=== PATIENT | female | born 1955 | race Caucasian/White ===

== ENCOUNTER 2019-06-05 09:15 | Day surgery (SDC) | payer OTHER ==
[~2019-06-05] VITALS: Ht 162.6 cm; Wt 64.9 kg
--- NOTE | ~2019-06-05 | OR ---
[facility] [address], [place] [address] Draft DATE OF OPERATION: 06/05/2019 SURGEON: Daron Hinojosa MD PREOPERATIVE DIAGNOSES: 1. Right upper quadrant abdominal pain radiating through to her back. 2. Early satiety and bloating. 3. Constipation and diarrhea. POSTOPERATIVE DIAGNOSES: 1. 4 mm polyps at 70 cm, 55 cm, 40 cm, and 18 cm. 2. Moderate sigmoid diverticulosis. 3. Iswscsw-hi-kkszftim internal and external hemorrhoids. PROCEDURE PERFORMED: Colonoscopy with hot biopsy. ESTIMATED BLOOD LOSS: None. INDICATIONS: Tammi is a 63-year-old female, asked to see me for colonoscopy. She presents with the above symptoms. She had a brain aneurysm clipped while living in [place]. Consequently, her memory is not the best. Due to her symptoms, we did send her off for an ultrasound of the right upper quadrant on 05/23/2019. That is reviewed today and found to be unremarkable, specifically with respect to the liver, gallbladder, and the extrahepatic bile ducts. In addition, she had laboratory work performed and her renal function is fine. Her liver function is fine. Her albumin is good at 4.1 and her hemoglobin was good at 14.3. She also underwent an EKG of her heart and she is in normal sinus rhythm, but there is question whether or not she may have had a septal infarct with associated ST abnormalities as well. That something I would leave to her and her primary care provider as an outpatient. In the meantime, we did review our colonoscopy handout in detail. She is not sure she has ever had a colonoscopy. She is pretty certain she had an upper endoscopy while living in [place]. She told me to her knowledge she has no family history of colon cancer or polyps. In the office then we had reviewed the nature of the test along with its risks including, but not limited to gas, bloating, crampy abdominal pain, bleeding, perforation, requiring surgery, and missed diagnosis. We also reviewed the written instructions for the bowel prep. She also understands the need for IV conscious sedation. She had a tracheostomy previously, but seems to have no airway issues. Consequently, we did schedule her with Versed and PATIENT NAME: TAMMI MATIAS OPERATIVE REPORT DATE OF : 59 REPORT #: [id number] PHYSICIAN: DARON HINOJOSA MD PCP: PAUL BRYAN REPORT IS CONFIDENTIAL AND NOT TO BE RELEASED WITHOUT AUTHORIZATION [facility] [address], [place] [address] Draft fentanyl. She had expressed understanding and wished to proceed. DESCRIPTION OF PROCEDURE: Tammi was taken into our endoscopy suite and placed in the left lateral decubitus position. She was given a total of 7 mg of Versed and 150 mcg of fentanyl. A digital rectal exam was performed. She had some wgvraxh-gv-ejksxxuq circumferential external hemorrhoids. After this, the adult colonoscope was introduced and advanced under direct visualization into the cecum itself. She took some additional sedation as the scope was advanced. Her prep was good. The scope was slowly withdrawn. We could easily see the appendiceal orifice and the ileocecal valve. We took pictures throughout for photodocumentation. The above-mentioned polyps were easily removed with the help of hot biopsy forceps. In the sigmoid colon, she had moderate sigmoid diverticulosis. They were moderate in size, few to moderate in number, and scattered about. Once in the rectum, the scope was then retroflexed and she did have icplnbs-ze-svlvnuqv internal hemorrhoid columns as well. After this, the gas was suctioned out and the colonoscope removed. Overall, Tammi tolerated the procedure quite well. RECOMMENDATIONS: I will see Tammi back in my office in 7 to 14 days to review her results. She will avoid aspirin and NSAIDs for one week. I will review her ultrasound, laboratory work, and EKG with her in the office. Again, I will leave the EKG findings up to her primary care provider. MD FELIX Carter/DANIELLAL /[id number] cc: BHARATH Martel MD Bruce Anguiano Copies: PAUL BRYAN PATIENT NAME: TAMMI MATIAS OPERATIVE REPORT DATE OF : 59 REPORT #: [id number] PHYSICIAN: DARON HINOJOSA MD PCP: PAUL BRYAN REPORT IS CONFIDENTIAL AND NOT TO BE RELEASED WITHOUT AUTHORIZATION [facility] [address] [place], [place] [address] Draft DARON HINOJOSA MD, BRUCE ~ PATIENT NAME: TAMMI MATIAS OPERATIVE REPORT DATE OF : 59 REPORT #: [id number] PHYSICIAN: DARON HINOJOSA MD PCP: PAUL BRYAN REPORT IS CONFIDENTIAL AND NOT TO BE RELEASED WITHOUT AUTHORIZATION
[~2019-06-05 09:15] MED LIST: CYMBALTA20 MG PO; LIPITOR20 MG PO; LISINOPRIL-HCT1 EACH PO; METOPROLOL SUCC50 MG PO; NORVASC5 MG PO; OMEPRAZOLE20 MG PO; ROBAXIN-750750 MG PO
--- NOTE | 2019-06-05 11:31 | NUR ---
06/05/19 1131 Sheets,Sylvia 1126 PT ARRIVED TO PACU ON 3L VIA NC, PT REACTIVE TO TACTILE STIMULI. PT DENIES NAUSEA AND PAIN. PT REORIENTED TO PACU. PT BACK TO SLEEP AND RESP EVEN AND UNLABORED.
== END 2019-06-05 12:14 | disposition home or self-care (01) ==
LOC: OPS 09:15 → DS 09:15 → OPS 10:30 → DS 10:30 → OPS 12:14
PROVIDERS: Colon & Rectal Surgery
PROC: 0DBE8ZZ Excision of Large Intestine, Via Natural or Artificial Opening Endoscopic (ICD-10-PCS; principal; 2019-06-05 10:30)
DX: D12.6 Benign neoplasm of colon, unspecified (principal); K63.5 Polyp of colon; K57.30 Diverticulosis of large intestine without perforation or abscess without bleeding; K64.8 Other hemorrhoids; K64.4 Residual hemorrhoidal skin tags; I10 Essential (primary) hypertension; K21.9 Gastro-esophageal reflux disease without esophagitis; M06.9 Rheumatoid arthritis, unspecified; F17.210 Nicotine dependence, cigarettes, uncomplicated; Z79.899 Other long term (current) drug therapy
CPT/HCPCS: 99153; 99406; G0500; J2250; J3010; J7120

== ENCOUNTER 2020-03-27 07:36 | Inpatient (IN) | payer OTHER ==
[~2020-03-27] VITALS: Ht 162.6 cm; Wt 58.7 kg
--- OUTSIDE RECORDS SUMMARY | ~2020-03-27 | XMS | Encounter Summary ---
Demographics + + + | Address | [address] | | | [place] [address] | + + + | Home Phone | | + + + | Preferred Language | Unknown | + + + | Marital Status | Single | + + + | Restorationism Affiliation | Unknown | + + + | Race | Unknown | + + + | Ethnic Group | Unknown | + + + Author + + + | Author | [facility] | | | and [place] | + + + | Organization | [facility] | | | and [place] | + + + | Address | Unknown | + + + | Phone | Unavailable | + + + Support + + +---------+ + | Name | Relationship | Address | Phone | + + +---------+ + | Johnathan Patel | ECON | Unknown | | + + +---------+ + Care Team Providers + +------+ + | Care Rrt Name | Role | Phone | + +------+ + | Johnny Anguiano MD | PCP | | + +------+ + Encounter Details +--------+ + + + + | Date | Type | Department | Care Team | Description | +--------+ + + + + | 11/24/ | Telephone | [facility] | Roxanna Collado RN | | | 2019 | | [facility] [address] | | | | | | [address] | | | | | | [place] | | | | | | [address] | | | | | | [phone] | | | +--------+ + + + + Social History + +-------+ +--------+------+ | Tobacco Use | Types | Packs/Day | Years | Date | | | | | Used | | + +-------+ +--------+------+ | Current Every Day | | 0.5 | | | | Smoker | | | | | + +-------+ +--------+------+ + +---+---+---+ | Smokeless Tobacco: | | | | | Never Used | | | | + +---+---+---+ + + +---------+ + | Alcohol Use | Drinks/Week | oz/Week | Comments | + + +---------+ + | Never | | | | + + +---------+ + + + + + | Alcohol Habits | Answer | Date Recorded | + + + + | How often do you have a drink containing | Never | 11/12/2019 | | alcohol? | | | + + + + | How many drinks containing alcohol do you | Not asked | | | have on a typical day when you are | | | | drinking? | | | + + + + | How often do you have six or more drinks on | Not asked | | | one occasion? | | | + + + + + + + | Sex Assigned at | Date Recorded | | | | + + + | Not on file | | + + + documented as of this encounter Plan of Treatment +--------+---------+ + + + | Date | Type | Specialty | Care Team | Description | +--------+---------+ + + + | 06/10/ | Office | Pulmonology | [place], | | | 2019 | Visit | | Kayy Boyd, | | | | | | MD [address] | | | | | | [place], | | | | | | [place] [address] | | | | | | [phone] | | | | | | | | +--------+---------+ + + + documented as of this encounter Visit Diagnoses Not on filedocumented in this encounter"
--- OUTSIDE RECORDS SUMMARY | ~2020-03-27 | XMS | Encounter Summary ---
Demographics + + + | Address | [address] | | | [place] [address] | + + + | Home Phone | | + + + | Preferred Language | Unknown | + + + | Marital Status | Single | + + + | Orthodoxy Affiliation | Unknown | + + + | Race | Unknown | + + + | Ethnic Group | Unknown | + + + Author + + + | Author | [facility] | | | and [place] | + + + | Organization | [facility] | | | and [place] | [...] Team Providers + +------+ + | Care Fish And Wildlife Warden Name | Role | Phone | + +------+ + | Ruben An | PCP | | + +------+ + Encounter Details +--------+ + + + + | Date | Type | Department | Care Team | Description | +--------+ + + + + | 11/12/ | Documentati | [facility] | Brigitte Márquez RN | | | 2020 | on | PULMONOLOGY [address] | | | | | | [address] | | | | | | [place] | | | | | | [address] | | | | | | [phone] | | | +--------+ + + + [...] + + documented as of this encounter Progress Notes Brigitte Márquez RN - 11/12/2019 11:46 AM PSTCompleted teaching regarding Spiriva hand inhaler. Tammi stated understanding of all education. Tammi completed accurate return demonstratio n using Spiriva hand inhaler. Tammi had no further questions or concerns. Electronically si gned by Brigitte Márquez RN at 11/12/2019 11:48 AM PSTdocumented in this encounter Plan of Treatment +--------+---------+ + + + | Date | Type | Specialty | Care Team | Description | +--------+---------+ + + + | 06/10/ | Office | Pulmonology | [place], | | 2019 | Visit | | Kayy Boyd, | | | | | | MD [address] | | | | | | [place], | | | | | | [place] [address] | | | | | | [phone] | | | | | | | | +--------+---------+ + + + documented as of this encounter Visit Diagnoses Not on filedocumented in this encounter"
--- OUTSIDE RECORDS SUMMARY | ~2020-03-27 | XMS | Encounter Summary ---
Demographics + + + | Address | [address] | | | [place] [address] | + + + | Home Phone | | + + + | Preferred Language | Unknown | + + + | Marital Status | Single | + + + | Mormonism Affiliation | Unknown | + + + | Race | Unknown | + + + | Ethnic Group | Unknown | + + + Author + + + | Author | [facility] | | | and [place] | + + + | Organization | [facility] | | | and [place] | [...] Team Providers + +------+ + | Care Workers Compensation Analyst Name | Role | Phone | + +------+ + | Johnny Anguiano MD | PCP | | + +------+ + Reason for Referral Diagnostic/Screening (Routine) + +--------+ + + + + | Status | Reason | Specialty | Diagnoses / | Referred By | Referred To | | | | | Procedures | Contact | Contact | + +--------+ + + + + | Authorizatio | | | Diagnoses | [place], | [facility] | | n not | | | Chronic | [place] | [facility] | | Required | | | obstructive | MD Deb | [address] | | | | | pulmonary | [address] | | | | | disease, | [address] | [place], [place] | | | | | unspecified | [place] | [address] | | | | | COPD type | [place] | Phone: | | | | | ([facility]) | [address] | [phone] | | | | | Procedures | Phone: | Fax: | | | | | Pulmonary | [phone] | [phone] | | | | | function | Fax: | | | | | | test | [phone] | | + +--------+ + + + + Reason for Visit Evaluate & Treat (Routine) +--------+--------+ + + + + | Status | Reason | Specialty | Diagnoses / | Referred By | Referred To | | | | | Procedures | Contact | Contact | +--------+--------+ + + + + | Closed | | Pulmonology | Diagnoses | Matilde, | Bassam, | | | | | SOB | Clayton Hartman | Kayy | | | | | (shortness | [address] | Deb[address] | | | | | of breath) | Gaye Rodas | [address] | | | | | RIGGS (dyspnea | [place] | [place] | | | | | on | [place] | [place] | | | | | exertion) | [address] | [address] Phone: | | | | | | Phone: | [phone] | | | | | | [phone] | Fax: | | | | | | Fax: | [phone] | | | | | | [phone] | | +--------+--------+ + + + + Encounter Details +--------+ + + + + | Date | Type | Department | Care Team | Description | +--------+ + + + + | 02/11/ | Virtual | [facility] | Bassam, | Chronic obstructive | | 2019 | Office | PULMONOLOGY [address] | Kayy Boyd, | pulmonary disease, | | | Visit | [address] [address] | MD [address] | unspecified COPD | | | | [place] | [address], | type (HCC) (Primary | | | | [address] | [place] [address] | Dx); Adenocarcinoma, | | | | [phone] | [phone] | lung, right (HCC); | | | | | | Chronic respiratory | | | | | | failure with hypoxia | | | | | | ([facility]); Personal | | | | | | history of tobacco | | | | | | use, presenting | | | | | | hazards to health | +--------+ + + + + Social [...] | | | + +---+---+---+ + + | Tobacco Cessation: Ready to Quit: Yes; Counseling Given: Yes | + + + + +---------+ + | Alcohol Use | Drinks/Week | oz/Week | Comments | + + +---------+ + | Not Currently | | | occasionally maybe | + + +---------+ + + + [...] + documented as of this encounter Progress Kayy Robertson MD - 02/12/2020 10:30 AM PDTFormatting of this note might be d ifferent from the original. This exam was initially conducted via a secure 256-bit AES encrypted bidirectional video se [employer]. Service was provided tvvl-av-huah with the patient via interactive videoconferencing Video start time 1035 Video end time 1050 Total time (in minutes) including non ycne-ig-xuez time (reviewing records, documentation, etc..) 30 You have chosen to receive care through the use of telemedicine. Telemedicine enables [facility] care providers at different locations to provide safe, effective and convenient care throu gh the use of technology. As with any health care service, there are risks associated with t he use of telemedicine, including equipment failure, poor image resolution and information s ecurity issues. Do you understand the risks and benefits of telemedicine as I have explained them to you? " Yes" Have your questions regarding telemedicine been answered? "Yes" Participant is currently at home Do you consent to the use of telemedicine in your medical care today? Yes. Last question, I need to confirm where are you physically located right now? Answer: Patient confirms they are located in a state where Kayy Mitchell M D am licensed. Subjective Patient ID: Tammi Laura is a 64 y.o. female with CAD post PCI, HPL, history of trac heostomy due to a severe tooth infection, history of RA (untreated currently but used to be on Orencia), active smoker, suspected COPD here to establish care. HPI Ms Laura is a 64 yr old woman who has a history of CAD post PCI, history of tracheostomy for an infected tooth about 30 years ago, active smoker, referred to us for dyspnea on exert ion. She says that she has been short of breath for many years, but this seems to have been worsened by an acute URI about 2-3 months ago. She has an albuterol inhaler to use as needed which she thinks has not really helped as much. Clinically, she is short of breath with moderate exertion -when climbing an incline, walkin g for a prolonged period of time, carrying a heavy load and walking, and going grocery shopp ing. She does minor chores at home, and is able to cook for her family. She seems to do well with ADLs and is able to shower and get dressed without difficulty. She has a daily cough w ith clear phlegm, and also complains of significant post nasal drainage. She says that this is worse during the morning, and so is her shortness of breath. She denies chest pains, but does get chest tightness. She has untreated RA and does have arthralgias of her hands. She d enies nausea or vomiting, but does have persistent and uncontrolled reflux s/s, and RUQ pain . She is getting evaluated for cholecystectomy and possibly a hiatal hernia repair. Interval History Ms Laura comes in for telemedicine follow up. She was diagnosed with adenocarcinoma of th e RUL -nodule found on a CXR and then a CT scan. She has completed radiation txt, and will n eed get repeat CT of the chest soon. She gets care from [facility] through Dr Huber and Dr Bernal. Of note, she developed a PTX post biopsy of a nodule we noted on routine imaging. She was s ent home with oxygen after this. She has not used this often. She complains that she has bee n feeling fatigued. Her dyspnea remains the same. She has stayed at home and ascribed to soc ial distancing. She denies having any cough. She has used Spiriva daily, and not needed albuterol HFA. She has not used oxygen at home a t all, and has not monitored her saturations. SOCIAL HISTORY She is an active smoker, 1/2 to 1 pack a day for 40 years. 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 She used to live in [place]. She has dogs at home. She denies owning birds. Family history significant for COPD and CAD. The following elements of the patient's history were reviewed and updated as appropriate. T hey are available elsewhere in the patient record. allergies, current medications, past fam birgit history, past medical history, past social history, past surgical history and problem li st Review of Systems Constitutional: Negative for fatigue, fever and unexpected weight change. HENT: Positive for congestion and postnasal drip. Negative for sore throat, trouble swallow ing and voice change. Respiratory: Positive for cough, shortness of breath and wheezing. Negative for apnea, chok ing and stridor. Cardiovascular: Negative for chest pain, palpitations and leg swelling. Gastrointestinal: Positive for abdominal pain. Negative for constipation, diarrhea, nausea and vomiting. Genitourinary: Negative for difficulty urinating. Musculoskeletal: Positive for arthralgias. Negative for back pain, gait problem, joint swel ling, myalgias and neck pain. Skin: Negative for rash. Neurological: Negative for dizziness. Psychiatric/Behavioral: Negative for sleep disturbance. All other systems reviewed and are negative. Past Medical History: Diagnosis Date Arthritis COPD (chronic obstructive pulmonary disease) (HCC) Coronary artery disease Fibromyalgia Hypertension Past Surgical History: Procedure Laterality Date BRAIN ANEURYSM SURGERY CARDIAC CATHERIZATION CERVICAL SPINE SURGERY CORONARY ANGIOPLASTY CORONARY ANGIOPLASTY WITH STENT PLACEMENT CRANIECTOMY HYSTERECTOMY LUNG BIOPSY 11/26/2019 Procedure: CT GUIDED BIOPSY LUNG OR MEDIASTINUM - Location: [facility] CT TRACHEOSTOMY CLOSURE VAGINA SURGERY Objective There were no vitals taken for this visit. Physical Exam GENERAL: pleasant, cooperative, oriented, not in distress NEURO: awake and oriented, no focal neurologic deficits LABORATORY AND IMAGING Pulmonary Function Test: None done FEV1 FVC FEV1/FVC TLC RV/TLC DLCO No imaging to review. PET CT done on 11/18/19 IMPRESSION: Summary of Target Lesions: 1. Lobulated spiculated mass in the posterolateral right lower lobe /80 measuring 2.3 x 1.9 cm, SUV 11.5. 2. Posterior right upper lobe nodule /52 measuring 4 mm, SUV 1.0. 3. Anterior right upper lobe nodule 4/62 measuring 5 mm, SUV 1.4. Other PET/CT Findings: 1. A few presumed blebs in the bilateral upper lobes. See above. 2. Hysterectomy. Comments: 1. Right lower lobe pulmonary mass with uptake, probably due to primary lung malignancy, with multiple small bilateral pulmonary nodules with faint uptake. I cannot exclude metastatic disease. 2. Mild uptake in both hilar regions, probably physiologic. Histopathology 11/26/19 FINAL PATHOLOGIC DIAGNOSIS: Lung, right lower lobe, biopsy: - Well to moderately differentiated adenocarcinoma Assessment /Plan 1. Chronic obstructive pulmonary disease, unspecified COPD type (HCC) Ms Laura has COPD. She has remained compliant with Spiriva 18 mcg daily and prn albuterol . We still do not have baseline PFT due to urgent diagnosis of cancer. We will postpone this until the pandemic is done. Continue with efforts at staying active at home. 2. Adenocarcinoma, lung, right (HCC) She was found to have a RUL nodule that was found to be adenocarcinoma. She has undergone r adiation txt and will soon have a repeat CT chest to determine its progress/resolution. 3. Chronic respiratory failure with hypoxia (HCC) I have instructed her to obtain an oximeter and to monitor her saturations during the day, especially when walking. She should go back to using her oxygen if she finds that sats drop to 88%. I will send overnight oximetry to determine if she will need oxygen supplementation at night. 4. Personal history of tobacco use, presenting hazards to health Continue with efforts at smoking cessation. Thank you for allowing us to participate in this patient's care. A return visit has been re quested/scheduled in 4 months for close clinical follow up. The patient was instructed to ca ll our clinic for any questions, and for any concerns regarding worsening dyspnea, cough or change in sputum production. We will see the patient sooner than the recommended follow up d ate, if with any worsening of symptoms. Kayy Banegas MD Pulmonary and Critical Care Medicine [facility] [address] [facility] [place] [address] documente d in this encounter Miscellaneous Notes Addendum Note - Kayy Banegas MD - 02/12/2020 10:30 AM PDT Addended by: KAYY BURNS on: 02/18/2020 04:12 PM Modules accepted: Orders documen felicia in this encounter Plan of Treatment +--------+---------+ + + + | Date | Type | Specialty | Care Team | Description | +--------+---------+ + + + | 06/10/ | Office | Pulmonology | Bassam, | | | 2019 | Visit | | Kayy Boyd, | | | | | | [address] | | | | | | [place], | | | | | | [place] [address] | | | | | | [phone] | | | | | | | | +--------+---------+ + + + + +------+--------+ + + | Name | Type | Priori | Associated Diagnoses | Order Schedule | | | | ty | | | + +------+--------+ + + | Pulmonary function | PFT | Routin | Chronic | Expected: | | test | | e | obstructive | 02/19/2020, Expires: | | | | | pulmonary disease, | 02/17/2021 | | | | | unspecified COPD | | | | | | type (HCC) | | + +------+--------+ + + documented as of this encounter Visit Diagnoses + + | Diagnosis | + + | Chronic obstructive pulmonary disease, unspecified COPD type (HCC) - Primary | + + | Adenocarcinoma, lung, right (HCC) | + + | Chronic respiratory failure with hypoxia (HCC) Chronic respiratory failure | + + | Personal history of tobacco use, presenting hazards to health | + + documented in this encounter
--- OUTSIDE RECORDS SUMMARY | ~2020-03-27 | XMS | Clinical Summary ---
Demographics + + + | Address | [address] | | | [place] [address] | + + + | Home Phone | | + + + | Preferred Language | Unknown | + + + | Marital Status | Single | + + + | Congregational Affiliation | Unknown | + + + | Race | Unknown | + + + | Ethnic Group | Unknown | + + + Author + + + | Author | [facility] | | | and [place] | + + + | Organization | [facility] | | | and [place] [...] Team Providers + +------+ + | Care Etiquette Teacher Name | Role | Phone | + +------+ + | Johnny Anguiano MD | PCP | | + +------+ + Allergies No Known Allergies Medications + + + +---------+------+------+-------+ | Medication | Sig | Dispensed | Refills | Star | End | Statu | | | | | | t | Date | s | | | | | | Date | | | + + + +---------+------+------+-------+ | ACETAMINOPHEN | | | 0 | 11/0 | | Activ | | EXTRA STRENGTH 500 | | | | 6/20 | | e | | MG tablet | | | | 19 | | | + + + +---------+------+------+-------+ | amLODIPine | Take 5 mg by mouth | | 0 | 01/2 | | Activ | | (NORVASC) 5 mg | Daily. | | | 06/06 | | e | | tablet | | | | 20 | | | + + + +---------+------+------+-------+ | | Daily. | | 0 | 01/2 | | Activ | | lisinopril-hydrochlo | | | | 0/20 | | e | | rothiazide | | | | 20 | | | | (PRINZIDE,ZESTORETIC | | | | | | | | ) 20-12.5 MG per | | | | | | | | tablet | | | | | | | + + + +---------+------+------+-------+ | metoprolol | Daily. | | 0 | 02/1 | | Activ | | succinate | | | | 8/20 | | e | | (TOPROL-XL) 50 mg 24 | | | | 20 | | | | hr tablet | | | | | | | + + + +---------+------+------+-------+ | atorvaSTATin | Take 20 mg by mouth | | 0 | 02/0 | | Activ | | (LIPITOR) 20 mg | nightly. | | | 8/20 | | e | | tablet | | | | 20 | | | + + + +---------+------+------+-------+ | DULoxetine | Daily. | | 0 | 02/1 | | Activ | | (IRENKA) [address] | | | | 8/20 | | e | | capsule | | | | 20 | | | + + + +---------+------+------+-------+ | methocarbamol | every 8 hours as | | 0 | 01/0 | | Activ | | (ROBAXIN) 750 mg | needed. | | | 6/20 | | e | | tablet | | | | 20 | | | + + + +---------+------+------+-------+ | omeprazole | Take 20 mg by mouth | | 0 | 02/1 | | Activ | | (PRILOSEC) 20 mg | 2 times daily. | | | 8/20 | | e | | capsule | | | | 20 | | | + + + +---------+------+------+-------+ | albuterol 90 | Inhale 2 puffs into | | 0 | 01/0 | | Activ | | mcg/puff inhaler | the lungs every 4 | | | 4/20 | | e | | | hours as needed. | | | 20 | | | + + + +---------+------+------+-------+ | tiotropium | inhale contents of 1 | 30 | 3 | 04/0 | | Activ | | (SPIRIVA HANDIHALER) | capsule by mouth | capsule | | 8/20 | | e | | 18 mcg inhalation | once daily (DO NOT | | | 20 | | | | capsuleIndications: | SWALLOW) | | | | | | | Chronic obstructive | | | | | | | | pulmonary disease, | | | | | | | | unspecified COPD | | | | | | | | type ([facility]) | | | | | | | + + + +---------+------+------+-------+ | aspirin 81 mg | Chew and swallow 1 | | 0 | | | Activ | | chewable tablet | tablet Daily. | | | | | e | + + + +---------+------+------+-------+ Active Problems + + + | Problem | Noted Date | + + + | Coronary artery disease involving [place] coronary artery of | 02/16/2020 | | [place] heart without angina pectoris | | + + + | HTN (hypertension) | 02/16/2020 | + + + | Tobacco abuse | 02/16/2020 | + + + | Frontal skull lesion | 01/05/2020 | + + + | Incidental pulmonary nodule, greater than or equal to 8mm | 11/27/2019 | + + + Encounters +--------+ + + + + | Date | Type | Specialty | Care Team | Description | +--------+ + + + + | 02/15/ | Virtual | Cardiology | Supriya Becerra DO | Coronary artery | | 2019 | Office | | | disease involving | | | Visit | | | [place] coronary | | | | | | artery of [place] | | | | | | heart without angina | | | | | | pectoris; | | | | | | Hypertension, | | | | | | unspecified type; | | | | | | Tobacco abuse | +--------+ + + + + | 02/11/ | Virtual | Pulmonology | Bassam, | Chronic obstructive | | 2019 | Office | | Kayy Boyd, | pulmonary disease, | | | Visit | | MD | unspecified COPD | | | | | | type (HCC) (Primary | | | | | | Dx); Adenocarcinoma, | | | | | | lung, right (HCC); | | | | | | Chronic respiratory | | | | | | failure with hypoxia | | | | | | (HCC); Personal | | | | | | history of tobacco | | | | | | use, presenting | | | | | | hazards to health | +--------+ + + + + | 02/11/ | Documentati | Pulmonology | Evert Devries, | Other (Faxed rx for | | 2019 | on | | Setup Technician | overnight oximetry | | | | | | to In Home ) | +--------+ + + + + | 02/09/ | Telephone | Neurosurgery | Clayton Howard DO | Imaging | | 2019 | | | | | +--------+ + + + + | 01/21/ | Office | Cardiology | Supriya Becerra DO | Atherosclerosis of | | 2019 | Visit | | | coronary artery, | | | | | | angina presence | | | | | | unspecified, | | | | | | unspecified vessel | | | | | | or lesion type, | | | | | | unspecified whether | | | | | | [place] or | | | | | | transplanted heart | | | | | | (Primary Dx) | +--------+ + + + + | 01/04/ | Virtual | Neurosurgery | Clayton Howard DO | Frontal skull lesion | | 2019 | Office | | | (Primary Dx) | | | Visit | | | | +--------+ + + + + from Last 3 Months Family History + + +------+ + | Medical History | Relation | Name | Comments | + + +------+ + | COPD | Father | | | + + +------+ + | Heart attack | Father | | | + + +------+ + | High cholesterol | Father | | | + + +------+ + | Hypertension | Father | | | + + +------+ + + +------+ + + | Relation | Name | Status | Comments | + +------+ + + | Father | | | | + +------+ + + | Mother | | | | + +------+ + + Social History + +-------+ +--------+------+ [...] on file | | + + + Last Filed Vital Signs + + + + + | Vital Sign | Reading | Time Taken | Comments | + + + + + | Blood Pressure | 100/70 | 01/22/2020 9:18 AM | | | | | PDT | | + + + + + | Pulse | 74 | 01/22/2020 9:18 AM | | | | | PDT | | + + + + + | Temperature | 36.9 C (98.4 F) | 11/27/2019 3:45 PM | | | | | PDT | | + + + + + | Respiratory Rate | 16 | 11/27/2019 3:45 PM | | | | | PDT | | + + + + + | Oxygen Saturation | 96% | 01/22/2020 9:18 AM | | | | | PDT | | + + + + + | Inhaled Oxygen | - | - | | | Concentration | | | | + + + + + | Weight | 58.5 kg (129 lb) | 02/16/2020 12:45 PM | | | | | PDT | | + + + + + | Height | 162.6 cm (5' 4") | 02/16/2020 12:45 PM | | | | | PDT | | + + + + + | Body Mass Index | 22.14 | 02/16/2020 12:45 PM | | | | | PDT | | + + + + + Plan of Treatment +--------+---------+ + + + [...] | | | | | | [place] [id number] | | | | | | [phone] | | | | | | | | +--------+---------+ + + + + + +-------+ + | Health Maintenance | Due Date | Last | Comments | | | | Done | | + + +-------+ + | Hepatitis C | | | | | Screening | 7 | | | + + +-------+ + | Vaccine: | | | | | Pneumococcal 19-64 | 3 | | | | (1 of 1 - PPSV23) | | | | + + +-------+ + | Vaccine: | | | | | Dtap/Tdap/Td (1 - | 6 | | | | Tdap) | | | | + + +-------+ + | Cervical Cancer | | | | | Screening (Pap) | 7 | | | + + +-------+ + | Colorectal Cancer | | | | | Screening | 7 | | | | (Colonoscopy) | | | | + + +-------+ + | Vaccine: Zoster (1 | | | | | of 2) | 7 | | | + + +-------+ + | Breast Cancer | | | | | Screening | 2 | | | + + +-------+ + | Statin Therapy | | | | | (optimal intensity) | 9 | | | + + +-------+ + | Vaccine: Influenza | | | | | (#1) | 0 | | | + + +-------+ + Procedures + +--------+ + + + | Procedure Name | Priori | Date/Time | Associated Diagnosis | Comments | | | ty | | | | + +--------+ + + + | ECG - EXTERNAL SCAN | | 02/04/2020 | | Results for this | | | | 12:00 AM | | procedure are in the | | | | PDT | | results section. | + +--------+ + + + | IMAGING REPORT - | | 02/04/2020 | | Results for this | | EXTERNAL SCAN | | 12:00 AM | | procedure are in the | | | | PDT | | results section. | + +--------+ + + + | ECHO-EXTERNAL SCAN | | 01/30/2020 | | Results for this | | | | 12:00 AM | | procedure are in the | | | | PDT | | results section. | + +--------+ + + + | ECG 12 LEAD | Routin | 01/22/2020 | Atherosclerosis of | Results for this | | | e | 9:23 AM | coronary artery, | procedure are in the | | | | PDT | angina presence | results section. | | | | | unspecified, | | | | | | unspecified vessel | | | | | | or lesion type, | | | | | | unspecified whether | | | | | | [place] or | | | | | | transplanted heart | | + +--------+ + + + from Last 3 Months Results IMAGING REPORT - EXTERNAL SCAN (02/04/2020 12:00 AM PDT) + + + | Narrative | Performed At | + + + | Ordered by an | | | unspecified provider. | | + + + ECG - EXTERNAL SCAN (02/04/2020 12:00 AM PDT) + + + | Narrative | Performed At | + + + | Ordered by an | | | unspecified provider. | | + + + ECHO-EXTERNAL SCAN (01/30/2020 12:00 AM PDT) + + + | Narrative | Performed At | + + + | Ordered by an | | | unspecified provider. | | + + + ECG 12 lead (01/22/2020 9:23 AM PDT) + + + + + + | Component | Value | Ref Range | Performed | Pathologist | | | | | At | Signature | + + + + + + | VENTRICULAR | 73 | BPM | [facility] | | | RATE EKG | | | | | + + + + + + | ATRIAL RATE | 73 | BPM | [facility] | | + + + + + + | P-R | 142 | ms | [facility] | | | INTERVAL | | | | | + + + + + + | QRS | 92 | ms | [facility] | | | DURATION | | | | | + + + + + + | Q-T | 412 | ms | [facility] | | | INTERVAL | | | | | + + + + + + | Q-T | 453 | ms | [facility] | | | INTERVAL | | | | | | (CORRECTED) | | | | | + + + + + + | P WAVE AXIS | 7 | degrees | [facility] | | + + + + + + | QRS AXIS | 52 | degrees | [facility] | | + + + + + + | T AXIS | -165 | degrees | [facility] | | + + + + + + | INTERPRETAT | Normal sinus | | [facility] | | | ION TEXT | rhythmSeptal infarct | | | | | | (cited on or before | | | | | | 22-JAN-2020)Marked ST | | | | | | abnormality, possible | | | | | | inferior subendocardial | | | | | | injuryAbnormal ECGNo | | | | | | prior ECG for | | | | | | comparisonConfirmed by | | | | | | SUPRIYA BECERRA MD ([id number]) | | | | | | on 01/23/2020 11:02:29 AM | | | | + + + + + + + + | Specimen | + + | | + + + + + | Narrative | Performed At | + + + | | | + + + + +---------+ + + | Performing | Address | City/State/Zipcode | Phone Number | | Organization | | | | + +---------+ + + | [facility] | | | | + +---------+ + + from Last 3 Months Insurance + +--------+ +--------+ +---------+--------+ | Payer | Benefi | Subscriber | Effect | Phone | Address | Type | | | t Plan | ID | zora | | | | | | / | | Dates | | | | | | Group | | | | | | + +--------+ +--------+ +---------+--------+ | [employer] | [employer] | [id number] | 08/05/ | [phone] | | Medica | | MEDICAID HMO | HEALTH | | 2019-P | 1 | | id | | | MDCD | | resent | | | | | | [place]MO [place] | | | | | | + +--------+ +--------+ +---------+--------+ | [employer] | [employer] | [id number] | | [phone] | | Medica | | MEDICAID HMO | HEALTH | | 020-Pr | 1 | | id | | | MDCD | | esent | | | | | | [place]MO [place] | | | | | | + +--------+ +--------+ +---------+--------+ + +--------+ +--------+ + + | Guarantor Name | Accoun | Relation to | Date | Phone | Billing Address | | | t Type | Patient | of | | | | | | | | | | + +--------+ +--------+ + + | Tammi Laura | Person | Self [birth year] | [address] | | | al/Fam | | 1955 | [phone] | [place] [address] | | | birgit | | | 0 (Home) | | + +--------+ +--------+ + + | Tammi Laura | Person | Self | [birth year] | [address] | | | al/Fam | | 1955 | [phone] | [place] [address] | | | birgit | | | 0 (Home) | | + +--------+ +--------+ + + Advance Directives + + + + + | Type | Date Recorded | Patient | Explanation | | | | It Security Specialist | | + + + + + | Power of | | | | | It Security Specialist | | | | + + + + + | Advance | 11/26/2019 1:20 | | | | Directive | PM | | | + + + + + + + + + + | Code Status | Date | Date | Comments | | | Activated | Inactivated | | + + + + + | Full Code | 11/26/2019 | 11/28/2019 | | | | 2:21 PM | 4:05 AM | | + + + + +
--- OUTSIDE RECORDS SUMMARY | ~2020-03-27 | XMS | Encounter Summary ---
Demographics + + + | Address | [address] | | | [place] [address] | + + + | Home Phone | | + + + | Preferred Language | Unknown | + + + | Marital Status | Single | + + + | Scientology Affiliation | Unknown | + + + | Race | Unknown | + + + | Ethnic Group | Unknown | + + + Author + + + | Author | [facility] | | | and [place] | + + + | Organization | [facility] [...] Team Providers + +------+ + | Care Parachute Accessories Attacher Name | Role | Phone | + +------+ + | Johnny Anguiano MD | PCP | | + +------+ + Reason for Visit + + + | Reason | Comments | + + + | Follow-up | telephone - 3 wk / stress test / echo | + + + Encounter Details +--------+ + + + + | Date | Type | Department | Care Team | Description | +--------+ + + + + | 02/15/ | Virtual | [facility] | Ana Becerra DO | Coronary artery | | 2019 | Office | [place] [place] | [address] | disease involving | | | Visit | [address] | [place] | [place] coronary | | | | [place], [place] | [address] | artery of [place] | | | | [address] | | heart without angina | | | | [phone] | | pectoris; | | | | | | Hypertension, | | | | | | unspecified type; | | | | | | Tobacco abuse | +--------+ + + + + Social [...] + + documented as of this encounter Last Filed Vital Signs + + + + + | Vital Sign | Reading | Time Taken | Comments | + + + + + | Blood Pressure | - | - | | + + + + + | Pulse | - | - | | + + + + + | Temperature | - | - | | + + + + + | Respiratory Rate | - | - | | + + + + + | Oxygen Saturation | - | - | | + + + + + [...] | | + + + + + documented in this encounter Progress Notes Ana Becerra DO - 02/16/2020 1:00 PM PDT Clinical discussion length: 11-20 min ([id number]) Patient has not been seen in office within the past 7 days, and outcome of this call is not to recommend soonest available office visit. Participants: Patient Participant verbally confirmed the choice to initiate care by, and consents to receive care by Telephone. Participant is currently at home [facility] Cardiology Cardiology Follow Note Reason for Consultation: CAD History Obtained From: patient HISTORY OF PRESENT ILLNESS: Cardiac Problem List CAD history of stent in 2007 [place] History of brain aneurysm s/p craniotomy in 2000 HTN Non Cardiac Problem List Fibromyalgia RA COPD Lung cancer History of tracheostomy due to severe tooth infection The patient is a 64-year-old female, who presents to the Cardiology office for initial cons ultation regarding history of atherosclerotic heart disease. She reports that in 2007, she was going for a yearly checkup and was noted to have an abnormal EKG. She did not have any symptoms at that time. She had a stress test, which led to a coronary angiogram. She recei amrit 2 stents at that time. She has not have her stent cards. She denies any issues with c hest pain since 2007. She has not had any repeat angiograms. She was recently being worked up for cholecystitis and hiatal hernia and was planning on undergoing surgery for these pro cedures. She was referred to Pulmonary and Cardiology for preoperative clearance. During h er pulmonary evaluation, she was diagnosed with lung cancer. There are new plans for surgic al resection of the lung cancer, but she is undergoing treatments with radiation. She foll ows with Dr. Banegas. She reports that recently she has not been very active at all lately , especially with the COVID-19 lock down. The most activity that she does are her ADLs. I do not believe that she does up to 4 METs of activity. She denies any chest pains or shortn ess of breath recently. She does have shortness of breath previously, but this has been imp roved after initiation of Spiriva. She denies any lower extremity swelling, orthopnea, PND . She gets occasional palpitations, which she reports are chronic, but denies any episodes of syncope or presyncope. She is a current smoker and is working on quitting. She does hav e nicotine patches at home, but has not committed to quitting yet. Interim history I last saw the patient on 01/22/2020. At that time, I ordered a complete echocardiogram an d a nuclear stress test. Her echocardiogram demonstrated normal left ventricular function. She did have moderate concentric left ventricular hypertrophy and she had grade 1 diastolic dysfunction. Her stress test was negative for evidence of infarct or ischemia. Ejection f raction was 57 percent. We reviewed the results of these tests today. Since we last saw lissa mayen, she denies any new cardiac symptoms. No chest pains. She continues treatment fo r her adenocarcinoma of the lung and is followed by Dr. Banegas. Review of Systems Constitutional: Negative for fatigue. HENT: Negative for nosebleeds. Eyes: Negative for visual disturbance. Respiratory: Negative for cough and positive for shortness of breath. Cardiovascular: see HPI Gastrointestinal: Negative for nausea, vomiting, abdominal pain and blood in stool. Genitourinary: Negative for hematuria or dysuria. Musculoskeletal: Negative for myalgias, back pain and arthralgias. Skin: Negative for color change. Neurological: Negative for dizziness, syncope and numbness. Hematological: Does not bruise/bleed easily. Psychiatric/Behavioral: The patient is not nervous/anxious. PAST MEDICAL & SURGICAL HISTORY Past Medical History: Diagnosis Date Arthritis COPD (chronic obstructive pulmonary disease) (HCC) Coronary artery disease Fibromyalgia Hypertension Past Surgical History: Procedure Laterality Date BRAIN ANEURYSM SURGERY CARDIAC CATHERIZATION CERVICAL SPINE SURGERY CORONARY ANGIOPLASTY CORONARY ANGIOPLASTY WITH STENT PLACEMENT CRANIECTOMY HYSTERECTOMY LUNG BIOPSY 11/26/2019 Procedure: CT GUIDED BIOPSY LUNG OR MEDIASTINUM [place] [facility] [place]HE[place] CLOS[place] VAGINA SURGERY MEDICATIONS Home Medications Outpatient Encounter Medications as of 02/16/2020 Medication Sig Dispense Refill ACETAMINOPHEN EXTRA STRENGTH 500 MG tablet albuterol 90 mcg/puff inhaler Inhale 2 puffs into the lungs every 4 hours as needed. amLODIPine (NORVASC) 5 mg tablet Take 5 mg by mouth Daily. aspirin 81 mg chewable tablet Chew and swallow 1 tablet Daily. atorvaSTATin (LIPITOR) 20 mg tablet Take 20 mg by mouth nightly. DULoxetine (IRENKA) [address] capsule Daily. lisinopril-hydrochlorothiazide (PRINZIDE,ZESTORETIC) 20-12.5 MG per tablet Daily. methocarbamol (ROBAXIN) 750 mg tablet every 8 hours as needed. metoprolol succinate (TOPROL-XL) 50 mg 24 hr tablet Daily. omeprazole (PRILOSEC) 20 mg capsule Take 20 mg by mouth 2 times daily. tiotropium (SPIRIVA HANDIHALER) 18 mcg inhalation capsule inhale contents of 1 capsule by mouth once daily (DO NOT SWALLOW) 30 capsule 3 No facility-administered encounter medications on file as of 02/16/2020. Allergies No Known Allergies FAMILY HISTORY Family History Problem Relation Age of Onset Heart attack Father High cholesterol Father Hypertension Father COPD Father - Father had several IN/valve replacement- CAD started in his 50s SOCIAL HISTORY Social History Socioeconomic History Marital status: Single Spouse name: Not on file Number of children: Not on file Years of education: Not on file Highest education level: Not on file Occupational History Not on file Social Needs Financial resource strain: Not on file Food insecurity: Worry: Not on file Inability: Not on file Transportation needs: Medical: Not on file Non-medical: Not on file Tobacco Use Smoking status: Current Every Day Smoker Packs/day: 0.50 Smokeless tobacco: Never Used Substance and Sexual Activity Alcohol use: Not Currently Frequency: Never Comment: occasionally maybe Drug use: Yes Types: Marijuana Comment: gummies for sleep Sexual activity: Not on file Lifestyle Physical activity: Days per week: Not on file Minutes per session: Not on file Stress: Not on file Relationships Social connections: Talks on phone: Not on file Gets together: Not on file Attends pentecostal service: Not on file Active member of club or organization: Not on file Attends meetings of clubs or organizations: Not on file Relationship status: Not on file Intimate partner violence: Fear of current or ex partner: Not on file Emotionally abused: Not on file Physically abused: Not on file Forced sexual activity: Not on file Other Topics Concern Not on file Social History Narrative Not on file PHYSICAL EXAM Vital Signs: There were no vitals taken for this visit. Physical Exam GENERAL: Well developed, well nourished, in no distress. Appears approximately stated age . HEENT: Normocephalic, atraumatic. EYES: PERRL, sclerae anicteric, no xanthelsasmas NECK: No JVD, lymphadenopathy, thyromegaly, bruits. Carotid pulses are 2+ bilaterally LUNGS: Clear bilaterally, with no rales, rhonchi or wheezing noted, respirations unlabored HEART: Nondisplaced PMI, regular rate and rhythm, S1, S2 normal. No murmurs, rubs or gall ops noted. ABDOMEN: Soft, nontender, no organomegaly, masses or bruits. Bowel sounds are normal in a ll 4 quadrants. EXTREMITIES: No edema. Radial pulses 2+ bilaterally. DP and PT pulses are 2+ bilaterally. SKIN: Warm and dry, capillary refill is normal, no lesions. NEUROLOGIC: Awake, alert and oriented x 3. No focal motor deficits. PSYCHIATRIC: Appropriate, affect appears normal DATA Lab Results Component Value Date WBC 9.27 11/27/2019 HGB 13.2 11/27/2019 HCT 39.4 11/27/2019 PLT 230 11/27/2019 Lab Results Component Value Date INR 1.0 11/26/2019 Lab Results Component Value Date NA 138 11/27/2019 K 3.5 11/27/2019 CL 102 11/27/2019 CO2 30 11/27/2019 BUN 10 11/27/2019 CREA 0.63 11/27/2019 No results found for: CHOL, TRIG, HDL, LDL, TSH EKG: Last Echo: 03/01/2020 Normal left ventricular cavity size, moderate concentric left ventricular hypertrophy, ejec tion fraction is 60 to 65%, no regional wall motion abnormality, grade 1 diastolic dysfuncti on. Last stress test: 02/04/2020 No evidence of infarct or ischemia, ejection fraction is 57%. Last cath: Carotid US: AAA screening: Lower extremity US: OTHERS: ASSESSMENT & PLAN 1. CAD history of stent in 2007 [facility] 2. History of brain aneurysm s/p craniotomy in 2000 3. HTN 4. Fibromyalgia 5. RA 6. COPD 7. Lung cancer 8. History of tracheostomy due to severe tooth infection 9. Tobacco habituation -The patient is a 64-year-old female who presents to the cardiology office for follow up. She reports that she had stents placed in [facility] in 2007. She had a recent echocar diogram which demonstrated normal left ventricular function, she had moderate concentric LVH with grade 1 diastolic dysfunction. She also underwent a nuclear stress test which was neg ative for infarct or ischemia.9 At this time, no further cardiac work-up is indicated prior to elective gallbladder surgery. -Continue aspirin 81 mg by mouth daily Continue amlodipine 5 mg by mouth daily Continue atorvastatin 20 mg by mouth daily Continue metoprolol succinate 50 mg by mouth daily Continue lisinopril/hydrochlorothiazide 20/12.5 mg by mouth daily Follow up in 12 months Thank you for allowing me to participate in the care of this patient. Primary Care Physician: MD Ana Snow, DO 02/16/2020 documented in this enco unter Plan of Treatment +--------+---------+ + + + | Date | Type | Specialty | Care Team | Description | +--------+---------+ + + + | 06/10/ | Office | Pulmonology | [facility], | | | 2019 | Visit | | Kayy Boyd, | | | | | | MD [address] | | | | | | [place], | | | | | | [place] [address] | | | | | | [phone] | | | | | | | | +--------+---------+ + + + documented as of this encounter Visit Diagnoses + + | Diagnosis | + + | Coronary artery disease involving [place] coronary artery of [place] heart without | | angina pectoris | + + | Hypertension, unspecified type | + + | Tobacco abuse Tobacco use disorder | + + documented in this encounter
--- OUTSIDE RECORDS SUMMARY | ~2020-03-27 | XMS | Encounter Summary ---
Demographics + + + | Address | [address] | | | [place] [address] | + + + | Home Phone | | + + + | Preferred Language | Unknown | + + + | Marital Status | Single | + + + | Zoroastrianism Affiliation | Unknown | + + + | Race | Unknown | + + + | Ethnic Group | Unknown | + + + Author + + + | Author | [facility] | | | and [place] | + + + | Organization | [facility] | | | and [place] | [...] Team Providers + +------+ + | Care Home Designer Name | Role | Phone | + +------+ + | Ruben An | PCP | | + +------+ + Encounter Details +--------+ + + + + | Date | Type | Department | Care Team | Description | +--------+ + + + + | 11/25/ | Hospital | [facility] | Georgiana Rivera, | | | 2019 | Encounter | [facility] [place] | [address] | | | | | [address] | [place], | | | | | [facility] | [place] [address] | | | | | [address] | [phone] | | | | | [phone] | | | +--------+ + + + + Social History + +-------+ +--------+------+ | Tobacco Use | Types | Packs/Day | Years | Date | | | | | Used | | + +-------+ +--------+------+ | Current Every Day | | 1 | | | | Smoker | | [...] + + documented as of this encounter Medications at Time of Discharge + + + +---------+ + + | Medication | Sig | Dispensed | Refills | Start | End Date | | | | | | Date | | + + + +---------+ + + | ACETAMINOPHEN | | | 0 | 07/23/20 | | | EXTRA STRENGTH 500 | | | | 19 | | | MG tablet | | | | | | + + + +---------+ + + | albuterol 90 | Inhale 2 puffs into | | 0 | 09/20/19 | | | mcg/puff inhaler | the lungs every 4 | | | 20 | | | | hours as needed. | | | | | + + + +---------+ + + | amLODIPine | Take 5 mg by mouth | | 0 | 10/15/19 | | | (NORVASC) 5 mg | Daily. | | | 20 | | | tablet | | | | | | + + + +---------+ + + | atorvaSTATin | Take 20 mg by mouth | | 0 | 10/25/19 | | | (LIPITOR) 20 mg | nightly. | | | 20 | | | tablet | | | | | | + + + +---------+ + + | DULoxetine | Daily. | | 0 | 11/04/19 | | | (IRENKA) [address] | | | | 20 | | | capsule | | | | | | + + + +---------+ + + | | Daily. | | 0 | 10/06/19 | | | lisinopril-hydrochlo | | | | 20 | | | rothiazide | | | | | | | (PRINZIDE,ZESTORETIC | | | | | | | ) 20-12.5 MG per | | | | | | | tablet | | | | | | + + + +---------+ + + | methocarbamol | every 8 hours as | | 0 | 09/22/19 | | | (ROBAXIN) 750 mg | needed. | | | 20 | | | tablet | | | | | | + + + +---------+ + + | metoprolol | Daily. | | 0 | 11/04/19 | | | succinate | | | | 20 | | | (TOPROL-XL) 50 mg 24 | | | | | | | hr tablet | | | | | | + + + +---------+ + + | omeprazole | Take 20 mg by mouth | | 0 | 11/04/19 | | | (PRILOSEC) 20 mg | 2 times daily. | | | 20 | | | capsule | | | | | | + + + +---------+ + + | docusate sodium | Take 1-2 capsules by | 60 | 0 | 11/27/19 | | | (COLACE) 100 mg | mouth Twice daily | capsule | | 20 | 0 | | capsule | as needed for | | | | | | | Constipation. | | | | | + + + +---------+ + + | oxyCODONE | Take 1 tablet by | 40 | 0 | 11/27/19 | | | (ROXICODONE) 5 mg | mouth every 4 hours | tablet | | 20 | 0 | | tablet | as needed for Pain. | | | | | + + + +---------+ + + | senna (SENOKOT) | Take 2 tablets by | 14 | 0 | 11/27/19 | | | 8.6 mg tablet | mouth nightly as | tablet | | 20 | 0 | | | needed for | | | | | | | Constipation. | | | | | + + + +---------+ + + | tiotropium | Inhale contents of | 30 | 0 | 11/12/19 | | | (SPIRIVA HANDIHALER) | one capsule once | capsule | | 20 | 0 | | 18 mcg inhalation | daily (do not | | | | | | capsuleIndications: | swallow capsules) | | | | | | Chronic obstructive | | | | | | | pulmonary disease, | | | | | | | unspecified COPD | | | | | | | type (HCC) | | | | | | + + + +---------+ + + documented as of this encounter [...] [place], | | | | | | [place] [address] | | | | | | [phone] | | | | | | | | +--------+---------+ + + + documented as of this encounter Procedures + +--------+ + + + | Procedure Name | Priori | Date/Time | Associated Diagnosis | Comments | | | ty | | | | + +--------+ + + + | XR CHEST EXPIRATION | Routin | 11/26/2019 | | Results for this | | ONLY | e | 9:17 AM | | procedure are in the | | | | PDT | | results section. | + +--------+ + + + documented in this encounter Results XR Chest Expiration Only (11/26/2019 9:17 AM PDT) + + | Specimen | + + | | + + + + + | Impressions | Performed At | + + + | Stable right apical pneumothorax. Signed by: Phan | [facility] | | Dax Link Sign Date/Time: 11/26/2019 9:21 AM | | + + + + + + | Narrative | Performed At | + + + | CHEST INSPIRATION OR EXPIRATION ONLY CLINICAL INFORMATION: | [facility] | | Post right sided lung biopsy. COMPARISON: PET CT SKULL BASE TO | | | MID THIGH (11/18/2019); XR CHEST PA AND LATERAL (11/12/2019); | | | FINDINGS: There is a small apical pneumothorax status post lung | | | biopsy appears grossly similar to the pneumothorax seen immediately | | | following biopsy. | | + + + + + | Procedure Note | + + | Antoine, Rad Results In - 11/26/2019 9:25 AM PDT | | CHEST INSPIRATION OR EXPIRATION ONLY | | | | CLINICAL INFORMATION: | | Post right sided lung biopsy. | | | | COMPARISON: | | PET CT SKULL BASE TO MID THIGH (11/18/2019); XR CHEST PA AND LATERAL | | (11/12/2019); | | | | FINDINGS: | | There is a small apical pneumothorax status post lung biopsy appears | | grossly similar to the pneumothorax seen immediately following biopsy. | | | | IMPRESSION: | | Stable right apical pneumothorax. | | | | | | | | Signed by: Fariba Chisholm Richard | | Sign Date/Time: 11/26/2019 9:21 AM | + + + +---------+ + + | Performing | Address | City/State/Zipcode | Phone Number | | Organization | | | | + +---------+ + + | [facility] | | | | + +---------+ + + documented in this encounter Visit Diagnoses Not on filedocumented in this encounter"
--- OUTSIDE RECORDS SUMMARY | ~2020-03-27 | XMS | Encounter Summary ---
Demographics + + + | Address | [address] | | | [place] [address] | + + + | Home Phone | | + + + | Preferred Language | Unknown | + + + | Marital Status | Single | + + + | Judaism Affiliation | Unknown | + + + | Race | Unknown | + + + | Ethnic Group | Unknown | + + + Author + + + | Author | [facility] | | | and [place] | + + + | Organization | [facility] | | | and [place] [...] Team Providers + +------+ + | Care Nail Maker Name | Role | Phone | + [...] n not | | | Chronic | [place] | [facility] | | Required | | | obstructive | MD Deb | [address] | | | | | pulmonary | [address] | | | | | disease, | [address] | [place], [place] | | | | | unspecified | [place] | [address] | | | | | COPD type | [place] | Phone: | | | | | ([facility]) | [phone] | [phone] | | | | | Procedures | Phone: | Fax: | | | | | Pulmonary | [phone] | [phone] | | | | | function | Fax: | | | | | | test | [phone] | | + +--------+ + + + [...] | | | | | (shortness | [address] | [address] | | | | | of breath) | Gaye Rodas | [address] | | | | | RIGGS (dyspnea | [place] | [place] | | | | | on | [place] | [place] | | | | | exertion) | [address] | [address] Phone: | | | | | | Phone: | [phone] | | | | | | [phone] | Fax: | | | | | | Fax: | [phone] | | | | | | [phone] | | +--------+--------+ + + + + Encounter Details +--------+ + + + + | Date | Type | Department | Care Team | Description | +--------+ + + + + | 02/11/ | Virtual | [facility] | Bassam, | Chronic obstructive | | 2019 | Office | PULMONOLOGY [address] | Kayy Boyd, | pulmonary disease, | | | Visit | [place]ON [place]ALLARD[place] | MD [address] | unspecified COPD | | | | [place] | [place], | type (HCC) (Primary | | | | [address] | [place] [address] | Dx); Adenocarcinoma, | | | | [phone] | [phone] | lung, right (HCC); | | | | | | Chronic respiratory | | | | | | failure with hypoxia | | | | | | ([facility]); Personal | | | | | | [...] secure 256-bit AES encrypted bidirectional video se [employer]. Service was provided [id number] with the patient via interactive videoconferencing Video start time 1035 Video end time 1050 Total time (in minutes) including non [id number]-to-zxrm time (reviewing records, documentation, etc..) 30 You have chosen to receive care through the use of telemedicine. Telemedicine enables [facility] providers at different locations to provide [...] the chest soon. She gets care from [facility] through Dr Huber and Dr Bernal. 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 She used to live in [place]. She [...] GUIDED BIOPSY LUNG OR MEDIASTINUM - Location: [facility] CT TRACHEOSTOMY CLOSURE VAGINA SURGERY Objective There [...] Banegas MD Pulmonary and Critical Care Medicine [facility] [address] [facility] [place] [address] documente d in this encounter Miscellaneous Notes [...] | | | | | | [place] [address] | | | | | | [phone] | | | | | | | [...]
--- OUTSIDE RECORDS SUMMARY | ~2020-03-27 | XMS | Encounter Summary ---
Demographics + + + | Address | [address] | | | [place] [address] | + + + | Home Phone | | + + + | Preferred Language | Unknown | + + + | Marital Status | Single | + + + | Sikhism Affiliation | Unknown | + + + | Race | Unknown | + + + | Ethnic Group | Unknown | + + + Author + + + | Author | [facility] | | | and [place] | + + + | Organization | [facility] | | | and [place] [...] Team Providers + +------+ + | Care Basin Finish Operator Tig Welder Name | Role | Phone | + +------+ + | Johnny Anguiano MD | PCP | | + +------+ + Reason for Visit + +--------+ + | Reason | Onset | Comments | | | Date | | + +--------+ + | Referral | 12/22/ | | | | 2020 | | + +--------+ + Encounter Details +--------+ + + + + | Date | Type | Department | Care Team | Description | +--------+ + + + + | 12/22/ | Telephone | [facility] | Clayton Howard DO | Referral | | 2020 | | NEUROSURGERY [address] | [address] | | | | | [address] | [address] | | | | | [place], [place] | [place] [address] | | | | | [address] | [phone] | | | | | [phone] | | | +--------+ + + + [...] + + documented as of this encounter Miscellaneous Notes Telephone Encounter - Mystery Mir Caceres - 12/23/2019 11:22 AM PDTDelma Tammi back to get her scheduled elephone Encounter - Myron Jeff - 12/23/2019 9:46 AM Niclole, is calling regarding Referr al and would like a call back. Additional Call Details: Calling to schedule from Referral. Can be reached at Home Number listed in Chart. If this is a symptom based call, was patient offered triage? Not Applicable If this is a symptom based call and you were unable to immediately transfer the call to a tameka tang senior solutions consultant was caller made aware that if at any time she feels it is an emergency they sh ould call 911 or go to the nearest emergency room? not applicable documented in this encounter Plan of Treatment +--------+---------+ + + + | Date | Type | Specialty | Care Team | Description | +--------+---------+ + + + | 06/10/ | Office | Pulmonology | [facility], | | | 2019 | Visit | | Kayy Boyd, | | | | | | MD [address] | | | | | | [place], | | | | | | [place] [address] | | | | | | [phone] | | | | | | | | +--------+---------+ + + + documented as of this encounter Visit Diagnoses Not on filedocumented in this encounter"
--- OUTSIDE RECORDS SUMMARY | ~2020-03-27 | XMS | Encounter Summary ---
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 Name | Role | Phone | + [...] + +--------+ + + + + | Pending | | | Diagnoses | Anita | [facility] | | Review | | | Frontal | DO Clayton | [facility] | | | | | skull lesion | [address] | | | | | Procedures | [facility] | [address] | | | | | CT Head w | [address]IVE [address] | [place], [place] | | | | | wo Contrast | B | [address] | | | | | | [place], | Phone: | | | | | | [place] [address] | [phone] | | | | | | Phone: | Fax: | | | | | | [phone] | [phone] | | | | | | Fax: | | | | | | | [phone] | | + +--------+ + + + + Reason for Visit Evaluate & Treat (Routine) + +--------+ + + + + | Status | Reason | Specialty | Diagnoses / | Referred By | Referred To | | | | | Procedures | Contact | Contact | + +--------+ + + + + | Authorized | | Neurosurgery | Diagnoses | | [facility] | | | | | Malignant | [facility], | Neurosurgery | | | | | neoplasm of | Titi Adam, | [address] | | | | | unspecified | MD [address] | [address] | | | | | part of | [place], | [address] | | | | | right | [address] | [place] | | | | | bronchus or | [place], | [address] | | | | | lung (HCC) | [place] [address] | Phone: | | | | | | | [phone] | | | | | | | Fax: | | | | | | | [phone] | + +--------+ + + + + Encounter Details +--------+ + + + + | Date | Type | Department | Care Team | Description | +--------+ + + + + | 01/04/ | Virtual | [facility] | Clayton Howard DO | Frontal skull lesion | | 2020 | Office | NEUROSURGERY [address] | (Primary Dx) | | | Visit | [address] | [address] | | | | | [place] | [facility] [address] | | | | | [address] | [phone] | | | | | | | | +--------+ + [...] documented as of this encounter Progress Notes Clayton Howard, - 01/05/2020 3:00 PM PDT Neurosurgery Clinic Note [facility] Provider: Clayton Howard DO Date : 01/05/2020 3:21 PM Referring Provider: Titi Vegas, * You have chosen to receive care through the use of telemedicine. Telemedicine enables [facility] care providers at different locations to provide safe, effective and convenient care throu gh the use of technology. As with any health care service, there are risks associated with t he use of telemedicine, including equipment failure, poor image resolution and information s ecurity issues. Patient was asked Do you understand the risks and benefits of telemedicine as I have explained them to you? "Yes" Have your questions regarding telemedicine been answered? "Yes" Patient is currently at home Do you consent to the use of telemedicine in your medical care today? Yes. Last question, I need to confirm where are you physically located right now? Answer: Patient confirms they are located in a state where [place]ayton DO am license d. This exam was initially conducted via a secure 256-bit AES encrypted bidirectional video se ssion. Patient ID 01/05/2020: Tammi Laura is a 64 y.o. female [facility] of newly diagnosed [facility] cancer with metastatic work-up including a CT of the h ead showed an incidental finding of right frontal sinus lesion with erosion of the inner tab le of the without cortical effacement patient with history of right A-comm aneurysm clipping long in the past was told that she is unable to receive MRIs. Patient status post oncologi c therapy with Dr. Vegas and radiation therapy with Dr. Huber Review of Systems: Pertinent items are noted in HPI and if available I personally reviewed independently patient self documented review of systems provided with patient questionnaire filled out in clinic and to be added to patient chart, patient asked if any other symptoms. All other systems are reviewed and are negative Past Medical History: Diagnosis Date Arthritis COPD (chronic obstructive pulmonary disease) (HCC) Coronary artery disease Fibromyalgia Hypertension No Known Allergies Past Surgical History: Procedure Laterality Date BRAIN ANEURYSM SURGERY CERVICAL SPINE SURGERY CORONARY ANGIOPLASTY WITH STENT PLACEMENT CRANIECTOMY HYSTERECTOMY LUNG BIOPSY 11/26/2019 Procedure: CT GUIDED BIOPSY LUNG OR MEDIASTINUM - Location: [facility] CT TRACHEOSTOMY CLOSURE VAGINA SURGERY No family history on file. Vitals 11/27/2019 11/27/2019 SYSTOLIC 144 125 DIASTOLIC 84 73 Pulse 63 65 Temp 98.5 98.4 Resp 20 16 Weight - - Height - - SPO2 95 88 BMI - - Social History Socioeconomic History Marital status: Single [...] Smoking status: Current Every Day Smoker Packs/day: 1.00 Smokeless tobacco: Never Used Substance and Sexual Activity Alcohol use: Never Frequency: Never Drug use: Never Sexual activity: Not on file Lifestyle Physical activity: Days per week: Not on file Minutes per session: Not on file Stress: Not on file Relationships Social connections: Talks on phone: Not on file Gets together: Not on file Attends jew service: Not on file Active member of [...] file Social History Narrative Not on file Objective PHYSICAL EXAM General: appears well on video chat Skin:Skin color, texture, turgor normal. No rashes or lesions see on exposed skin. HEENT: Normocephalic atraumatic Chest:Normal symmetric respiratory effort Muscle Strength: Right Left Upper Extremity: Observed patient able to lift arm against gravity Observed patient able to lift arm against gravity Muscle tone: normal Neuro: Eyes: No gross abnormalities, PERRLA, EOMI, sclera normal Lab Results Component Value Date/Time WBC 9.27 11/27/2019 05:38 AM RBC 4.05 11/27/2019 05:38 AM HGB 13.2 11/27/2019 05:38 AM HCT 39.4 11/27/2019 05:38 AM PLT 230 11/27/2019 05:38 AM Lab Results Component Value Date/Time NA 138 11/27/2019 05:38 AM K 3.5 11/27/2019 05:38 AM CL 102 11/27/2019 05:38 AM CO2 30 11/27/2019 05:38 AM BUN 10 11/27/2019 05:38 AM Medications: Current Outpatient Medications: ACETAMINOPHEN EXTRA STRENGTH 500 MG tablet, , Disp: , Rfl: albuterol 90 mcg/puff inhaler, Inhale 2 puffs into the lungs every 4 hours as needed., Disp: , Rfl: amLODIPine (NORVASC) 5 mg tablet, Take 5 mg by mouth Daily., Disp: , Rfl: atorvaSTATin (LIPITOR) 20 mg tablet, Take 20 mg by mouth nightly., Disp: , Rfl: docusate sodium (COLACE) 100 mg capsule, Take 1-2 capsules by mouth Twice daily as ne eded for Constipation., Disp: 60 capsule, Rfl: 0 DULoxetine (IRENKA) [address] capsule, Daily., Disp: , Rfl: lisinopril-hydrochlorothiazide (PRINZIDE,ZESTORETIC) 20-12.5 MG per tablet, Daily., Di sp: , Rfl: methocarbamol (ROBAXIN) 750 mg tablet, every 8 hours as needed., Disp: , Rfl: metoprolol succinate (TOPROL-XL) 50 mg 24 hr tablet, Daily., Disp: , Rfl: omeprazole (PRILOSEC) 20 mg capsule, Daily., Disp: , Rfl: oxyCODONE (ROXICODONE) 5 mg tablet, Take 1 tablet by mouth every 4 hours as needed for Pain., Disp: 40 tablet, Rfl: 0 senna (SENOKOT) 8.6 mg tablet, Take 2 tablets by mouth nightly as needed for Constipat ion., Disp: 14 tablet, Rfl: tiotropium (SPIRIVA HANDIHALER) 18 mcg inhalation capsule, inhale contents of 1 capsul e by mouth once daily (DO NOT SWALLOW), Disp: 30 capsule, Rfl: 3 Imaging: Internal Imaging Recent XRay Results: Xr Chest Inspiration And Expiration Result Date: 11/27/2019 Status post removal of right-sided pigtail catheter with small right apical pneumothorax, s lightly increased in volume since the catheter was removed. Signed by: Fariba Du Joel Sig n Date/Time: 11/27/2019 6:17 PM Xr Chest Inspiration And Expiration Result Date: 11/27/2019 Stable tiny apical pneumothorax status post clamping trial. Signed by: Fariba Chisholm, [address] rd Sign Date/Time: 11/27/2019 1:54 PM Xr Chest Inspiration And Expiration Result Date: 11/27/2019 Small right apical pneumothorax, slightly increased in size since the previous examination. Signed by: Fariba Leonardo, Josh Sign Date/Time: 11/27/2019 11:36 AM Xr Chest Inspiration And Expiration Result Date: 11/27/2019 1. There is a right-sided pigtail chest tube which terminates over the medial lower hemitho rax. 2. There is mild medial bibasilar atelectasis, unchanged. 3. Cardiomediastinal contours are stable. 4. Small right apical pneumothorax. This measures 8 mm from the apical chest w all. This previously measured 3.7 cm from the apical chest wall. Signed by: Fariba Salazar Paula Sign Date/Time: 11/27/2019 7:20 AM Xr Chest Inspiration And Expiration Result Date: 11/26/2019 Slight increased size of the right pneumothorax status post lung biopsy. Signed by: Fariba Chisholm Richard Sign Date/Time: 11/26/2019 10:48 AM Xr Chest Pa And Lateral Result Date: 11/12/2019 Rounded masslike density in the right perihilar region further evaluation with CT scan clive mmended Signed by: Fariba Reece Dwane Sign Date/Time: 11/12/2019 1:29 PM Xr Chest Expiration Only Result Date: 11/26/2019 Increasing right pneumothorax status post lung biopsy. Signed by: Fariba Chisholm Richard Si gn Date/Time: 11/26/2019 12:41 PM Xr Chest Expiration Only Result Date: 11/26/2019 Stable right apical pneumothorax. Signed by: Fariba Chisholm Richard Sign Date/Time: 020 9:[address] Guided Biopsy Lung Or Mediastinum Result Date: 11/26/2019 Successful right lung nodule biopsy. Signed by: Fariba Chisholm Richard Sign Date/Time: 11/15 4:[address] Guided Chest Tube Placement Result Date: 11/26/[address]-guided 10 Armenian right chest tube placement. Signed by: Fariba Chisholm Ric hard Sign Date/Time: 11/26/2019 4:[address] Skull Base To Mid Thigh Result Date: 11/18/2019 Summary of Target Lesions: 1. Lobulated spiculated mass in the posterolateral right lower l obe 80 measuring 2.3 x 1.9 cm, SUV 11.5. 2. Posterior right upper lobe nodule 4/52 measuri ng 4 mm, SUV 1.0. 3. Anterior right upper lobe nodule 4/62 measuring 5 mm, SUV 1.4. Other PE T/CT Findings: 1. A few presumed blebs in the bilateral upper lobes. See above. 2. Hysterec severino. Comments: 1. Right lower lobe pulmonary mass with uptake, probably due to primary lung malignancy, with multiple small bilateral pulmonary nodules with faint uptake. I cannot ex clude metastatic disease. 2. Mild uptake in both hilar regions, probably physiologic. Signed by: Fariba Taylor Shawn Sign Date/Time: 11/18/2019 3:55 PM Assessment Orders placed this Encounter: No orders of the defined types were placed in this encounter. Patient's Medications New Prescriptions No medications on file Modified Medications No medications on file Discontinued Medications No medications on file Assessment and Plan: Tammi Laura is a 64 y.o. 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 Patient has a history of surgical intervention on this region with a common aneurysm clipping with appr oach from the right side The encounter diagnosis was Frontal skull lesion. Plan : 1. Paradoxical skull lesion does not fully appear likely metastatic disease may be more con sistent with postoperative scar changes loculated frontal sinus inclusion, meningioma, or le ss likely metastatic disease 2. At this time will defer to Dr. Huber currently whether this patient should be radiated bu t it may be reasonable to follow with repeat CT imaging in approximately 3 months with and w ithout contrast at [facility] to see if this lesion is enlarged at all as this may repr esent a benign process 3. Appreciate being involved in this patient's care at this time do not feel that surgical intervention is fully necessary. Should this mass enlarge in any way it may consider radiati on therapy prior to surgical resection although if some cortical effacement orrapid change d espite radiation may consider eyebrow approach for craniotomy and removal of mass 4. All questions answered for the patient Return in about 3 months (around 04/05/2020) for For CT review and potential phone discussi on. It is a pleasure being involved in this patients care should any questions or concerns emily lissa feel free to contact me at any time. Service was provided [id number] with the patient via interactive videoconferencing Total time (in minutes) 20 Clayton Howard D.O Board Certified Neurosurgeon / Chief of Neurosurgery [facility] Parts of this document have been created with voice recognition software. Although I have p roofread the note, embossing press operator errors may still exist. documented in this enc ounter Plan of Treatment +--------+---------+ + + + [...] [place], | | | | | | [place] [address] | | | | | | [phone] | | | | | | | | +--------+---------+ + + + + +---------+--------+ + + | Name | Type | Priori | Associated Diagnoses | Order Schedule | | | | ty | | | + +---------+--------+ + + | CT Head w wo | Imaging | Routin | Frontal skull | Expected: | | Contrast | | e | lesion | 04/05/2020, Expires: | | | | | | 04/05/2021 | + +---------+--------+ + + documented as of this encounter Visit Diagnoses + + | Diagnosis | + + | Frontal skull lesion - Primary Disorder of bone and cartilage, unspecified | + + documented in this encounter
--- OUTSIDE RECORDS SUMMARY | ~2020-03-27 | XMS | Encounter Summary ---
Demographics + + + | Address | [address] | | | [place] [address] | + + + | Home Phone | | + + + | Preferred Language | Unknown | + + + | Marital Status | Single | + + + | Tenriism Affiliation | Unknown | + + + | Race | Unknown | + + + | Ethnic Group | Unknown | + + + Author + + + | Author | [facility] | | | and [place] | + + + | Organization | [facility] | | | and [place] | [...] Team Providers + +------+ + | Care Trials Manager Name | Role | Phone | + +------+ + | Ruben An | PCP | | + +------+ + Reason for Referral Diagnostic/Screening (Emergency) +--------+--------+ + + + + | Status | Reason | Specialty | Diagnoses / | Referred By | Referred To | | | | | Procedures | Contact | Contact | +--------+--------+ + + + + | Closed | | Radiology | Diagnoses | Bassam, | [facility] | | | | | Incidental | Kayy | Nuclear | | | | | pulmonary | MD Deb | Medicine 945 | | | | | nodule, | 1100 | [address] | | | | | greater than | [address] | [address] | | | | | or equal to | [address] | [place] | | | | | 8mm | [place] | [address] | | | | | Procedures | [address] | Phone: | | | | | PET CT Skull | Phone: | [phone] | | | | | Base To Mid | [phone] | Fax: | | | | | Thigh | Fax: | [phone] | | | | | | [phone] | | +--------+--------+ + + + + Diagnostic/Screening (Emergency) +--------+--------+ + + + + | Status | Reason | Specialty | Diagnoses / | Referred By | Referred To | | | | | Procedures | Contact | Contact | +--------+--------+ + + + + | Closed | | Radiology | Diagnoses | Bassam, | [facility] [address] | | | | | Incidental | Kayy | [address] | | | | | pulmonary | MD Deb | [place] | | | | | nodule, | 1100 | [address] | | | | | greater than | [address] [place] | Phone: | | | | | or equal to | [address] | [phone] | | | | | 8mm | [place] | Fax: | | | | | Procedures | [address] | [phone] | | | | | CT Guided | Phone: | | | | | | Biopsy Lung | [phone] | | | | | | Or | Fax: | | | | | | Mediastinum | [phone] | | +--------+--------+ + + + + Reason for Visit +---------+--------+ + | Reason | Onset | Comments | | | Date | | +---------+--------+ + | Results | 11/14/ | | | | 2020 | | +---------+--------+ + Encounter Details +--------+ + + + + | Date | Type | Department | Care Team | Description | +--------+ + + + + | 11/14/ | Telephone | [facility] | Bassam, | Results | | 2019 | | PULMONOLOGY [address] | Kayy Boyd, | | | | | [address] | [address] | | | | | [place] | [address] [place], | | | | | [address] | [place] [address] | | | | | [phone] | [phone] | | | | | | | [...] this encounter Miscellaneous Notes Telephone Encounter - Kayy Banegas MD - 11/14/2019 2:[address] of the chest of Ms Yougn. This shows a large RLL nodule, suspicious for malignancy. I have spoken to her about necessity of getting a CT guided biopsy and PET CT done. She und erstands, and I will order this today. She will be out of town for a few days next week, but will certainly be available to get these procedures done after that. Kayy Banegas MD Pulmonary and Critical Care Medicine [facility] [address] [facility] , [place] [address] documente d in this encounter Plan of Treatment +--------+---------+ + + + | Date | Type | Specialty | Care Team | Description | +--------+---------+ + + + | 06/10/ | Office | Pulmonology | [facility], | | | 2019 | Visit | | Kayy Boyd, | | | | | | [address] | | | | | | [address], | | | | | | [place] [address] | | | | | | [phone] | | | | | | | | +--------+---------+ + + + documented as of this encounter Results CT Guided Biopsy Lung Or Mediastinum (11/26/2019 9:11 AM PDT) + + | Specimen | + + | | + + + + + | Impressions | Performed At | + + + | Successful right lung nodule biopsy. Signed by: Phan | [facility] | | Dax Link Date/Time: 11/26/2019 4:56 PM | | + + + + + + | Narrative | Performed At | + + + | CT GUIDED RIGHT LUNG MASS BIOPSY CLINICAL INFORMATION: Large | [facility] | | 2 cm x 2 cm Right lower lung nodule, suspicious for lung cancer in | | | this patient who is an active smoker COMPARISON: PET CT SKULL | | | BASE TO MID THIGH (11/18/2019); XR CHEST PA AND LATERAL (11/12/2019); CT | | | GUIDED CHEST TUBE PLACEMENT (11/26/2019); PROCEDURE: The risks, | | | benefits and alternatives were discussed with the patient; consent | | | was obtained and placed in the patient's chart. The risks included | | | but were not limited to bleeding, infection, non-diagnostic sample | | | and pneumothorax. The patient was placed in the CT scanner and | | | imaging was obtained through the chest. A reproducible target was | | | demonstrated. The skin overlying the lung mass was localized and | | | marked. The skin was sterilely prepped and draped in the usual | | | fashion. Local lidocaine was administered in the skin and underlying | | | tissues, and a tiny dermatotomy was made. Under CT guidance, a 20 | | | gauge coaxial needle system was used to obtain 5 core biopsies of the | | | target lesion. Samples were placed in formalin and sent to pathology | | | for evaluation. The patient tolerated the procedure well without | | | complication. Conscious sedation was administered. The nurse | | | administered 2 mg Versed and 100 mcg fentanyl during the examination | | | and monitored blood pressure, heart rate, and pulse oximeter. | | | Physician intraservice time of 30 minutes. At least one of the | | | following CT dose optimization techniques were used: Automated | | | exposure control; Adjustment of mA and/or kV according to patient | | | size; Use of iterative reconstruction technique. FINDINGS: | | | Spiculated peripheral mass in the right lower lobe. Images taken | | | during biopsy showed a needle position at the edge of the mass. Post | | | biopsy images show a small pneumothorax on and expected parenchymal | | | hemorrhage. | | + + + + + | Procedure Note | + + | Antoine, Rad Results In - 11/26/2019 4:59 PM PDT | | CT GUIDED RIGHT LUNG MASS BIOPSY | | | | CLINICAL INFORMATION: | | Large 2 cm x 2 cm Right lower lung nodule, suspicious for lung cancer | | in this patient who is an active smoker | | | | COMPARISON: | | PET CT SKULL BASE TO MID THIGH (11/18/2019); XR CHEST PA AND LATERAL | | (11/12/2019); CT GUIDED CHEST TUBE PLACEMENT (11/26/2019); | | | | PROCEDURE: | | The risks, benefits and alternatives were discussed with the patient; | | consent was obtained and placed in the patient's chart. The risks | | included but were not limited to bleeding, infection, non-diagnostic | | sample and pneumothorax. | | | | The patient was placed in the CT scanner and imaging was obtained | | through the chest. A reproducible target was demonstrated. The skin | | overlying the lung mass was localized and marked. The skin was | | sterilely prepped and draped in the usual fashion. Local lidocaine was | | administered in the skin and underlying tissues, and a tiny dermatotomy | | was made. Under CT guidance, a 20 gauge coaxial needle system was used | | to obtain 5 core biopsies of the target lesion. Samples were placed in | | formalin and sent to pathology for evaluation. The patient tolerated | | the procedure well without complication. | | | | Conscious sedation was administered. The nurse administered 2 mg | | Versed and 100 mcg fentanyl during the examination and monitored blood | | pressure, heart rate, and pulse oximeter. Physician intraservice time | | of 30 minutes. | | | | At least one of the following CT dose optimization techniques were | | used: Automated exposure control; Adjustment of mA and/or kV according | | to patient size; Use of iterative reconstruction technique. | | | | FINDINGS: | | Spiculated peripheral mass in the right lower lobe. Images taken | | during biopsy showed a needle position at the edge of the mass. Post | | biopsy images show a small pneumothorax on and expected parenchymal | | hemorrhage. | | | | IMPRESSION: | | Successful right lung nodule biopsy. | | | | | | | | Signed by: Fariba Chisholm Richard | | Sign Date/Time: 11/26/2019 4:56 PM | + + + +---------+ + + | Performing | Address | City/State/Zipcode | Phone Number | | Organization | | | | + +---------+ + + | [facility] | | | | + +---------+ + + PET CT Skull Base To Mid Thigh (11/18/2019 3:16 PM PST) + + | Specimen | + + | | + + + + + | Impressions | Performed At | + + + | Summary of Target Lesions: 1. Lobulated spiculated mass in the | [facility] | | posterolateral right lower lobe 4/80 measuring 2.3 x 1.9 cm, SUV | | | 11.5. 2. Posterior right upper lobe nodule 4/52 measuring 4 mm, SUV | | | 1.0. 3. Anterior right upper lobe nodule 4/62 measuring 5 mm, SUV | | | 1.4. Other PET/CT Findings: 1. A few presumed blebs in the | | | bilateral upper lobes. See above. 2. Hysterectomy. Comments: | | | 1. Right lower lobe pulmonary mass with uptake, probably due to | | | primary lung malignancy, with multiple small bilateral pulmonary | | | nodules with faint uptake. I cannot exclude metastatic disease. 2. | | | Mild uptake in both hilar regions, probably physiologic. | | | Signed by: Fariba Taylor, Mason Sign Date/Time: 11/18/2019 3:55 PM | | | | | + + + + + + | Narrative | Performed At | + + + | EXAM DESCRIPTION PET/CT REGISTRY SKULL TO MID THIGH CLINICAL | [facility] | | INFORMATION: Right lower lung nodule suspicious for malignancy, note | | | evidence of metastatic disease. Initial PET Scan | | | COMPARISON: XR CHEST PA AND LATERAL (11/12/2019); PROCEDURE: The | | | patient was evaluated with a dedicated PET/CT scanner. Upon arrival, | | | the patient's fasting fingerstick blood glucose level was 86 mg/dL. | | | 13.9 mCi of 18-FDG was injected IV at 1331 hours, and 62 minutes | | | post-injection CT attenuation-correction images and then subsequent | | | PET images (attenuation-corrected and emission-only images) were | | | obtained from base of skull to thigh. PET, noncontrast-attenuation | | | CT, and fused PET/CT images were then reformatted and reviewed in the | | | axial, sagittal, coronal and 3-D maximum intensity projection planes. | | | FINDINGS: HEAD: Brain: The distribution of FDG activity in the | | | visualized brain is physiologic. Paranasal Sinuses: No significant | | | abnormalities to the extent seen. NECK: Neck: The distribution of | | | FDG activity in the neck is physiologic. Thyroid: Physiologic | | | distribution of FDG activity in the thyroid gland. No abnormal focal | | | or diffuse increased activity. CHEST: Lungs, Pleura and Airways: | | | Lobulated spiculated mass in the posterolateral right lower lobe 80 | | | measuring 2.3 x 1.9 cm, SUV 11.5. Smaller pulmonary nodules as | | | follows: 1. Posterior right upper lobe /52 measuring 4 mm, SUV 1.0. | | | 2. Posterior left upper lobe near the major fissure 57 measuring 3 | | | mm, no uptake. 3. Anterior right upper lobe /62 measuring 5 mm, SUV | | | 1.4. 4. Posterolateral right upper lobe 68 measuring 4 mm, no | | | uptake. 5. Posterolateral right upper lobe 8 x 6 mm cavitary lucency | | | with a slightly irregular wall 66, probably due to bleb, no uptake. | | | 6. Multiloculated bleb posterior left upper lobe 62 measuring 11 x | | | 8 mm, no uptake. Mediastinum: No significant pericardial, great | | | vessel, or esophageal abnormality. No mediastinal mass. Lymph | | | Nodes: Right precarinal lymph node 4/63 measuring 12 x 6 mm, SUV 3.2. | | | Two areas of uptake in the upper posterior and central right hilum | | | without CT findings, SUV up to 3.7, compared with SUV up to 3.7 | | | throughout the left hilum. ABDOMEN: Liver and Biliary: No biliary | | | abnormality. No abnormal metabolic activity in the liver. Pancreas, | | | Spleen and Adrenals: No abnormal metabolic activity in the pancreas, | | | spleen,or adrenal glands. Kidneys: No hydronephrosis or calculus. | | | ABDOMEN AND PELVIS: Bowel: No small bowel or colonic dilatation. | | | Physiologic metabolic activity present in bowel loops. Vessels: No | | | aneurysm. Lymph Nodes: No pathologically enlarged or FDG-avid lymph | | | nodes. Peritoneum and Retroperitoneum: No intraperitoneal free air, | | | ascites or peritoneal mass. No significant retroperitoneal | | | abnormality. PELVIS: Genitourinary: No hydroureter. No ureteral | | | or bladder calculus. Hysterectomy. Body Wall: No masses, hernias, or | | | hemorrhage. Bones: No acute fracture or vertebral end plate | | | destruction. No lytic or blastic lesion. | | + + + + + | Procedure Note | + + | Antoine, Rad Results In - 11/18/2019 3:58 PM PST EXAM DESCRIPTION | | PET/CT REGISTRY SKULL TO MID THIGH | | | | CLINICAL INFORMATION: | | Right lower lung nodule suspicious for malignancy, note evidence of | | metastatic disease. Initial PET Scan | | | | | | | | | | COMPARISON: | | XR CHEST PA AND LATERAL (11/12/2019); | | | | PROCEDURE: | | The patient was evaluated with a dedicated PET/CT scanner. Upon | | arrival, the patient's fasting fingerstick blood glucose level was 86 | | mg/dL. 13.9 mCi of 18-FDG was injected IV at 1331 hours, and 62 | | minutes post-injection CT attenuation-correction images and then | | subsequent PET images (attenuation-corrected and emission-only images) | | were obtained from base of skull to thigh. PET, noncontrast-attenuation | | CT, and fused PET/CT images were then reformatted and reviewed in the | | axial, sagittal, coronal and 3-D maximum intensity projection planes. | | | | FINDINGS: | | HEAD: | | Brain: The distribution of FDG activity in the visualized brain is | | physiologic. | | Paranasal Sinuses: No significant abnormalities to the extent seen. | | | | NECK: | | Neck: The distribution of FDG activity in the neck is physiologic. | | Thyroid: Physiologic distribution of FDG activity in the thyroid gland. | | No abnormal focal or diffuse increased activity. | | | | CHEST: | | Lungs, Pleura and Airways: | | Lobulated spiculated mass in the posterolateral right lower lobe 4/80 | | measuring 2.3 x 1.9 cm, SUV 11.5. | | Smaller pulmonary nodules as follows: | | 1. Posterior right upper lobe 4/52 measuring 4 mm, SUV 1.0. | | 2. Posterior left upper lobe near the major fissure 4/57 measuring 3 | | mm, no uptake. | | 3. Anterior right upper lobe 4/62 measuring 5 mm, SUV 1.4. | | 4. Posterolateral right upper lobe 4/68 measuring 4 mm, no uptake. | | 5. Posterolateral right upper lobe 8 x 6 mm cavitary lucency with a | | slightly irregular wall 4/66, probably due to bleb, no uptake. | | 6. Multiloculated bleb posterior left upper lobe 4/62 measuring 11 x 8 | | mm, no uptake. | | | | Mediastinum: No significant pericardial, great vessel, or esophageal | | abnormality. No mediastinal mass. | | Lymph Nodes: Right precarinal lymph node 4/63 measuring 12 x 6 mm, SUV | | 3.2. | | Two areas of uptake in the upper posterior and central right hilum | | without CT findings, SUV up to 3.7, compared with SUV up to 3.7 | | throughout the left hilum. | | | | ABDOMEN: | | Liver and Biliary: No biliary abnormality. No abnormal metabolic | | activity in the liver. | | Pancreas, Spleen and Adrenals: No abnormal metabolic activity in the | | pancreas, spleen,or adrenal glands. | | Kidneys: No hydronephrosis or calculus. | | | | ABDOMEN AND PELVIS: | | Bowel: No small bowel or colonic dilatation. Physiologic metabolic | | activity present in bowel loops. | | Vessels: No aneurysm. | | Lymph Nodes: No pathologically enlarged or FDG-avid lymph nodes. | | Peritoneum and Retroperitoneum: No intraperitoneal free air, ascites or | | peritoneal mass. No significant retroperitoneal abnormality. | | | | PELVIS: | | Genitourinary: No hydroureter. No ureteral or bladder calculus. | | Hysterectomy. | | Body Wall: No masses, hernias, or hemorrhage. | | Bones: No acute fracture or vertebral end plate destruction. No lytic | | or blastic lesion. | | | | IMPRESSION: | | Summary of Target Lesions: | | 1. Lobulated spiculated mass in the posterolateral right lower lobe | | 80 measuring 2.3 x 1.9 cm, SUV 11.5. | | 2. Posterior right upper lobe nodule 4/52 measuring 4 mm, SUV 1.0. | | 3. Anterior right upper lobe nodule 4/62 measuring 5 mm, SUV 1.4. | | | | | | Other PET/CT Findings: | | 1. A few presumed blebs in the bilateral upper lobes. See above. | | 2. Hysterectomy. | | | | | | Comments: | | 1. Right lower lobe pulmonary mass with uptake, probably due to primary | | lung malignancy, with multiple small bilateral pulmonary nodules with | | faint uptake. I cannot exclude metastatic disease. | | 2. Mild uptake in both hilar regions, probably physiologic. | | | | | | | | | | | | Signed by: Fariba Taylor Shawn | | Sign Date/Time: 11/18/2019 3:55 PM | + + + +---------+ + + | Performing | Address | City/State/Zipcode | Phone Number | | Organization | | | | + +---------+ + + | [facility] | | | | + +---------+ + + documented in this encounter Visit Diagnoses + + | Diagnosis | + + | Incidental pulmonary nodule, greater than or equal to 8mm - Primary Solitary | | pulmonary nodule | + + documented in this encounter"
--- OUTSIDE RECORDS SUMMARY | ~2020-03-27 | XMS | Encounter Summary ---
Demographics + + + | Address | [address] | | | [place] [address] | + + + | Home Phone | | + + + | Preferred Language | Unknown | + + + | Marital Status | Single | + + + | Episcopalian Affiliation | Unknown | + + + | Race | Unknown | + + + | Ethnic Group | Unknown | + + + Author + + + | Author | [facility] | | | and [place] | + + + | Organization | [facility] | | | and [place] [...] Team Providers + +------+ + | Care Property Insurance Claims Examiner Name | Role | Phone | + [...] | | 8mm | [place] | [address] | | | | | Procedures | [id number] | Phone: | | | | | PET CT Skull | Phone: | [phone] | | | | | Base To Mid | [phone] | Fax: | | | | | Thigh | Fax: | [phone] | | | | | | [phone] | | +--------+--------+ + + + + [...] | | | nodule, | 1100 | [address] | | | | | greater than | [address] | Phone: | | | | | or equal to | [address] | [phone] | | | | | 8mm | [place] | Fax: | | | | | Procedures | [address] | [phone] | | | | | CT Guided | Phone: | | | | | | Biopsy Lung | [phone] | | | | | | Or | Fax: | | | | | | Mediastinum | [phone] | | +--------+--------+ + + + + [...] + + | 11/14/ | Telephone | [facility] | Bassam, | Results | | 2019 | | PULMONOLOGY [address] | Kayy Boyd, | | | | | [address] | [address] | | | | | [place] | [place], | | | | | [address] | [place] [address] | | | | | [phone] | [phone] | | | | | | | [...] PSTReviewed CT of the chest of Ms Young. This shows a large RLL nodule, suspicious [...] Banegas MD Pulmonary and Critical Care Medicine [facility] [address] [facility] , [place] [address] documente d in this encounter Plan of Treatment +--------+---------+ + + + | Date | Type | Specialty | Care Team | Description | +--------+---------+ + + + | 06/10/ | Office | Pulmonology | [facility], | | | 2019 | Visit | | Kayy Boyd, | | | | | | [address] | | | | | | [place], | | | | | | [place] [address] | | | | | | [phone] | | | | | | | [...]
--- OUTSIDE RECORDS SUMMARY | ~2020-03-27 | XMS | Encounter Summary ---
Demographics + + + | Address | [address] | | | [place] [address] | + + + | Home Phone | | + + + | Preferred Language | Unknown | + + + | Marital Status | Single | + + + | Yarsani Affiliation | Unknown | + + + | Race | Unknown | + + + | Ethnic Group | Unknown | + + + Author + + + | Author | [facility] | | | and [place] | + + + | Organization | [facility] | | | and [place] [...] Team Providers + +------+ + | Care Japanese Professor Name | Role | Phone | + +------+ + | Ruben An | PCP | | + +------+ + Reason for Visit +--------+--------+ + | Reason | Onset | Comments | | | Date | | +--------+--------+ + | DME | 12/03/ | [facility] oxygen | | | 2020 | | +--------+--------+ + Encounter Details +--------+ + + + + | Date | Type | Department | Care Team | Description | +--------+ + + + + | 12/03/ | Telephone | [facility] | Linda Wray | DME (N oxygen ) | | 2020 | | [address] | T, RN | | | | | [place], [place] | | | | | | [address] | | | | | | [phone] | | | +--------+ + + + [...] this encounter Miscellaneous Notes Telephone Encounter - Linda Wray RN - 12/04/2019 9:02 AM PDTFaxed completed [facility] f or oxygen DOS 11/27/19, faxed back to [facility] for processing. documented in this encounter Plan of Treatment [...] | | | | | | [place] [id number] | | | | | | [phone] | | | | | | | | +--------+---------+ + + + documented as of this encounter Visit Diagnoses Not on filedocumented in this encounter"
--- OUTSIDE RECORDS SUMMARY | ~2020-03-27 | XMS | Encounter Summary ---
Demographics + + + | Address | [address] | | | [place] [address] | + + + | Home Phone | | + + + | Preferred Language | Unknown | + + + | Marital Status | Single | + + + | Hoahaoism Affiliation | Unknown | + + + | Race | Unknown | + + + | Ethnic Group | Unknown | + + + Author + + + | Author | [facility] | | | and [place] | + + + | Organization | [facility] | | | and [place] | [...] Team Providers + +------+ + | Care Kitchen Utility Associate Name | Role | Phone | + +------+ + | Ruben An | PCP | | + +------+ + Encounter Details +--------+ + + + + | Date | Type | Department | Care Team | Description | +--------+ + + + + | 11/12/ | Documentati | [facility] | Brigitte Márquez RN | | | 2020 | on | PULMONOLOGY [address] | | | | | | [address] | | | | | | [place] | | | | | | [address] | | | | | | [phone] | | | +--------+ + + + [...] | | | | | | [place] [address] | | | | | | [phone] | | | | | | | | +--------+---------+ + + + documented as of this encounter Visit Diagnoses Not on filedocumented in this encounter"
--- OUTSIDE RECORDS SUMMARY | ~2020-03-27 | XMS | Encounter Summary ---
Demographics + + + | Address | [address] | | | [place] [address] | + + + | Home Phone | | + + + | Preferred Language | Unknown | + + + | Marital Status | Single | + + + | Quaker Affiliation | Unknown | + + + | Race | Unknown | + + + | Ethnic Group | Unknown | + + + Author + + + | Author | [facility] | | | and [place] | + + + | Organization | [facility] | | | and [place] | [...] Team Providers + +------+ + | Care Medical Office Technologist Name | Role | Phone | + +------+ + | Ruben An | PCP | | + +------+ + Reason for Referral Evaluate & Treat (Urgent) +--------+ + + + + + | Status | Reason | Specialty | Diagnoses / | Referred By | Referred To | | | | | Procedures | Contact | Contact | +--------+ + + + + + | Closed | Specialty | Medical | Diagnoses | [facility], | | | | Services | Oncology | | Kayy | [facility], | | | Required | | Adenocarcino | MD Deb | Titi Adam MD | | | | | ma, lung, | [address] | | | | | right ([facility]) | [address] | [address] [place], | | | | | | [address] | [address] | | | | | | [place] | [place] | | | | | | [address] | [address] | | | | | | Phone: | | | | | | | [phone] | | | | | | | Fax: | | | | | | | [phone] | | +--------+ + + + + + Reason for Visit + +--------+ + | Reason | Onset | Comments | | | Date | | + +--------+ + | Results, Pathology | 11/26/ | | | | 2019 | | + +--------+ + Encounter Details +--------+ + + + + | Date | Type | Department | Care Team | Description | +--------+ + + + + | 11/26/ | Telephone | [facility] | Bassam, | Results, Pathology | | 2020 | | PULMONOLOGY [address] | Kayy Boyd, | | | | | [address] | MD [address] | | | | | [facility] [place] | [address] [place], | | | | | [address] | [place] [address] | | | | | [phone] | | | | | | | [...] Telephone Encounter - Kayy Banegas MD - 11/27/2019 4:21 PM Char del angel informed me that pathology of lung biopsy is consistent with Adenocarcinoma. Will await of ficial path to get into [facility], but I will refer her to Oncology urgently. She prefers to stay in [place], and so I will refer to Dr Vegas. Kayy Banegas MD Pulmonary and Critical Care Medicine [facility] [address], [place] [address] documente d in this encounter Plan of Treatment +--------+---------+ + + + | Date | Type | Specialty | Care Team | Description | +--------+---------+ + + + | 06/10/ | Office | Pulmonology | [facility], | | | 2020 | Visit | | Kayy Boyd, | | | | | | MD [address] | | | | | | [place], | | | | | | [place] [address] | | | | | | [phone] | | | | | | | | +--------+---------+ + + + + + +--------+ + + | Name | Type | Priori | Associated Diagnoses | Order Schedule | | | | ty | | | + + +--------+ + + | Ambulatory referral | Outpatient | Routin | Adenocarcinoma, | Ordered: 11/27/2019 | | to Hematology / | Referral | e | lung, right (HCC) | | | Oncology | | | | | + + +--------+ + + documented as of this encounter Visit Diagnoses + + | Diagnosis | + + | Adenocarcinoma, lung, right (HCC) - Primary | + + documented in this encounter"
--- OUTSIDE RECORDS SUMMARY | ~2020-03-27 | XMS | Encounter Summary ---
Demographics + + + | Address | [address] | | | [place] [address] | + + + | Home Phone | | + + + | Preferred Language | Unknown | + + + | Marital Status | Single | + + + | Orthodox Affiliation | Unknown | + + + | Race | Unknown | + + + | Ethnic Group | Unknown | + + + Author + + + | Author | [facility] | | | and [place] | + + + | Organization | [facility] | | | and [place] [...] Team Providers + +------+ + | Care Sales Special Agent Name | Role | Phone | + +------+ + | Ruben An | PCP | | + +------+ + Reason for Visit +--------+--------+ + | Reason | Onset | Comments | | | Date | | +--------+--------+ + | DME | 12/02/ | CM[facility] oxygen | | | 2020 | | +--------+--------+ + Encounter Details +--------+ + + + + | Date | Type | Department | Care Team | Description | +--------+ + + + + | 12/02/ | Telephone | [facility] | Linda Wray | DME ([facility] oxygen) | | 2019 | | [address] | T, RN | | | | | [place], [place] | | | | | | [address] | | | | | | [phone] | | | +--------+ + + + [...] Telephone Encounter - Linda Wray RN - 12/03/2019 3:46 PM PDTReceived a CMN from [facility] for [facility] 11/27/19. Sent to the provider to review and sign. documented in this encounter Plan of Treatment [...] | | | | | | [place] [address] | | | | | | [phone] | | | | | | | | +--------+---------+ + + + documented as of this encounter Visit Diagnoses Not on filedocumented in this encounter"
--- OUTSIDE RECORDS SUMMARY | ~2020-03-27 | XMS | Encounter Summary ---
Demographics + + + | Address | [address] | | | [place] [address] | + + + | Home Phone | | + + + | Preferred Language | Unknown | + + + | Marital Status | Single | + + + | Temple Affiliation | Unknown | + + + | Race | Unknown | + + + | Ethnic Group | Unknown | + + + Author + + + | Author | [facility] | | | and [place] | + + + | Organization | [facility] | | | and [place] [...] Team Providers + +------+ + | Care Lock Plater Name | Role | Phone | + +------+ + | Ruben An | PCP | | + +------+ + Encounter Details +--------+ + + + + | Date | Type | Department | Care Team | Description | +--------+ + + + + | 11/12/ | Hospital | [facility] | Bassam, | Chronic obstructive | | 2020 | Encounter | [facility] | Kayy Boyd, | pulmonary disease, | | | | [address] | [address] | unspecified COPD | | | | [address] | [address] [place], | type (HCC) | | | | [address] | [place] [address] | | | | | [phone] | | | | | | | [...] | | | | | | type ([facility]) | | | | | | + [...] | | | | | | [place] [address] | | | | | | [phone] | | | | | | | | +--------+---------+ + + + documented as of this encounter Procedures + +--------+ + + + | Procedure Name | Priori | Date/Time | Associated Diagnosis | Comments | | | ty | | | | + +--------+ + + + | XR CHEST PA AND | Routin | 11/12/2019 | Chronic | Results for this | | LATERAL | e | 12:17 PM | obstructive | procedure are in the | | | | PST | pulmonary disease, | results section. | | | | | unspecified COPD | | | | | | type (HCC) | | + +--------+ + + + documented in this encounter Results XR Chest PA and Lateral (11/12/2019 12:17 PM PST) + + | Specimen | + + | | + + + + + | Impressions | Performed At | + + + | Rounded masslike density in the right perihilar region further | [facility] | | evaluation with CT scan recommended Signed by: Chevy, | | | Roe Link Sign Date/Time: 11/12/2019 1:29 PM | | + + + + + + | Narrative | Performed At | + + + | CHEST PA AND LATERAL CLINICAL INFORMATION: COPD | [facility] | | COMPARISON: None FINDINGS: Cardiac size and contour is normal. | | | Lungs are expanded no pneumothorax or significant effusion. | | | Rounded masslike density in the right perihilar region further | | | evaluation with CT scan is recommended. Osseous structures are | | | grossly normal. | | + + + + + | Procedure Note | + + | Jake Schultz Results In 11/12/2019 1:32 PM PST | | CHEST PA AND LATERAL | | | | CLINICAL INFORMATION: | | COPD | | | | COMPARISON: | | None | | | | FINDINGS: | | Cardiac size and contour is normal. Lungs are expanded no pneumothorax | | or significant effusion. | | Rounded masslike density in the right perihilar region further | | evaluation with CT scan is recommended. | | Osseous structures are grossly normal. | | | | IMPRESSION: | | Rounded masslike density in the right perihilar region further | | evaluation with CT scan recommended | | | | | | | | Signed by: Fariba Reece, Roe | | Sign Date/Time: 11/12/2019 1:29 PM | + + + +---------+ + + | Performing | Address | City/State/Zipcode | Phone Number | | Organization | | | | + +---------+ + + | [facility] | | | | + +---------+ + + documented in this encounter Visit Diagnoses + + | Diagnosis | + + | Chronic obstructive pulmonary disease, unspecified COPD type (HCC) | + + documented in this encounter"
--- OUTSIDE RECORDS SUMMARY | ~2020-03-27 | XMS | Encounter Summary ---
Demographics + + + | Address | [address] | | | [place] [address] | + + + | Home Phone | | + + + | Preferred Language | Unknown | + + + | Marital Status | Single | + + + | Episcopalian Affiliation | Unknown | + + + | Race | Unknown | + + + | Ethnic Group | Unknown | + + + Author + + + | Author | [facility] | | | and [place] | + + + | Organization | [facility] | | | and [...] Team Providers + +------+ + | Care Costume Seamstress Name | Role | Phone | + [...] ST | | | | | right ([facility]) | [address] | [place] [place], | | | | | | [address] | [address] | | | | | | [place] | [place] | | | | | | [address] | [address] | | | | | | Phone: | | | | | | | [phone] | | | | | | | Fax: | | | | | | | [phone] | | +--------+ + + + + [...] + + | 11/26/ | Telephone | [facility] | [facility], | Results, Pathology | | 2020 | | PULMONOLOGY [address] | Kayy Boyd, | | | | | [address] | MD [address] | | | | | [facility] [place] | [address], | | | | | [address] | [place] [address] | | | | | [phone] | | | | | | | [...] this encounter Miscellaneous Notes Telephone Encounter - aKyy Banegas MD - 11/27/2019 4:21 PM Char del angel informed me that pathology of lung biopsy is consistent with Adenocarcinoma. Will await of ficial path to get into [facility], but I will refer her to Oncology urgently. She prefers to stay in [place], and so I will refer to Dr Vegas. Kayy Banegas MD Pulmonary and Critical Care Medicine [facility] [address], [place] [address] documente d in this encounter Plan of [...] [place], | | | | | | [place] [address] | | | | | | [phone] | | | | | | | [...]
--- OUTSIDE RECORDS SUMMARY | ~2020-03-27 | XMS | Encounter Summary ---
Demographics + + + | Address | [address] | | | [place] [address] | + + + | Home Phone | | + + + | Preferred Language | Unknown | + + + | Marital Status | Single | + + + | Holiness Affiliation | Unknown | + + + | Race | Unknown | + + + | Ethnic Group | Unknown | + + + Author + + + | Author | [facility] | | | and [place] | + + + | Organization | [facility] | | | and [...] Team Providers + +------+ + | Care Geological Technical Officer Name | Role | Phone | + +------+ + | Ruben An | PCP | | + +------+ + Encounter Details +--------+ + + + + | Date | Type | Department | Care Team | Description | +--------+ + + + + | 11/14/ | Documentati | [facility] | Brigitte Márquez RN | | | 2020 | on | PULMONOLOGY [address] | | | | | | [address] | | | | | | [place] | | | | | | [address] | | | | | | [phone] | | | +--------+ + + + [...] encounter Progress Notes Brigitte Márquez RN - 11/14/2019 11:47 AM [facility]. Received report for this scan. documented in this encounter Plan of Treatment +--------+---------+ + + + | Date | Type | Specialty | Care Team | Description | +--------+---------+ + + + | 06/10/ | Office | Pulmonology | [facility], | | 2019 | Visit | | Kayy Boyd, | | | | | | MD [address] | | | | | | [place], | | | | | | [place] [address] | | | | | | [phone] | | | | | | | | +--------+---------+ + + + documented as of this encounter Visit Diagnoses Not on filedocumented in this encounter"
--- OUTSIDE RECORDS SUMMARY | ~2020-03-27 | XMS | Encounter Summary ---
Demographics + + + | Address | [address] | | | [place] [address] | + + + | Home Phone | | + + + | Preferred Language | Unknown | + + + | Marital Status | Single | + + + | Jew Affiliation | Unknown | + + + | Race | Unknown | + + + | Ethnic Group | Unknown | + + + Author + + + | Author | [facility] | | | and [place] | + + + | Organization | [facility] | | | and [place] [...] Team Providers + +------+ + | Care Ribbon Lap Machine Tender Name | Role | Phone | + [...] | Radiology | Diagnoses | Bassam, | [facility] [address] | | | | | Incidental | Kayy | [address] | | | | | pulmonary | MD Deb | YANI COSTELLO | | | | | nodule, | 1100 | [address] | | | | | greater than | JASON ARROYO | Phone: | | | | | or equal to | ДМИТРИЙ E | [phone] | | | | | 8mm | [place], [place] | Fax: | | | | | Procedures | [address] | [phone] | | | | | CT Guided | Phone: | | | | | | Biopsy Lung | [phone] | | | | | | Or | Fax: | | | | | | Mediastinum | [phone] | | +--------+--------+ + + + + Reason for Visit Auth/Cert +--------+--------+ + + + + | Status | Reason | Specialty | Diagnoses / | Referred By | Referred To | | | | | Procedures | Contact | Contact | +--------+--------+ + + + + | | | | Diagnoses | | | | | | | Incidental | | | | | | | pulmonary | | | | | | | nodule, | | | | | | | greater than | | | | | | | or equal to | | | | | | | 8mm | | | | | | | Procedures | | | | | | | CT GUIDED | | | | | | | BIOPSY LUNG | | | | | | | OR | | | | | | | MEDIASTINUM | | | +--------+--------+ + + + + Encounter Details +--------+ + + + + | Date | Type | Department | Care Team | Description | +--------+ + + + + | 11/25/ | Hospital | [facility] | Bassam, | Incidental pulmonary | | 2020 - | Encounter | [facility] | Kayy Deb, | nodule, greater | | | | CARE FLOOR [address] | MD [address] | than or equal to | | 11/26/ | | [address] | ДМИТРИЙ COSTELLO, | 8mm; Postprocedural | | 2019 | | [place], [place] | [place] [address] | pneumothorax; | | | | [address] | [phone] | Essential | | | | [phone] | | hypertension; | | | | | Dax Chisholm | Chronic obstructive | | | | | MD Sonali [address] | pulmonary disease, | | | | | JSAON GALLARDO | unspecified COPD | | | | | [place] [address] | type (HCC) | | | | | [phone] | | | | | | | | | | | | Severo Erickson, | | | | | | [address] [facility] | | | | | | [place] [address] | | | | | | [phone] | | | | | | | | | | | | Dax Smith MD | | | | | | [address] | | | | | | [place] [address] | | | | | | [phone] | | | | | | | | | | | | 2, [facility] | | | | | | Radiologist, [facility] [address] | | +--------+ + + + + [...] + + + | Blood Pressure | 125/73 | 11/27/2019 3:45 PM | | | | | PDT | | + + + + + | Pulse | 65 | 11/27/2019 3:45 PM | | | [...] + + + | Oxygen Saturation | 88% | 11/27/2019 3:45 PM | | | | | PDT | | + + + + + | Inhaled Oxygen | - | - | | | Concentration | | | | + + + + + | Weight | 59 kg (130 lb) | 11/26/2019 7:28 AM | | | | | PDT | | + + + + + | Height | 162.6 cm (5' 4") | 11/26/2019 7:28 AM | | | | | PDT | | + + + + + | Body Mass Index | 22.31 | 11/26/2019 7:28 AM | | | | | PDT | | + + + + + documented in this encounter Discharge Summaries Dax Smith MD - 11/27/2019 2:20 PM PDT Patient: Tammi Laura : 1955 Date of Admission: 11/26/2019 Date of Discharge: 11/27/2019 Treatment Team: Dax Chisholm MD; BHARATH Abdalla Discharging Provider: Dax Pearl Ma, MD Discharge Diagnoses: Active Problems: Incidental pulmonary nodule, greater than or equal to 8mm Resolved Problems: * No resolved hospital problems. * The patient is a 64 y.o. female with significant past medical history of CAD post PCI, hist ory of tracheostomy due to a severe tooth infection, history of RA, COPD who was seen by Dr. Banegas in Pulmonary Clinic about 3 weeks ago for exertional dyspnea and CT scan was p erformed given the patient's ongoing smoking. CT showed lung nodule and Dr. Covington perform ed CT-guided biopsy today. Post-procedure, the patient complained of right-sided chest pain radiating to the neck, was found to have a small pneumothorax. The patient was admitted fo r observation. Procedures Performed: . Chief Complaint: No chief complaint on file. Hospital Course: Pneumothorax: Pt with hx of COPD and tracheostomy follow by Dr. Banegas from pulmonary. Pt found on scr eening CT to have incidental pulmonary nodule - pneumothorax due to CT guided maira biopsy on admission -Chest tube placed, IR service on 11/25 --> removed on 11/26 and repeat CXR showed improved v kanchan small pneumothorax - prn oxycodone and IV dilaudid for pain during hospitalization, upon discharge pt given sc ript for prn oxycodone, pt advised to take bowel meds to prevent constipation -results of path showed Well to moderately differentiated adenocarcinoma of lung CAD: - s/p PCI in 2007 at hospital in [facility], 2 stents placed - home meds continued - metoprolol, statin, ASA COPD: - home inhalers continued - prn nebs -prior to discharge pt needed O2 and had a sat of 84% ambulating on RA and this went up to 90% on 3L -pt sent home with Home O2 HTN: - home meds - amlodipine, lisinopril Continued all home meds upon discharge GI Pending elective lap donte and hernia repair as outpatient Pt currently asymptomatic Med surg bundle DVT prophylaxis: lovenox Code status: Full Med rec:done with pt on 11/27/19 Family Contact:Chente Mann [phone], updated on 11/27/19 Something about patient:pt lives with son, pt from , she has 3 kids, she i s retired, 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 If there are any questions regarding this patients care please feel free to call me on my cell at , [facility] medicine Discharge Exam and Data: Vital Signs: BP 125/73 | Pulse 65 | Temp 36.9 C (98.4 F) (Oral) | Resp 16 | Ht 1.626 m (5' 4") | Wt 59 kg (130 lb) | SpO2 (!) 88% | BMI 22.31 kg/m Physical Exam Vitals signs reviewed. Constitutional: Appearance: Normal appearance. HENT: Head: Normocephalic and atraumatic. Nose: Nose normal. Mouth/Throat: Mouth: Mucous membranes are moist. Eyes: Pupils: Pupils are equal, round, and reactive to light. Neck: Musculoskeletal: Normal range of motion and neck supple. Cardiovascular: Rate and Rhythm: Normal rate and regular rhythm. Pulses: Normal pulses. Heart sounds: Normal heart sounds. Pulmonary: Effort: Pulmonary effort is normal. Breath sounds: Normal breath sounds. Abdominal: General: Abdomen is flat. Palpations: Abdomen is soft. Musculoskeletal: Normal range of motion. Skin: General: Skin is warm and dry. Neurological: General: No focal deficit present. Mental Status: She is alert and oriented to person, place, and time. Psychiatric: Mood and Affect: Mood normal. Behavior: Behavior normal. Recent Labs BMP 138 102 10 177* 3.5 30 0.63 CaMgPhos 8.7 LFT CBC 9.27 13.2 230 39.4 Coag 1.0 Last labs from current encounter as of 11/27/19-17:20 Recent Radiology Results Results Reviewed. Outstanding Issues: Unresulted Labs and Imaging (From admission, onward) Ordered XR Chest Inspiration and Expiration 1 TIME IMAGING Status: In process 11/27/19 1521 Surgical Pathology Exam ONE TIME Status: Collected (11/26/19 1316) 11/26/19 1024 None Discharge Information: Follow up: No follow-up provider specified. Current active diet order is: Diet Diet consistent carb; Effective Now Discharge Medications New Medications Details docusate sodium 100 mg capsule Take 1-2 capsules by mouth Twice daily as needed for Constipation. aka: COLACE oxyCODONE 5 mg tablet Take 1 tablet by mouth every 4 hours as needed for Pain. aka: ROXICODONE senna 8.6 mg tablet Take 2 tablets by mouth nightly as needed for Constipation. aka: SENOKOT Unchanged Medications Details ACETAMINOPHEN EXTRA STRENGTH 500 mg tablet Generic drug: acetaminophen albuterol 90 mcg/puff inhaler Inhale 2 puffs into the lungs every 4 hours as needed. amLODIPine 5 mg tablet Take 5 mg by mouth Daily. aka: NORVASC atorvaSTATin 20 mg tablet Take 20 mg by mouth nightly. aka: LIPITOR DULoxetine [address] capsule Daily. aka: IRENKA lisinopril-hydrochlorothiazide 20-12.5 MG per tablet Daily. aka: PRINZIDE,ZESTORETIC methocarbamol 750 mg tablet every 8 hours as needed. aka: ROBAXIN metoprolol succinate 50 mg 24 hr tablet Daily. aka: TOPROL-XL omeprazole 20 mg capsule Daily. aka: priLOSEC tiotropium 18 mcg inhalation capsule Inhale contents of one capsule once daily (do not swallow capsules) aka: SPIRIVA HANDIHALER . Disposition: home Condition: Good Code Status: Full Code Discharge took 33 minutes, to include final examination, discussion of admission, and prepa ration of prescriptions, instructions for on-going care, follow-up and documentation of disc harge summary. Dax Pearl Ma, MD 5:20 PM 11/27/2019 documented in this enco unter Discharge Instructions Instructions Lita Rodgers RN - 11/27/2019 Chest Tubes Your lungs are each surrounded by two layers of membrane (pleura). The space between the la yers is called the pleural space. Normally the pleural space has a tiny amount of fluid in i t. But extra fluid, blood, pus, or air in the pleural space makes it hard for the lung to ex pand and makes breathing difficult. A chest tube is a soft, flexible tube put into the pleur al space that surrounds the lung. The tube does not go into the lung itself.The tube drain s blood, air, or extra fluid. The tube is inserted through a small cut (incision) in the ski n. Reasons for a chest tube You may need a chest tube: After chest surgery or injury to the chest To treat a lung infection or abscess To remove extra fluid from around the lung from other causes. This might be from cancer or congestive heart failure. To treat collapsed lung To treat bleeding into the chest (hemothorax) Risks and possible complications of chest tubes A chest tube can have some risks. But the benefits of having the tube usually outweigh the risks. Risks of a chest tube include: Air leak Infection Bleeding Reaction to anesthesia used during placement Lung damage Caution! Do not pull on the tube or tip over the drainage container. This can cause serious breathin g problems. If you pull on the tube or tip over the container, tell a nurse right away. You may be asked to exhale fully or take deep breaths while the tubing is checked. Removing the chest tube When the air, blood, pus, or extra fluid is gone from the pleural space, your healthcare pr ovider will removethe tube. This may be done in your hospital bed. You may get more pain m edicine before the tube is removed. As the tube is removed, you may be asked to inhale or ex dimas deeply and then hold your breath. After the tube is removed, the healthcare provider ma y close the incisionwith sutures. Or the incision may be left to close by itself. The prov ider will put abandageover the incision. You may have an X-ray after the tube is removed . This is to make sure your lung is still inflated. Follow-up care After the tube is removed: Follow up with the doctor within 48 hours. You may have another X-ray. This is to check for fluid or air in your lung. The incision will be checked to make sure it is healing. The bandage may be replaced with a smaller adhesive bandage. You may change the adhesive bandage as often as needed. Care for the insertion site(s) as directed. Keep the bandage in place for 48 hours. Keep it dry. Until a scab has formed on the incision site, you may shower but not take a bath. When a scab has formed you no longer need an adhesive bandage. After the incision has healed you m ay have a small scar. When to call the doctor While the tube is in place and after it has been removed, call the doctor (or alert your nu rse) right away if you have any of the following: [id number] (38F)or higher, or as directed by your healthcare provider Trouble breathing Sharp chest pain that may spread to your shoulder or back Bluish color of the skin Weakness, dizziness, or fainting A feeling of anxiety or restlessness Fast pulse Date Last Reviewed: 06/17/201619997892-3529 [employer]. [address] [place] [address], [place] [address]. All righ ts reserved. This information is not intended as a substitute for professional medical care. Always follow your healthcare professional's instructions. Discharge Instructions Needle Biopsy:Lung You had a procedure called a needle biopsy of one of your lungs. In this procedure, a hollo w needle is used to take one or more samples of your lung tissue. The tissue is then examine d under a microscope. There are several different types of needle biopsies. Two types are: Fine needle aspiration. A small amount of tissue is withdrawn (aspirated) using a very f ine needle. Core biopsy. A larger tissue sample is removed for examination. A biopsy needle is inserted through your skin into your chest and lung. This is called a tr ansthoracic approach, which means across or through the chest (thorax). Scans are done at th e same time so that your provider can find the area where he or she would like to sample tis darryl. Needle biopsies do not require cuts or incisions into the body like open biopsies. Your healthcare provider will use the results of your biopsy to help diagnose your conditio n. Home care The site of the biopsy may feel numb for a while if you received numbing medicine. You might have a little soreness following the needle biopsy. Follow your healthcare provider's instructions about removing bandages and showering or bathing. You may be sleepy after the biopsy if you received medicine to help you relax (sedation) . You should not drive until the next day or as instructed by your healthcare provider. You should not do heavy lifting, a lot of stair climbing, or take part in sports the day of your biopsy. You can get back to your regular activities as instructed by your healthcar e provider. Follow-up care Follow up with your healthcare provider, or as advised. Be sure you make an appointment wit h your healthcare provider to discuss the biopsy results. When to seek medical advice Call your healthcare provider right away if any of these occur: Infection. You might have redness, pain, swelling, or drainage at the site of your biops ies. Bleeding. You might also have bleeding at the site of your biopsies. Coughing up blood. This may only be a small amount. Collapsed lung (pneumothorax). This means that air from your lungs leaks out into the sp aces between your lungs and chest wall. It can lead to trouble breathing and a collapsed annmarie g. Watch for trouble breathing, a fast pulse, sharp pains in your chest or shoulder, and lucila meet skin Date Last Reviewed: 10/18/201619990587-4861 [employer]. [address] [place] [address], [place] [address]. All righ ts reserved. This information is not intended as a substitute for professional medical care. Always follow your healthcare professional's instructions. documented in this encounter Medications at Time of Discharge [...] documented as of this encounter Progress Notes Sumeet Barrientos RRT - 11/27/2019 4:38 PM PDTFormatting of this note might be different fr om the original. 11/27/19 1625 Oxygen Therapy Home O2 eval performed? yes Resting on RA (%) 89 Exercising on RA (%) 84 Exercising on O2 (%)(add L/Min in comment) 90 (3 Liters Oxygen) Home Oxygen Interventions ~ Home Oxygen Discharge Study ~ Performed 3 Liters Oxygen needed while ambulating. Electronically signed by Sumeet Barrientos RRT at 0 11/27/2019 4:39 PM Yaima Franklin RN - 11/26/2019 3:[address] Had a [address] guided chest tube that was done by Dr. Chisholm, CT shows right lung reexpanded. Pt. Had moderate sedatio n, given total of 2 mg Versed and 100 mcg Fentanyl ivp. Sat's 82-90%, simple mask but after the chest tube was placed, sat's increased to 90% on 6 litters simple face mask. Pt. Was tra nsfer to room 4464, report given to Mis RAJAN, chest tube connected to suction, dressing dry and intact. oozer, To ryan Hester RN - 11/26/2019 9:31 AM PDTPt. Had a guided CT right lung biopsy that was done by Dr Delphine Chisholm. Pt. Did develop small pneumothorax, chest xray was done prior to pt. Going to [place] [id number]. Pt. C/o of severe right chest pain that radiated into her neck. Pt. Had moderate sed ation, given total of 150 mcg fentanyl and 1 mg versed ivp. Second chest xray has been order ed to be done at 1015. Report at bedside. Electronically signed by Yaima Armstrong RN at 07/2020 9:36 AM PDTdocumented in this encounter H&P Notes Dax Chisholm MD - 11/26/2019 2:45 PM PDTFormatting of this note might be di fferent from the original. The current H&P was reviewed. The patient was reexamined. The patient has PTX after biopsy. Recent Results (from the past 24 hour(s)) Protime INR Result Value Ref Range INR 1.0 CBC no Differential Result Value Ref Range WBC 8.16 3.80 - 11.00 K/uL RBC 4.29 3.70 - 5.10 M/uL Hemoglobin 14.1 11.3 - 15.5 g/dL Hematocrit 41.9 34.0 - 46.0 % MCV 97.7 80.0 - 100.0 fl MCH 32.9 27.0 - 34.0 pg MCHC 33.7 32.0 - 35.5 g/dL RDW-SD 51.8 37 - 53 fl Platelet Count 243 150 - 400 K/uL MPV 9.8 fl Lab Results Component Value Date INR 1.0 11/26/2019 Lab Results Component Value Date PLT 243 11/26/2019 Vitals: 11/26/19 1433 BP: 123/79 Pulse: 64 Resp: 17 Temp: Plan for Sedation: IV Conscious Sedation with Fentanyl and Versed. Moderate Sedation Presedation Assessment completed. The patient was reassessed immediately prior to sedation with no significant clinical ybarra es in the exam, including heart and lungs, since the completion of H&P ASA Classification: ASA 2 - Patient with mild systemic disease with no functional limitati ons Mallampati Classification: Mallampati Class 2 (upper half of tonsil fossa) Consent: Risks, alternatives, and benefits of the procedure were discussed with the patient. Questio ns were answered. Signed and verbal consent were given as witnessed by staff. Assessment and Plan: PTX s/p biopsy. Plan for chest tube. Sarai woodward MD - 11/26/2019 2:15 PM PDTFormatting of this note might be different from the [facility]: Hospitalist Admission History & Physical Date of Admission: 11/26/2019 Requesting Physician: Dr Adria CLARK Reason for Admission: pneumothorax History Obtained From: patient CHIEF COMPLAINT: pneumothorax HISTORY OF PRESENT ILLNESS The patient is a 64 y.o. female with significant past medical history of CAD post PCI, hist ory of tracheostomy due to a severe tooth infection, history of RA, COPD who was seen by Dr. Banegas in Pulmonary Clinic about 3 weeks ago for exertional dyspnea and CT scan was perfo rmed given the patient's ongoing smoking. CT showed lung nodule and Dr. Covington performed C T-guided biopsy today. Post-procedure, the patient complained of right-sided chest pain rad iating to the neck, was found to have a small pneumothorax. The patient was admitted for ob servation. REVIEW OF SYSTEMS Review of Systems Comprehensive 12 system review is negative except as in HPI Past Medical History: Diagnosis Date Arthritis COPD (chronic obstructive pulmonary disease) (HCC) Coronary artery disease Fibromyalgia Hypertension Past Surgical History: Procedure Laterality Date BRAIN ANEURYSM SURGERY CERVICAL SPINE SURGERY CORONARY ANGIOPLASTY WITH STENT PLACEMENT CRANIECTOMY HYSTERECTOMY TRACHEOSTOMY CLOSURE VAGINA SURGERY No Known Allergies Medications Prior to Admission Medication Sig Dispense Refill ACETAMINOPHEN EXTRA STRENGTH 500 MG tablet albuterol 90 mcg/puff inhaler amLODIPine (NORVASC) 5 mg tablet Daily. atorvaSTATin (LIPITOR) 20 mg tablet Daily. DULoxetine (IRENKA) [address] capsule Daily. lisinopril-hydrochlorothiazide (PRINZIDE,ZESTORETIC) 20-12.5 MG per tablet Daily. methocarbamol (ROBAXIN) 750 mg tablet every 8 hours as needed. metoprolol succinate (TOPROL-XL) 50 mg 24 hr tablet Daily. omeprazole (PRILOSEC) 20 mg capsule Daily. tiotropium (SPIRIVA HANDIHALER) 18 mcg inhalation capsule Inhale contents of one capsul e once daily (do not swallow capsules) 30 capsule 0 No family history on file. Social History Socioeconomic History Marital status: Single [...] file Gets together: Not on file Attends adventism service: Not on file Active member of [...] file Social History Narrative Not on file Home meds reviewed - as follows: Prior to Admission medications Medication Sig Start Date End Date Taking? Authorizing Provider ACETAMINOPHEN EXTRA STRENGTH 500 MG tablet 07/23/19 Yes Historical Provider, albuterol 90 mcg/puff inhaler 09/20/19 Yes Historical Provider, amLODIPine (NORVASC) 5 mg tablet Daily. 10/15/19 Yes Historical Provider, atorvaSTATin (LIPITOR) 20 mg tablet Daily. 10/25/19 Yes Historical Provider, DULoxetine (IRENKA) [address] capsule Daily. 11/04/19 Yes Historical Provider, lisinopril-hydrochlorothiazide (PRINZIDE,ZESTORETIC) 20-12.5 MG per tablet Daily. 10/06/19 Yes Historical Provider, methocarbamol (ROBAXIN) 750 mg tablet every 8 hours as needed. 09/22/19 Yes Historical Provi joshMD metoprolol succinate (TOPROL-XL) 50 mg 24 hr tablet Daily. 11/04/19 Yes Historical Provider , omeprazole (PRILOSEC) 20 mg capsule Daily. 11/04/19 Yes Historical Provider, tiotropium (SPIRIVA HANDIHALER) 18 mcg inhalation capsule Inhale contents of one capsule on ce daily (do not swallow capsules) 11/12/19 Kayy Banegas MD PHYSICAL EXAM Vital Signs: BP 123/68 | Pulse 66 | Temp 36.5 C (97.7 F) (Oral) | Resp 18 | Ht 1.626 m (5' 4") | Wt 59 kg (130 lb) | SpO2 95% | BMI 22.31 kg/m Physical Exam Constitutional: No distress. HENT: Mouth/Throat: No oropharyngeal exudate. Eyes: Right eye exhibits no discharge. No scleral icterus. Neck: Neck supple. No JVD present. Cardiovascular: Normal rate. Exam reveals no gallop and no friction rub. Pulmonary/Chest: No respiratory distress. She has no wheezes. Abdominal: She exhibits no distension. There is no abdominal tenderness. Musculoskeletal: General: No edema. Neurological: She is alert. No cranial nerve deficit. Skin: No rash noted. She is not diaphoretic. Nursing note and vitals reviewed. DATA CBC: Lab Results Component Value Date WBC 8.16 11/26/2019 RBC 4.29 11/26/2019 HGB 14.1 11/26/2019 HCT 41.9 11/26/2019 MCV 97.7 11/26/2019 MCH 32.9 11/26/2019 MCHC 33.7 11/26/2019 PLT 243 11/26/2019 MPV 9.8 11/26/2019 CMP: No results found for: NA, K, CL, CO2, ANIONGAP, GLUF, BUN, CREATININE, ALB, GLOB, AGR ATIO, BILITOT, AST, ALT, EGFR BMP: No results found for: NA, K, CL, CO2, ANIONGAP, GLUF, BUN, CREATININE, EGFR PT/INR: Lab Results Component Value Date INR 1.0 11/26/2019 ASSESSMENT & PLAN Pneumothorax: - due to CT guided maira biopsy - spoke and discussed with Dr Covington - Chest tube placed, IR service will manage it. - prn oxycodone and IV dilaudid for pain CAD: - s/p PCI - home meds continued - metoprolol, statin, ASA COPD: - home inhalers continued - prn nebs HTN: - home meds - amlodipine, lisinopril - hydralazine prn Disposition: admitted Code Status: Full Code Primary Care Physician: BHARATH Torres MD 11/26/2019 Marzena Marroquin MD - 11/26/2019 7:00 AM PDTFormatting of this note might be different fro m the original. Vascular & Interventional Radiology Note Patient Name: Tammi Laura Date of : 1955 Requesting Provider: He Banegas* Consulting Provider: Dax Chisholm MD Reason for Referral: Biopsy request for RLL Lung nodule History of Present Illness: Tammi Laura is a 64 y.o. female. I was asked to see Tammi for biopsy of RLL Nodule . Review of Systems: ROS All other systems negative. Past Medical History: Past Medical History: Diagnosis Date Arthritis COPD (chronic obstructive pulmonary disease) (HCC) Coronary artery disease Fibromyalgia Hypertension Physical Examination: Vitals: 11/26/19 0728 BP: 129/84 Pulse: 60 Resp: 16 Temp: 36.7 C (98 F) Physical Exam Plan for Sedation: IV Conscious Sedation with Fentanyl and Versed. Moderate Sedation Presedation Assessment completed. The patient was reassessed immediately prior to sedation with no significant clinical ybarra es in the exam, including heart and lungs, since the completion of H&P ASA Classification: 2 Mallampati Classification: 2 Consent: Risks, alternatives, and benefits of the procedure were discussed with the patient. Questio ns were answered. Signed and verbal consent were given as witnessed by staff. Pre-Procedure Diagnosis: RLL Lung Nodule Procedure to be performed: CT guided biopsy of RLL Lung nodule Assessment and Plan: Tammi Laura is a 64 y.o. female with a RLL Nodule seen on imaging. Request placed f or CT guided biopsy, which will be performed today. Dax Chisholm MD Vascular and Interventional Radiology documented in this encounter Miscellaneous Notes Plan of Lita Marley RN - 11/27/2019 6:57 PM PDTPt left via wheelchair to transpo rt home in private vehicle with son. Pt has all belongings, pt had oxycodone delivered to be dside. Pt has portable oxygen delivered to bedside. All questions and concerns addressed. Pr alice Rodgers RN lan of Lexis Shaver RN - 11/27/2019 3:35 PM [id number]: spoke with Lita RAJAN- pt has not had oxygen eval yet. Spoke with Deysi lr RN and gave her information for In Home Medica l in case pt needs oxygen upon discharge- phone number and fax to send oxygen to.Stefa lly signed by Lexis Archuleta RN at 11/27/2019 3:36 PM PDTPlan of Gertrudis Shaver RN - 11/27/2019 8:06 AM PDTCare Management Initial Assessment Readmission Risk: Medium Pt admitted with RLL lung nodule. She lives at home and is independent with her ADLs. She does not use a walker, cane, oxygen, etc. Status Prior to Admission or Illness Arrival From: admitted as an inpatient, home or self-care Lives With: alone Living Arrangements: house Caregiver For: no one Functional Status: independent. Transportation Available: family or friend will provide Care Management Concerns Readmission Within Last 30 Days: no previous admission in last 30 days PCP: BHARATH Torres Contact Information Family Contact Information: Name: Johnathan . [place] Needs Assessment Current Outpt/Agency/Support Groups: none Services Anticipated at Discharge: none Equipment Used at Home: none Initial Plan Anticipated Discharge Disposition: home Electronically signed: Lexis Archuleta RN 11/27/2019 8:06 AM lan of Catrachita Hugo RN - 11/27/2019 12:31 AM PDT Problem: Adult Inpatient Plan of Care Goal: Plan of Care Review Outcome: Ongoing, progressing Problem: Fall Injury Risk Goal: Absence of Fall and Fall-Related Injury Outcome: Ongoing, progressing Problem: Pain Acute Goal: Optimal Pain Control Outcome: Ongoing, progressing Pt is willing and able to verbalize pain score, pt has PRN pain medication available. Pt is in bed, lowest position, bed alarm is set, call light and table are within reach. lan of Talisha Willis RN - 11/26/2019 5:34 PM PDTPt transferred to [facility], report received from Yaima RAJAN . Pt on 3L oxymask. PRNs for pain given. CT had 40ml output. Chart check complete. Talisha Bauman RN lan of Talisha Calvo RN - 11/26/2019 5:22 PM PDT Problem: Respiratory Compromise Goal: Optimal Oxygenation and Ventilation Outcome: Ongoing, progressing Pt receiving supplemental oxygen PRN. Problem: Pain Acute Goal: Optimal Pain Control Outcome: Ongoing, progressing PRN pain meds given, see MAR. Pt resting comfortably with eyes closed.Electronically shelly d by Talisha Bauman RN at 11/26/2019 5:22 PM PDTOp Note - Dax Chisholm MD - 11/26/2019 2:48 PM PDTInterventional Radiology Post Procedure Note Patient Name: Tammi Laura Date of : 1955 Procedure(s): CT guided chest tube Pre OP Diagnosis: ptx Post OP Diagnosis: same Windows Administrator: Dax Chisholm MD MD Anesthesia Type: moderate sedation Findings: chest tube in position Specimens: none EBL: minimal Complications: None A full report will follow in the imaging section. Dax Chisholm MD MD Interventional Radiologist and Vascular Medicine Specialist lan of Danika Hazel RN - 11/26/2019 2:09 PM PDTPatient transferred to CT at this time. lan of Care - Danika Vargas RN - 11/26/2019 1:06 PM PDTPatient in the CDU s/p right lung biopsy. Pt ar rived to the floor with severe right chest pain that radiates to underneath her right breast , shortness of breath and difficulty taking deep breaths. Pt placed on 4 L 02 nasal cannula and is sating between 93-97%. Repeat xray done at 1200 showed an increasing pneumothorax. Dr Chisholm aware. Patient is currently on 3L o2 and staying at 92% nasal cannula. Pt c/o the right sided ches t pain but is calm and resting in the room with her son. p Note - Dax Chisholm MD - 11/26/2019 7:00 AM PDTInterventional Radiology Post Procedure Note Patient Name: Tammi Laura Date of : 1955 Procedure(s): R lugn biopsy Pre OP Diagnosis: R lung nodule Post OP Diagnosis: Same Windows Administrator: Dax Chisholm MD MD Anesthesia Type: Moderate sedation Findings: RLL Lung nosule Specimens: 5 cores EBL: minimal Complications: None A full report will follow in the imaging section. Dax Chisholm MD MD Interventional Radiologist and Vascular Medicine Specialist documented in this encounter Plan of Treatment [...] [place], | | | | | | [place] [address] | | | | | | [phone] | | | | | | | | +--------+---------+ + + + + + +--------+ + + | Name | Type | Priori | Associated Diagnoses | Order Schedule | | | | ty | | | + + +--------+ + + | Surgical Pathology | Pathology | Routin | | One Time for 1 | | Exam | and | e | | Occurrences starting | | | Cytology | | | 11/26/2019 until | | | | | | 11/26/2019 | + + +--------+ + + | DME: Oxygen Therapy | DME | Routin | Postprocedural | DME 1 Time for 1 | | | | e | pneumothorax | Occurrences starting | | | | | Chronic obstructive | 11/27/2019 until | | | | | pulmonary disease, | 11/27/2019 | | | | | unspecified COPD | | | | | | type (HCC) | | + + +--------+ + + documented as of this encounter Procedures + +--------+ + + + | Procedure Name | Priori | Date/Time | Associated Diagnosis | Comments | | | ty | | | | + +--------+ + + + | XR CHEST INSPIRATION | GORDY | 11/27/2019 | | Results for this | | AND EXPIRATION | | 5:11 PM | | procedure are in the | | | | PDT | | results section. | + +--------+ + + + | PERFORM HOME O2 | Routin | 11/27/2019 | | | | EVALUATION | e | 3:39 PM | | | | | | PDT | | | + +--------+ + + + | XR CHEST INSPIRATION | GORDY | 11/27/2019 | | Results for this | | AND EXPIRATION | | 1:47 PM | | procedure are in the | | | | PDT | | results section. | + +--------+ + + + | XR CHEST INSPIRATION | STAT | 11/27/2019 | | Results for this | | AND EXPIRATION | | 11:12 AM | | procedure are in the | | | | PDT | | results section. | + +--------+ + + + | XR CHEST INSPIRATION | Routin | 11/27/2019 | | Results for this | | AND EXPIRATION | e | 7:17 AM | | procedure are in the | | | | PDT | | results section. | + +--------+ + + + | CBC NO DIFFERENTIAL | Routin | 11/27/2019 | | Results for this | | | e | 5:38 AM | | procedure are in the | | | | PDT | | results section. | + +--------+ + + + | BASIC METABOLIC | STAT | 11/27/2019 | | Results for this | | PANEL | | 5:38 AM | | procedure are in the | | | | PDT | | results section. | + +--------+ + + + | CT GUIDED CHEST TUBE | Routin | 11/26/2019 | | Results for this | | PLACEMENT | e | 3:11 PM | | procedure are in the | | | | PDT | | results section. | + +--------+ + + + | BASIC METABOLIC | STAT | 11/26/2019 | | Results for this | | PANEL | | 3:09 PM | | procedure are in the | | | | PDT | | results section. | + +--------+ + + + | XR CHEST EXPIRATION | STAT | 11/26/2019 | | Results for this | | ONLY | | 12:20 PM | | procedure are in the | | | | PDT | | results section. | + +--------+ + + + | XR CHEST INSPIRATION | Routin | 11/26/2019 | | Results for this | | AND EXPIRATION | e | 10:27 AM | | procedure are in the [...] | + +--------+ + + + | CT GUIDED BIOPSY | STAT | 11/26/2019 | Incidental | Results for this | | LUNG OR MEDIASTINUM | | 9:11 AM | pulmonary nodule, | procedure are in the | | | | PDT | greater than or | results section. | | | | | equal to 8mm | | + +--------+ + + + | SURGICAL PATHOLOGY | Routin | 11/26/2019 | Incidental | Results for this | | EXAM | e | 8:30 AM | pulmonary nodule, | procedure are in the | | | | PDT | greater than or | results section. | | | | | equal to 8mm | | + +--------+ + + + | PROTIME INR | STAT | 11/26/2019 | | Results for this | | | | 7:07 AM | | procedure are in the | | | | PDT | | results section. | + +--------+ + + + | CBC NO DIFFERENTIAL | STAT | 11/26/2019 | | Results for this | | | | 7:07 AM | | procedure are in the | | | | PDT | | results section. | + +--------+ + + + documented in this encounter Results XR Chest Inspiration and Expiration (11/27/2019 5:11 PM PDT) + + | Specimen | + + | | + + + + + | Impressions | Performed At | + + + | Status post removal of right-sided pigtail catheter with small right | [facility] | | apical pneumothorax, slightly increased in volume since the catheter | | | was removed. Signed by: Fariba Du Joel Sign Date/Time: | | | 11/27/2019 6:17 PM | | + + + + + + | Narrative | Performed At | + + + | XR CHEST INSPIRATION AND EXPIRATION CLINICAL INFORMATION: | [facility] | | Pneumothorax status post chest tube removal. COMPARISON: XR CHEST | | | INSPIRATION AND EXPIRATION (11/27/2019); XR CHEST INSPIRATION AND | | | EXPIRATION (11/27/2019); FINDINGS: Interval removal of right-sided | | | pigtail catheter. Small right apical pneumothorax with 2.4 cm of | | | pleural separation, increased since the 11/27/2019 study at 13:27. | | | No mediastinal shift. Stable cardiac size Atelectasis in the | | | left lung base. Expiratory imaging performed with right | | | pneumothorax pleural separation measured at 1.8 cm. | | + + + + + | Procedure Note | + + | Antoine, Rad Results In - 11/27/2019 6:21 PM PDT | | XR CHEST INSPIRATION AND EXPIRATION | | | | CLINICAL INFORMATION: | | Pneumothorax status post chest tube removal. | | | | COMPARISON: | | XR CHEST INSPIRATION AND EXPIRATION (11/27/2019); XR CHEST INSPIRATION | | AND EXPIRATION (11/27/2019); | | | | FINDINGS: | | Interval removal of right-sided pigtail catheter. Small right apical | | pneumothorax with 2.4 cm of pleural separation, increased since the | | 11/27/2019 study at 13:27. No mediastinal shift. Stable cardiac size | | | | Atelectasis in the left lung base. | | | | Expiratory imaging performed with right pneumothorax pleural separation | | measured at 1.8 cm. | | | | IMPRESSION: | | Status post removal of right-sided pigtail catheter with small right | | apical pneumothorax, slightly increased in volume since the catheter | | was removed. | | | | | | | | Signed by: Fariba Du Joel | | Sign Date/Time: 11/27/2019 6:17 PM | + + + +---------+ + + | Performing | Address | City/State/Zipcode | Phone Number | | Organization | | | | + +---------+ + + | [facility] | | | | + +---------+ + + XR Chest Inspiration and Expiration (11/27/2019 1:47 PM PDT) + + | Specimen | + + | | + + + + + | Impressions | Performed At | + + + | Stable tiny apical pneumothorax status post clamping trial. | [facility] | | Signed by: Fariba Chisholm, Dax Sign Date/Time: 11/27/2019 1:54 | | | PM | | + + + + + + | Narrative | Performed At | + + + | XR CHEST INSPIRATION AND EXPIRATION CLINICAL INFORMATION: | [facility] | | Right lung pneumothorax. COMPARISON: XR CHEST INSPIRATION AND | | | EXPIRATION (11/27/2019); XR CHEST INSPIRATION AND EXPIRATION | | | (11/27/2019); CT GUIDED CHEST TUBE PLACEMENT (11/26/2019); FINDINGS: | | | Slight apical pneumothorax stable to possibly slightly decreased in | | | size from the prior study. Pigtail chest tube is in stable | | | position. The cardiac silhouette is stable. | | + + + + + | Procedure Note | + + | Antoine, Rad Results In - 11/27/2019 1:58 PM PDT | | XR CHEST INSPIRATION AND EXPIRATION | | | | CLINICAL INFORMATION: | | Right lung pneumothorax. | | | | COMPARISON: | | XR CHEST INSPIRATION AND EXPIRATION (11/27/2019); XR CHEST INSPIRATION | | AND EXPIRATION (11/27/2019); CT GUIDED CHEST TUBE PLACEMENT (11/26/2019); | | | | FINDINGS: | | Slight apical pneumothorax stable to possibly slightly decreased in | | size from the prior study. Pigtail chest tube is in stable position. | | The cardiac silhouette is stable. | | | | IMPRESSION: | | Stable tiny apical pneumothorax status post clamping trial. | | | | | | | | Signed by: Fariba Chisholm Richard | | Sign Date/Time: 11/27/2019 1:54 PM | + + + +---------+ + + | Performing | Address | City/State/Zipcode | Phone Number | | Organization | | | | + +---------+ + + | [facility] | | | | + +---------+ + + XR Chest Inspiration and Expiration (11/27/2019 11:12 AM PDT) + + | Specimen | + + | | + + + + + | Impressions | Performed At | + + + | Small right apical pneumothorax, slightly increased in size since | [facility] | | the previous examination. Signed by: Fariba Leonardo Amit | | | Sign Date/Time: 11/27/2019 11:36 AM | | + + + + + + | Narrative | Performed At | + + + | XR CHEST INSPIRATION AND EXPIRATION CLINICAL INFORMATION: | [facility] | | Right chest tube placed on water seal, pneumothorax. COMPARISON: | | | XR CHEST INSPIRATION AND EXPIRATION (11/27/2019); CT GUIDED CHEST TUBE | | | PLACEMENT (11/26/2019); CT GUIDED BIOPSY LUNG OR MEDIASTINUM | | | (11/26/2019); PET CT SKULL BASE TO MID THIGH (11/18/2019); FINDINGS: | | | Right apical pneumothorax measuring 1.1 cm, previously 0.7 cm. | | | Right-sided chest tube seen, tip projecting in the right mid | | | hemithorax. Small amount of left lung base opacity appears | | | unchanged. Cardiomediastinal silhouette and osseous structures appear | | | unremarkable. Right lung mass again seen | | + + + + + | Procedure Note | + + | Antoine, Rad Results In - 11/27/2019 11:40 AM PDT | | XR CHEST INSPIRATION AND EXPIRATION | | | | CLINICAL INFORMATION: | | Right chest tube placed on water seal, pneumothorax. | | | | COMPARISON: | | XR CHEST INSPIRATION AND EXPIRATION (11/27/2019); CT GUIDED CHEST TUBE | | PLACEMENT (11/26/2019); CT GUIDED BIOPSY LUNG OR MEDIASTINUM | | (11/26/2019); PET CT SKULL BASE TO MID THIGH (11/18/2019); | | | | FINDINGS: | | Right apical pneumothorax measuring 1.1 cm, previously 0.7 cm. | | Right-sided chest tube seen, tip projecting in the right mid | | hemithorax. Small amount of left lung base opacity appears unchanged. | | Cardiomediastinal silhouette and osseous structures appear | | unremarkable. Right lung mass again seen | | | | IMPRESSION: | | Small right apical pneumothorax, slightly increased in size since the | | previous examination. | | | | | | | | Signed by: Fariba Leonardo, Josh | | Sign Date/Time: 11/27/2019 11:36 AM | + + + +---------+ + + | Performing | Address | City/State/Zipcode | Phone Number | | Organization | | | | + +---------+ + + | [facility] | | | | + +---------+ + + XR Chest Inspiration and Expiration (11/27/2019 7:17 AM PDT) + + | Specimen | + + | | + + + + + | Impressions | Performed At | + + + | 1. There is a right-sided pigtail chest tube which terminates over | [facility] | | the medial lower hemithorax. 2. There is mild medial bibasilar | | | atelectasis, unchanged. 3. Cardiomediastinal contours are stable. 4. | | | Small right apical pneumothorax. This measures 8 mm from the apical | | | chest wall. This previously measured 3.7 cm from the apical chest | | | wall. Signed by: Fariba Salazar Paula Sign Date/Time: | | | 11/27/2019 7:20 AM | | + + + + + + | Narrative | Performed At | + + + | XR CHEST INSPIRATION AND EXPIRATION CLINICAL INFORMATION: | [facility] | | Right sided pneumothorax s/p chest tube. COMPARISON: X-ray | | | yesterday. | | + + + + + | Procedure Note | + + | Antoine, Rad Results In - 11/27/2019 7:24 AM PDT | | XR CHEST INSPIRATION AND EXPIRATION | | | | CLINICAL INFORMATION: | | Right sided pneumothorax s/p chest tube. | | | | COMPARISON: | | X-ray yesterday. | | | | IMPRESSION: | | 1. There is a right-sided pigtail chest tube which terminates over the | | medial lower hemithorax. | | 2. There is mild medial bibasilar atelectasis, unchanged. | | 3. Cardiomediastinal contours are stable. | | 4. Small right apical pneumothorax. This measures 8 mm from the apical | | chest wall. This previously measured 3.7 cm from the apical chest wall. | | | | | | | | Signed by: Fariba Salazar Paula | | Sign Date/Time: 11/27/2019 7:20 AM | + + + +---------+ + + | Performing | Address | City/State/Zipcode | Phone Number | | Organization | | | | + +---------+ + + | [facility] | | | | + +---------+ + + Basic Metabolic Panel (11/27/2019 5:38 AM PDT) + + + + + + | Component | Value | Ref Range | Performed | Pathologist | | | | | At | Signature | + + + + + + | Na | 138 | 135 - 145 | [facility] | | | | | mmol/L | LABORATORY | | + + + + + + | K | 3.5 | 3.5 - 4.9 | [facility] | | | | | mmol/L | LABORATORY | | + + + + + + | Cl | 102 | 99 - 109 mmol/L | [facility] | | | | | | LABORATORY | | + + + + + + | CO2 | 30 | 23 - 32 mmol/L | [facility] | | | | | | LABORATORY | | + + + + + + | Anion Gap | 10 | 5 - 20 mmol/L | [facility] | | | | | | LABORATORY | | + + + + + + | Glucose | 177 (H) | 65 - 99 mg/dL | [facility] | | | | | | LABORATORY | | + + + + + + | BUN | 10 | 8 - 25 mg/dL | [facility] | | | | | | LABORATORY | | + + + + + + | Creatinine | 0.63 | 0.50 - 1.00 | [facility] | | | | | mg/dL | LABORATORY | | + + + + + + | BUN/Creatin | 16 | | [facility] | | | ine Ratio | | | LABORATORY | | + + + + + + | Calcium | 8.7 | 8.5 - 10.5 | [facility] | | | | | mg/dL | LABORATORY | | + + + + + + | Estimated | >60Comment: GFR <60: | >60 | [facility] | | | GFR | CHRONIC KIDNEY DISEASE, | mL/min/1.73m2 | LABORATORY | | | | IF FOUND OVER A 3 MONTH | | | | | | PERIOD.GFR <15: KIDNEY | | | | | | FAILURE.FOR | | | | | | AMERICANS, MULTIPLY THE | | | | | | CALCULATED GFR BY | | | | | | 1.210.This eGFR is | | | | | | calculated using the | | | | | | MDRD IDMS traceable | | | | | | equation.Testing | | | | | | performed at [facility];[address] | | | [address] | [address];[place] | | | | | | [address] | | | | + + + + + + + + | Specimen | + + | Blood | + + + + + + + | Performing | Address | City/State/Zipcode | Phone Number | | Organization | | | | + + + + + | [facility] | [address] | [place] [address] | [phone] | + + + + + CBC no Differential (11/27/2019 5:38 AM PDT) + + + + + + | Component | Value | Ref Range | Performed | Pathologist | | | | | At | Signature | + + + + + + | WBC | 9.27 | 3.80 - 11.00 | [facility] | | | | | K/uL | LABORATORY | | + + + + + + | Red Blood | 4.05 | 3.70 - 5.10 | [facility] | | | Cells | | M/uL | LABORATORY | | + + + + + + | Hemoglobin | 13.2 | 11.3 - 15.5 | [facility] | | | | | g/dL | LABORATORY | | + + + + + + | Hematocrit | 39.4 | 34.0 - 46.0 % | [facility] | | | | | | LABORATORY | | + + + + + + | MCV | 97.3 | 80.0 - 100.0 fl | [facility] | | | | | | LABORATORY | | + + + + + + | MCH | 32.6 | 27.0 - 34.0 pg | [facility] | | | | | | LABORATORY | | + + + + + + | MCHC | 33.5 | 32.0 - 35.5 | [facility] | | | | | g/dL | LABORATORY | | + + + + + + | RDW-SD | 50.6 | 37 - 53 fl | [facility] | | | | | | LABORATORY | | + + + + + + | Platelet | 230 | 150 - 400 K/uL | [facility] | | | Count | | | LABORATORY | | + + + + + + | MPV | 10.3Comment: NO NORMAL | fl | [facility] | | | | RANGE ESTABLISHEDTesting | | LABORATORY | | | | performed at [facility], [address] | | | [address] | [address], | | | | | | [place] [address] | | | | + + + + + + + + | Specimen | + + | Blood | + + + + + + + | Performing | Address | City/State/Zipcode | Phone Number | | Organization | | | | + + + + + | [facility] | [address] | [place] [address] | [phone] | + + + + + CT Guided Chest Tube Placement (11/26/2019 3:11 PM PDT) + + | Specimen | + + | | + + + + + | Impressions | Performed At | + + + | Uncomplicated CT-guided 10 German right chest tube placement. | [facility] | | Signed by: Fariba Chisholm, Dax Sign Date/Time: 11/26/2019 4:17 | | | PM | | + + + + + + | Narrative | Performed At | + + + | CT GUIDED DRAINAGE RIGHT CHEST CLINICAL INFORMATION: | [facility] | | Pneumothorax PROCEDURE: Prior to the procedure, risks and | | | benefits were explained to the patient and informed written and | | | verbal consent obtained. Patient was placed on the CT gantry and | | | initial localizing scans were performed. Using lidocaine for local | | | anesthesia and intravenous sedation, the right chest is punctured | | | under CT guidance. An 0.35 guide wire is placed into the collection | | | and the tract dilated. A catheter is then placed over the wire. | | | Patient tolerated the procedure well. No immediate complications. | | | Conscious sedation was administered. The nurse administered 2 mg | | | Versed and 100 mcg of Chelsea during the examination and monitored | | | blood pressure, heart rate, and pulse oximeter. Physician intraservice | | | time of 30 minutes. Estimated Blood Loss: Less than 50 cc's. | | | At least one of the following CT dose optimization techniques were | | | used: Automated exposure control; Adjustment of mA and/or kV according | | | to patient size; Use of iterative reconstruction technique. | | + + + + + | Procedure Note | + + | Antoine, Rad Results In 11/26/2019 4:20 PM PDT | | CT GUIDED DRAINAGE RIGHT CHEST | | | | CLINICAL INFORMATION: | | Pneumothorax | | | | PROCEDURE: | | Prior to the procedure, risks and benefits were explained to the | | patient and informed written and verbal consent obtained. Patient was | | placed on the CT gantry and initial localizing scans were performed. | | Using lidocaine for local anesthesia and intravenous sedation, the | | right chest is punctured under CT guidance. An 0.35 guide wire is | | placed into the collection and the tract dilated. A catheter is then | | placed over the wire. Patient tolerated the procedure well. No | | immediate complications. | | | | Conscious sedation was administered. The nurse administered 2 mg | | Versed and 100 mcg of Chelsea during the examination and monitored | | blood pressure, heart rate, and pulse oximeter. Physician intraservice | | time of 30 minutes. | | | | Estimated Blood Loss: Less than 50 cc's. | | | | At least one of the following CT dose optimization techniques were | | used: Automated exposure control; Adjustment of mA and/or kV according | | to patient size; Use of iterative reconstruction technique. | | | | IMPRESSION: | | Uncomplicated CT-guided 10 German right chest tube placement. | | | | | | | | Signed by: Fariba Chisholm Richard | | Sign Date/Time: 11/26/2019 4:17 PM | + + + +---------+ + + | Performing | Address | City/State/Zipcode | Phone Number | | Organization | | | | + +---------+ + + | [facility] | | | | + +---------+ + + Basic Metabolic Panel (11/26/2019 3:09 PM PDT) + + + + + + | Component | Value | Ref Range | Performed | Pathologist | | | | | At | Signature | + + + + + + | Na | 139 | 135 - 145 | [facility] | | | | | mmol/L | LABORATORY | | + + + + + + | K | 4.1 | 3.5 - 4.9 | [facility] | | | | | mmol/L | LABORATORY | | + + + + + + | Cl | 100 | 99 - 109 mmol/L | [facility] | | | | | | LABORATORY | | + + + + + + | CO2 | 33 (H) | 23 - 32 mmol/L | [facility] | | | | | | LABORATORY | | + + + + + + | Anion Gap | 10 | 5 - 20 mmol/L | [facility] | | | | | | LABORATORY | | + + + + + + | Glucose | 93 | 65 - 99 mg/dL | [facility] | | | | | | LABORATORY | | + + + + + + | BUN | 7 (L) | 8 - 25 mg/dL | [facility] | | | | | | LABORATORY | | + + + + + + | Creatinine | 0.72 | 0.50 - 1.00 | [facility] | | | | | mg/dL | LABORATORY | | + + + + + + | BUN/Creatin | 10 | | [facility] | | | ine Ratio | | | LABORATORY | | + + + + + + | Calcium | 9.1 | 8.5 - 10.5 | [facility] | | | | | mg/dL | LAB[facility]AT[facility] | | + + + + + + | Estimated | >60Comment: GFR <60: | >60 | [facility] | | | GFR | CHRONIC KIDNEY DISEASE, | mL/min/1.73m2 | LABORATORY | | | | IF FOUND OVER A 3 MONTH | | | | | | PERIOD.GFR <15: KIDNEY | | | | | | FAILURE.FOR | | | | | | AMERICANS, MULTIPLY THE | | | | | | CALCULATED GFR BY | | | | | | 1.210.This eGFR is | | | | | | calculated using the | | | | | | MDRD AKMS traceable | | | | | | equation.Testing | | | | | | performed at [facility];[address] | | | [address] | [address];[place], [place] | | | | | | [address] | | | | + + + + + + + + | Specimen | + + | Blood | + + + + + + + | Performing | Address | City/State/Zipcode | Phone Number | | Organization | | | | + + + + + | [facility] | [address] | [place] [address] | [phone] | + + + + + XR Chest Expiration Only (11/26/2019 12:20 PM PDT) + + | Specimen | + + | | + + + + + | Impressions | Performed At | + + + | Increasing right pneumothorax status post lung biopsy. | [facility] | | Signed by: Fariba Chisholm Richard Sign Date/Time: 11/26/2019 12:41 PM | | | | | + + + + + + | Narrative | Performed At | + + + | CHEST INSPIRATION OR EXPIRATION ONLY CLINICAL INFORMATION: | [facility] | | Small pneumothorax COMPARISON: XR CHEST INSPIRATION AND | | | EXPIRATION (11/26/2019); XR CHEST EXPIRATION ONLY (11/26/2019); | | | FINDINGS: The pneumothorax is continuing to increase and is now at | | | least moderate. | | + + + + + | Procedure Note | + + | Antoine, Rad Results In - 11/26/2019 12:45 PM PDT | | CHEST INSPIRATION OR EXPIRATION ONLY | | | | CLINICAL INFORMATION: | | Small pneumothorax | | | | COMPARISON: | | XR CHEST INSPIRATION AND EXPIRATION (11/26/2019); XR CHEST EXPIRATION | | ONLY (11/26/2019); | | | | FINDINGS: | | The pneumothorax is continuing to increase and is now at least moderate. | | | | IMPRESSION: | | Increasing right pneumothorax status post lung biopsy. | | | | | | | | Signed by: Fariba Chisholm Richard | | Sign Date/Time: 11/26/2019 12:41 PM | + + + +---------+ + + | Performing | Address | City/State/Zipcode | Phone Number | | Organization | | | | + +---------+ + + | [facility] | | | | + +---------+ + + XR Chest Inspiration and Expiration (11/26/2019 10:27 AM PDT) + + | Specimen | + + | | + + + + + | Impressions | Performed At | + + + | Slight increased size of the right pneumothorax status post lung | [facility] | | biopsy. Signed by: Fariba Chisholm Richard Sign Date/Time: | | | 11/26/2019 10:48 AM | | + + + + + + | Narrative | Performed At | + + + | XR CHEST INSPIRATION AND EXPIRATION CLINICAL INFORMATION: | [facility] | | Lung biopsy. COMPARISON: XR CHEST EXPIRATION ONLY (11/26/2019); | | | PET CT SKULL BASE TO MID THIGH (11/18/2019); FINDINGS: The right | | | pneumothorax is slightly increased from the prior study. Other | | | findings are stable. | | + + + + + | Procedure Note | + + | Jake Schultz Results In - 11/26/2019 10:51 AM PDT | | XR CHEST INSPIRATION AND EXPIRATION | | | | CLINICAL INFORMATION: | | Lung biopsy. | | | | COMPARISON: | | XR CHEST EXPIRATION ONLY (11/26/2019); PET CT SKULL BASE TO MID THIGH | | (11/18/2019); | | | | FINDINGS: | | The right pneumothorax is slightly increased from the prior study. | | Other findings are stable. | | | | IMPRESSION: | | Slight increased size of the right pneumothorax status post lung biopsy. | | | | | | | | Signed by: Fariba Chisholm, Dax | | Sign Date/Time: 11/26/2019 10:48 AM | + + + +---------+ + + | Performing | Address | City/State/Zipcode | Phone Number | | Organization | | | | + +---------+ + + | [facility] | | | | + +---------+ + + XR Chest Expiration Only (11/26/2019 9:17 AM PDT) + + | Specimen | + + | | + + + + + | Impressions | Performed At | + + + | Stable right apical pneumothorax. Signed by: Phan, | [facility] | | Dax Link Date/Time: 11/26/2019 9:21 AM | | + [...] | | | | Signed by: Fariba Chisholm, Dax | | Sign Date/Time: 11/26/2019 9:21 AM | + + + +---------+ + + | Performing | Address | City/State/Zipcode | Phone Number | | Organization | | | | + +---------+ + + | [facility] | | | | + +---------+ + + CT Guided Biopsy Lung Or Mediastinum (11/26/2019 [...] | | | + +---------+ + + Surgical Pathology Exam (11/26/2019 8:30 AM PDT) + + | Specimen | + + | Tissue - Entire | | right lower lobe of | | lung (body | | structure) | + + + + + | Narrative | Performed At | + + + | THIS IS | [facility] | | AN ADDENDUM REPORT SPECIMEN(S): A RIGHT LOWER LOBE LUNG BIOPSY | [facility] | | SPECIMEN SOURCE:A. RIGHT LOWER LOBE LUNG BIOPSY CLINICAL HISTORY:R91.1 | | | (incidental pulmonary nodule, greater than or equal to 8 mm). FINAL | | | PATHOLOGIC DIAGNOSIS:Lung, right lower lobe, biopsy: - Well to | | | moderately differentiated adenocarcinoma COMMENT:Ancillary studies | | | are pending. These results were conveyed to Dr. Banegas. As part of | | | the Surgeon/President Program, this case was reviewed by another | | | member of [facility]. (AMB) MICROSCOPIC EXAMINATION:Histologic | | | sections of all submitted blocks are examined by light microscopy. | | | These findings, together with the gross examination, support the | | | pathologic diagnosis. GROSS DESCRIPTION:The specimen, labeled | | | "Tammi Laura," and designated on the requisition "lung | | | biopsy," is received fresh for intraprocedural consult and consists of | | | six core fragment(s) of pink-white] tissuemeasuring up to 1.3 cm. | | | Intraprocedural touch preps were performed by Dr. Mejia to assess | | | specimen adequacy. The results were communicated to the radiologist as | | | follows:Core #1: Additional material requestedCore #2: Additional | | | material requestedCore #3: Appears adequate The cores are inked blue | | | and submitted in cassettes (A1-A2).FB (under the direct supervision of | | | a pathologist) The Gross Description was prepared using a voice | | | recognition system. The report was reviewed for accuracy; however, | | | sound-alike word errors, addition and/or deletions may occur. If | | | there is anyquestion about this report, please contact Client | | | Services. PERFORMING LABORATORY:The professional interpretation was | | | performed by [facility], [address] | | [place], [place] (Lead Architect: Diego Mejia M.D.; | | | CLIA#: [id number]).The technical component was performed by [facility] | | | [facility], [address] [place] [id number] (Lead Architect: | | | Gayatri Hatch MD; CLIA# [id number]). REASON FOR ADDENDUM:To add results | | | of additional testing. ADDENDUM PATHOLOGIC DIAGNOSIS:PD-L1 expression | | | by IHC:- Tumor proportion score: 90%.- Interpretation of PD-L1 | | | expression level: High expression (greater than or equal to 50%).- | | | Intensity: Moderate. ADDENDUM COMMENT:PD-L1 protein expression by | | | immunohistochemistry is performed on block A2 at the request of | | | Roberto. MZ:caw Immunohistochemistry (IHC) studies for PD-L1 using the | | | concentrated Dako 22C3 clone on the VENTANA BenchMark Ultra platform | | | with OptiView detection was performed at [facility], [facility] | | | [place], [place]. The Dako 22C3 pharmDx clone is not | | | FDA approved for use on the VENTANA platform; however, comparison | | | studies show nearly 100% concordance of results for the testperformed | | | using the concentrated Dako 22C3 clone on the VENTANA BenchMark Ultra | | | platform compared to the FDA approved Dako 22C3 pharmDx protocol on | | | the Dako Autostainer Link48 (ASL48) platform*. Thetest using the | | | concentrated Dako 22C3 clone was developed and its performance | | | characteristics determined by [facility], but this does not | | | represent FDA-approved application of this assay. [facility] | | | is certified under the Clinical Laboratory Improvement Amendment of | | | 1988 (CLIA) as qualified to perform high complexity clinical | | | laboratory testing. This test is used for clinicalpurposes. It | | | should not be regarded as investigational or for research. * Use of | | | the 22C3 anti | | | | | | PD-L1 antibody to determine PD-L1 expression in multiple automated | | | immunohistochemistry platformsInez Huff, Gustabo S, Georgina | | | C, Sidney L, Leslie J, et al. (2017). Use of the 22C3 anti | | | | | | PD-L1 antibody to determine PD-L1 expression in multiple automated | | | immunohistochemistry platforms. PLOSONE 12(8): x8530606. | | | https://doi.org/10.1371/journal.pone.8134740 The technical component | | | and professional interpretation were performed by [facility], | | | [address] [place] [address] (Lead Architect: | | | Rg Garcia D.O.; CLIA#:[id number]). REASON FOR ADDENDUM:To add | | | results of additional testing. BLOCK A2 RESULTS ARE QNS. BLOCK A1 | | | HAS BEEN SENT ON 12/08/2019 TO ATTEMPT RETESTING. Right lower lobe | | | lung (A2), BRAF mutation analysis: Results:BRAF Mutation TNP - Test | | | Not Performed Comments:After pathologist review of an HE-stained | | | slide, we have determined that there is insufficient or no tumor is | | | present to properly perform testing analysis. Please submit another | | | block for testing, ifavailable. The Technical Component Processing, | | | Analysis and Professional Component of this test was completed at | | | [facility] [address] / [address] / | | | [phone] / CLIA#[id number] / Lead Architect(s): Manda Bonilla | | | Fariba (Accession/CaseNo: [id number])The performance | | | characteristics of this test have been determined by [facility] | | | Laboratories. This test has not been approved by the FDA. The FDA has | | | determined such clearance or approval is not necessary. This | | | laboratory is CLIA certified to perform high complexity clinical | | | testing.Images that may be included within this report are | | | telephone service representative of the patient but not all testing in its entirety and | | | should not be used to render a result.The CPT codes provided with our | | | test descriptions are based on MolDX and AMA guidelines and are for | | | informational purposes only. Correct CPT coding is the sole | | | responsibility of the billing green party.Please direct any questions | | | regarding coding to the payer being billed. Right lower lobe lung | | | (A2), EGFR mutation analysis: Results: Test Result MutationsEGFR | | | MutationEGFR Exon 18 TNP - Test Not Performed N/AEGFR Exon 19 TNP - | | | Test Not Performed N/AEGFR Exon 20 T790M TNP - Test Not Performed | | | N/AEGFR Exon 20 Other Mutations TNP - Test Not Performed N/AEGFR Exon | | | 21 TNP - Test Not Performed N/A Comments: After pathologist review of | | | an HE-stained slide, we have determined that there is insufficient or | | | no tumor is present to properly perform testing analysis. Please | | | submit another block for testing, ifavailable. The Technical | | | Component Processing, Analysis and Professional Component of this test | | | was completed at [facility] [place], [address] [place] [address] | | | / [address] / [phone] / CLIA#[id number] / Lead Architect(s): Manda | | | Fariba Bonilla (Accession/CaseNo: [id number])The | | | performance characteristics of this test have been determined by | | | [facility]. This test has not been approved by the FDA. | | | The FDA has determined such clearance or approval is notnecessary. | | | This laboratory is CLIA certified to perform high complexity clinical | | | testing.Images that may be included within this report are | | | telephone service representative of the patient but not all testing in its entirety and | | | should not be used to render a result. The CPT codes provided with our | | | test descriptions are based on MolDX and AMA guidelines and are for | | | informational purposes only. Correct CPT coding is the sole | | | responsibility of the billing green party.Please direct any questions | | | regarding coding to the payer being billed. Right Lower Lobe Lung | | | (A2), ALK Lung FISH Analysis Results: QNS Interpretation:After | | | pathologist review of an HE stained slide from block #[id number], | | | there appears to be a limited amount of cells remaining in the block. | | | This test assay cannot be performed on the givenblock due to quantity | | | not sufficient. Please submit another block, if available. The | | | Technical Component Processing, Analysis and Professional Component of | | | this test was completed at [facility] [place], [address] [place] [address] | | | [place] / [address] / [phone] / [place] #[id number] / Medical | | | Director(s): Manda Bonilla M.D. (Accession / Case No: [id number] / | | | [id number]). [facility] FISH test uses either FDA | | | cleared and/or analyte specific reagent (ASR) probes. Thistest was | | | developed and its performance characteristics determined by the | | | performing laboratory. It has not been cleared or approved by the U.S. | | | Food and Drug Administration (FDA). The FDA hasdetermined that such | | | clearance or approval is not necessary. This test is used for clinical | | | purposes and should not be regarded as investigational or for | | | research. This laboratory is regulated underCLIA '88 as qualified to | | | perform high complexity testing. Interphase FISH does not include | | | examination of the entire chromosomal complement. Images that may be | | | included within this report arerepresentative of the patient but not | | | all testing in its entirety and should not be used to render a result. | | | The CPT codes provided with our test descriptions are based on AMA | | | guidelines and are for informational purposes only. Correct CPT coding | | | is the sole responsibility of the billing green party. Please direct any | | | questions regarding coding to the payer being billed. Right Lower Lobe | | | Lung (A2), ROS1 FISH Analysis Results: QNS Interpretation:After | | | pathologist review of an HE stained slide from block #[id number], | | | there appears to be no tumor tissue remaining in the block.This test | | | assay cannot be performed on the given block due to quantity not | | | sufficient. Please submit another block, if available. The Technical | | | Component Processing and Analysis of this test was completed at | | | [facility] [place], [address] [place] [address] / [address] / | | | [phone] / [facility] #[id number] / Lead Architect(s):Manda Bonilla | | | Shaji. The Professional Component of this test was completed at | | | [facility] [place], [address] [place] [address] | | | / [address] / [phone] / Lead Architect(s): Amalia Shane MD. | | | Accession / CaseNo: [id number] / [id number]). [facility] | | | FISH test uses either FDA cleared and/or analyte specific reagent | | | (ASR) probes. This test was developed and itsperformance | | | characteristics determined by [facility] in [place], | | | [place]. It has not been cleared or approved by the U.S. Food and Drug | | | Administration (FDA). The FDA has determined thatsuch clearance or | | | approval is not necessary. This test is used for clinical purposes and | | | should not be regarded as investigational or for research. This | | | laboratory is regulated under CLIA '88 asqualified to perform high | | | complexity testing. Interphase FISH does not include examination of | | | the entire chromosomal complement. Clinically significant anomalies | | | detectable by routine bandedcytogenetic analysis may still be present. | | | Consider reflex banded cytogenetic analysis. Images that may be | | | included within this report are telephone service representative of the patient but not | | | all testing in its entirety and should not be used to render a result. | | | The CPT codes provided with our test descriptions are based on AMA | | | guidelines and are for informational purposes only. Correct CPT coding | | | is thesole responsibility of the billing green party. Please direct any | | | questions regarding coding to the payer being billed.To add results of | | | additional testing. Right lower lobe lung biopsy, ALK Lung FISH | | | Analysis (block A1): Results: Negative Interpretation:ALK | | | Rearrangement: Not Detected (Negative) FISH probe signals were within | | | the normal reference range. An ALK gene rearrangement was observed in | | | 0% of the nuclei scored and is below the threshold of positivity. This | | | represents a NEGATIVE resultand suggests that ALK inhibitors are not | | | indicated. Methodology: Interphase FISH analysis was performed using | | | the ALK Break Apart FISH Probe Kit. Along with fluorescence in situ | | | hybridization (FISH), an HE stained slide was reviewed by a | | | pathologist to identify the target area containing invasive tumor. | | | FISH analysis of at least 50 interphase nuclei was performed within | | | the marked target area. Reference: Supriya Rogers. | | | Personalized therapy for lung cancer: striking a moving target. [employer] | | | Insight. 2018;3(15). PMID:24678087. Reference Ranges:ALK Lung: The | | | sample is considered positive if >50% of the first 50 cells scored are | | | positive, and considered negative if <10% cells are positive. If | | | 10-50% of cells are positive, an additional 50cells are evaluated by a | | | second technologist. The sample is then considered positive if > or = | | | 15% of all 100 cells scored are positive. Probe Set Detail:ALK Lung: | | | nuc meet(ALKx1>1)[50] Comments:The results of this assay have been | | | determined within the limitations described and should not be used | | | interchangeably with resulting values from other methods or kits. | | | These results are intended to be used as an adjunct to other | | | concurrent testing in patient care management. Therefore, the presence | | | or absence of a malignant disease cannot be determined based solely | | | on these results. Clinicalcorrelation is advised. Nuclei Scored: 50 | | | Probe set: ALK LungScoring method: ManualCPT Code: 32067# of | | | Units: 1 All controls were within expected ranges.The Technical | | | Component Processing and Analysis of this test was completed at | | | [facility] [place], [address] [place], [place] [address], [place] / [address] / | | | [phone] / CLIA #[id number] / Lead Architect(s):Manda Bonilla | | | Fariba (Accession / Case No: [id number] / [id number]). The Professional | | | Component of this test was completed at [facility] [place], [address] | | [facility], [address],[place], [place] / [address] / | | | [phone] / CLIA# [id number] / Lead Architect(s): Fernando Frost | | | MD Abhijit. [facility] FISH test uses either FDA cleared | | | and/or analyte specific reagent (ASR) probes. This test was developed | | | and its performance characteristics determined by the performing | | | laboratory. It has not been cleared or approved by the U.S. Food and | | | Drug Administration (FDA). The FDAhas determined that such clearance | | | or approval is not necessary. This test is used for clinical purposes | | | and should not be regarded as investigational or for research. This | | | laboratory is regulatedunder CLIA '88 as qualified to perform high | | | complexity testing. Interphase FISH does not include examination of | | | the entire chromosomal complement. Images that may be included within | | | this report arerepresentative of the patient but not all testing in | | | its entirety and should not be used to render a result. The CPT codes | | | provided with our test descriptions are based on AMA guidelines and | | | are forinformational purposes only. Correct CPT coding is the sole | | | responsibility of the billing green party. Please direct any questions | | | regarding coding to the payer being billed. Right lower lobe lung | | | biopsy, ROS1 FISH Analysis (block A1): Results: Negative | | | Interpretation:ROS1 Gene Rearrangement: Not Detected (Negative) FISH | | | probe signals were within the normal reference range. A ROS1 gene | | | rearrangement was observed in 4% of the nuclei scored and is below the | | | cut-off for this assay. This represents a NEGATIVE resultand suggests | | | that ROS1 inhibitors are not indicated. Methodology: Interphase FISH | | | analysis was performed using a ROS1 Break Apart FISH Probe. Along with | | | fluorescence in situ hybridization (FISH), an HE stained slide was | | | reviewed by a pathologist toidentify the target area containing | | | invasive tumor. FISH analysis of 50 interphase nuclei was performed | | | within the marked target area. Reference: Supriya Rogers. | | | Personalized therapy for lung cancer: striking a moving target. [facility] | | | Insight. 2018;3(15). PMID:[id number]. Reference Ranges: ROS1: The sample | | | is considered positive if >50% of the first 50 cells scored are | | | positive, and considered negative if <10% cells are positive. If | | | 10-50% of cells are positive, an additional 50 cellsare evaluated by a | | | second technologist. The sample is then considered positive if > or = | | | 15% of all 100 cells scored are positive. Probe Set Detail:ROS1: nuc | | | meet(ROS1x1>1)[48] Comments:The results of this assay have been | | | determined within the limitations described and should not be used | | | interchangeably with resulting values from other methods or kits. | | | These results are intended rob used as an adjunct to other concurrent | | | testing in patient care management. Therefore, the presence or | | | absence of a malignant disease cannot be determined based solely on | | | these results. Clinicalcorrelation is advised. Nuclei Scored: 50 Probe | | | set: [id number] method: ManualCPT Code: 39208# of Units: 1 | | | All controls were within expected ranges. The Technical Component | | | Processing and Analysis of this test was completed at [facility] | | | [address] / [address] / [phone] / CLIA | | | #[id number] / Lead Architect(s):Manda Bonilla M.D. (Accession / | | | Case No: [id number] / [id number]). The Professional Component of this | | | test was completed at [facility] [address] | | | [facility] [address],[place] / [address] / [phone] / CLIA# | | | [id number] / Lead Architect(s): Fernando Lacey MD. [facility] | | | [facility] FISH test uses either FDA cleared and/or analyte specific | | | reagent (ASR)probes. This test was developed and its performance | | | characteristics determined by [facility] in [place], | | | [place]. It has not been cleared or approved by the U.S. Food and | | | DrugAdministration (FDA). The FDA has determined that such clearance | | | or approval is not necessary. This test is used for clinical purposes | | | and should not be regarded as investigational or for research. This | | | laboratory is regulated under CLIA '88 as qualified to perform high | | | complexity testing. Interphase FISH does not include examination of | | | the entire chromosomal complement. Clinically significantanomalies | | | detectable by routine banded cytogenetic analysis may still be | | | present. Consider reflex banded cytogenetic analysis. Images that may | | | be included within this report are telephone service representative of thepatient but | | | not all testing in its entirety and should not be used to render a | | | result. The CPT codes provided with our test descriptions are based on | | | AMA guidelines and are for informational purposesonly. Correct CPT | | | coding is the sole responsibility of the billing green party. Please direct | | | any questions regarding coding to the payer being billed. Right lower | | | lobe lung biopsy, BRAF Mutation Analysis (block A1): Test: BRAF | | | Mutation Result: Not Detected Clinical Significance: BRAF mutations | | | are frequently found in human cancers. They are found most frequently | | | in melanoma (50-70%), papillary thyroid cancer (36-40%) and most all | | | hairy cell leukemias. BRAF mutations are alsofound with low frequency | | | in colorectal cancer (5-12%), non-small cell lung cancer (NSCLC), | | | acute myeloid leukemia (AML), glioma, sarcomas, breast cancer, | | | hepatoma, and ovarian cancer. The presence ofBRAF mutation is believed | | | to be mutually exclusive to the diagnosis of Peraza syndrome (3). | | | Patients with BRAF activating mutations, such as those at V600, may | | | respond to therapy including BRAF and MEK inhibitors or anti-VEGF | | | antibodies. BRAF inactivating mutations, such as those at D594,are | | | unlikely to respond to BRAF inhibitors, but may respond to MEK | | | inhibitors. In patients with metastatic colorectal cancer (CRC), the | | | therapeutic significance of BRAF mutation remains controversial.Some | | | studies suggest that it is similar to KRAS mutation, associated with | | | resistance to anti-EGFR therapy. However, recent meta-analysis | | | suggested that patients with BRAF mutation, when treated with | | | anti-EGFR, show similar response to patients without any mutation. | | | Methodology:DNA was isolated from cells or microdissection-enriched | | | FFPE tissue. Minimum percentage of tumor in FFPE is at least 20% tumor | | | nuclei out of total nuclei based on pathologist review of an | | | HE-stainedslide. BRAF mutations were evaluated in the entire coding | | | region of BRAF exon 15 by high-sensitivity Petal sequencing which | | | improves the lower detection limit in mutation hotspot regions | | | toapproximately 1% abnormal DNA. This includes V600 mutations and | | | mutations in adjacent codons 598, 599, and 601. Mutation detection | | | outside these hotspot regions has a typical lower detection limit | | | of10-15% mutated BRAF in a wild-type background. The patient's | | | sequence is compared to the NCBI database: [id number]. Various factors | | | including quantity and quality of nucleic acid, sample preparation and | | | sample age can affect assay performance. References:1. Devan G, | | | Jacquie M, Lee A, et al. Molecular pathology of thyroid tumours of | | | follicular cells: a review of genetic alterations and their | | | clinicopathological relevance. Histopathology.2018;72(1):6-31. PMID: | | | 74442382.2. Jadiel L, Clifford-Elroy A, Sj F, et al. Molecular | | | testing for BRAF mutations to inform melanoma treatment decisions: a | | | move toward precision medicine. Mod Pathol. 2018;31(1):24-38. | | | PMID:88722480.3. Kevin H, Miguel T, Jayy ML, Tim JW. The | | | interaction between BRAF mutation and microsatellite instability (MSI) | | | status in determining survival outcomes after adjuvant 5FU based | | | chemotherapyin stage III colon cancer. J Surg Oncol. | | | 2018;118(8):5164-6424. PMID: 52267514.4. Brandon DEWEY, Jules LA, | | | Al-Destiny SILVESTRE, et al. Non-V600 BRAF Mutations Define a Clinically | | | Distinct Molecular Subtype of Metastatic Colorectal Cancer. J Clin | | | Oncol. 2017;35(23):5971-6800. PMID:08879613. 5. Feng Franco, | | | Carlton Montana. New perspectives for targeting LISSA | | | kinase in human cancer. Liyah Rev Cancer. 2017;17(11):676-691. PMID: | | | 48653221.6. Ratna G, Bonita C, Naveed K, et al. Beyond the | | | BRAF(V)(600E) hotspot: biology and clinical implications of rare BRAF | | | gene mutations in melanoma patients. Br J Dermatol. | | | 2017;177(4):936-944.PMID: 04750047.7. Yo SG, Monse ML. BRAF | | | mutation testing in colorectal cancer. Arch Pathol Lab Med. | | | 2009;134(8):1225-8. PMID: 29482691.8. Marcelino RJ. Hairy cell | | | leukemia: present and future directions. Leuk Lymphoma. | | | 2019;60(12):8520-4069. PMID: 89943074. Test/Panel: BRAF Mutation | | | AnalysisMolDX CPT: 50055XNU CPT: 93454 The Technical Component | | | Processing, Analysis and Professional Component of this test was | | | completed at [facility], [address] [place] [address], [place] / | | | [address] / [phone] / CLIA #[id number] / Lead Architect(s): Manda | | | Fariba Bonilla (Accession / Case No: [id number] / [id number]). The | | | performance characteristics of this test have been determined by | | | [facility]. This test hasnot been approved by the FDA. | | | The FDA has determined such clearance or approval is not necessary. | | | This laboratory is CLIA certified to perform high complexity clinical | | | testing. Images that may beincluded within this report are | | | telephone service representative of the patient but not all testing in its entirety and | | | should not be used to render a result. The CPT codes provided with our | | | test descriptions are basedon MolDX and AMA guidelines and are for | | | informational purposes only. Correct CPT coding is the sole | | | responsibility of the billing green party. Please direct any questions | | | regarding coding to the payer beingbilled. Right lower lobe lung | | | biopsy, EGFR Mutation Analysis (block A1): Test | | | Result MutationsEGFR MutationEGFR Exon 18 | | | Not Detected N/A EGFR Exon 19 Not | | | Detected N/AEGFR Exon 20 T790M Not Detected N/AEGFR | | | Exon 20 Other Mutations Not Detected N/AEGFR Exon 21 | | | Not Detected N/A Clinical Significance:Patients with | | | non-small cell lung cancer (NSCLC) and mutations in EGFR exons 18, 19, | | | 20 or 21 usually respond to anti-EGFR tyrosine kinase inhibitors | | | (TKIs) and have longer survival when compared toEGFR mutation-negative | | | patients. However, patients being treated with TKIs may develop | | | acquired resistance with secondary mutations in exon 20, such as T790M | | | or, less commonly, L747S, D761Y and T854A. NSCLCs with exon 20 | | | mutations, such as T790M mutation, are usually resistant to first | | | generation (erlotinib, gefitinib) and second generation (afatinib, | | | dacomitinib, neratinib) anti-EGFR TKIs, but may respond to third | | | generation TKIs, such as osimertinib. The less common resistance | | | mutations (e.g. L747S, D761Y and T854A) may respond to second or third | | | generation irreversible TKIs based on earlystudies. Most EGFR exon 20 | | | insertions are resistant to EGFR TKIs with the exception of | | | [id number], which is associated with increased sensitivity to | | | EGFR TKIs. Methodology:DNA was isolated from cells or | | | microdissection-enriched FFPE tissue. Formalin-fixed, | | | paraffin-embedded tumor tissue sections were deparaffinized and DNA | | | was isolated. EGFR tyrosine kinase domainmutations were evaluated in | | | the entirety of exons 18 to 21. The patient's sequence is compared to | | | the EGFR sequence database [id number]. This assay is by Reji | | | sequencing method with Locked NucleicAcid (SHEETING PULLER) for T790M. The | | | sensitivity for detecting the T790M mutation in exon 20 is at least 3% | | | with the remaining mutations having a sensitivity of 10 to 15% for | | | detecting mutated EGFR DNA in a wild-type background. Various factors | | | including quantity and quality of nucleic acid, sample preparation and | | | sample age can affect assay performance. References:1. Lc SINHA et | | | al. Epidermal growth factor receptor mutations in mub-tvdhw-tmsb lung | | | cancer: implications for treatment and tumor biology. J Clin Oncol. | | | 2005; 23:3227-34.2. Karmen TJ, et al. Activating mutations in the | | | epidermal growth factor receptor underlying responsiveness of | | | qme-cctqy-mofb lung cancer to gefitinib. N Engl J Med. 2004; | | | 350:2129-39.3. Carli LV, et al. Response to treatment and survival | | | of patients with non-small cell lung cancer undergoing somatic EGFR | | | mutation testing. Oncologist. 2007;12:90-8.4. Cassidy HOPE, et al. EGFR | | | mutations in lung cancer: correlation with clinical response to | | | gefitinib therapy. Science. 2004; 304:2950-8125. 5. Thaddeus JORDAN, et al. | | | Differential responses to erlotinib in epidermal growth factor | | | receptor (EGFR)-mutated lung cancers with acquired resistance to | | | gefitinib carrying the L747S and T790M secondarymutations. J Clin | | | Oncol. 2008; 26:1182-4.6. Roni Goldberg, Arianna F, Karson B, et al. Phase 2 | | | Study of the HSP-90 Inhibitor FEP959 in Previously Treated and | | | Molecularly Defined Patients with Advanced Non-Small Cell Lung Cancer. | | | J Thorac Oncol.2018;13(4):576-584. Test/Panel: EGFR Mutation | | | AnalysisMolDX CPT: 45682HNV CPT: 73948 The Technical Component | | | Processing, Analysis and Professional Component of this test was | | | completed at [facility], [address] [place] [address], [place] / | | | [address] / [phone] / CLIA #[id number] /Lead Architect(s): Manda | | | Fariba Bonilla (Accession / Case No: [id number] / [id number]). The | | | performance characteristics of this test have been determined by | | | [facility]. This test has not been approved by the FDA. | | | The FDA has determined such clearance or approval is not necessary. | | | This laboratory is CLIA certified to perform high complexity clinical | | | testing. Images that may beincluded within this report are | | | telephone service representative of the patient but not all testing in its entirety and | | | should not be used to render a result. The CPT codes provided with our | | | test descriptions are basedon MolDX and AMA guidelines and are for | | | informational purposes only. Correct CPT coding is the sole | | | responsibility of the billing green party. Please direct any questions | | | regarding coding to the payer beingbilled.To document review of | | | material for external testing. ADDENDUM COMMENT:At the request of | | | Roberto, archived blocks and slides for case [id number] are retrieved | | | on Tammi Laura, and reviewed by a pathologist to assess | | | adequacy for BRAF and EGFR testing. Block A1 was sent to [facility]. | | | AMB:lap Professional interpretation was performed by [facility] | | | [facility], | | | [place] [address] (Lead Architect: Diego Mejia M.D.; CLIA#: | | | [id number]). Diagnostician: Ariel Grace MD, | | | PhDPathologistDiagnostician: Diego Mejia | | | MDPathologistDiagnostician: Gayatri Hatch MDPathologistElectronically | | | Signed 12/18/2019 | | + + + + +---------+ + + | Performing | Address | City/State/Zipcode | Phone Number | | Organization | | | | + +---------+ + + | [facility] | | | | | [facility] | | | | + +---------+ + + CBC no Differential (11/26/2019 7:07 AM PDT) + + + + + + | Component | Value | Ref Range | Performed | Pathologist | | | | | At | Signature | + + + + + + | WBC | 8.16 | 3.80 - 11.00 | [facility] | | | | | K/uL | LABORATORY | | + + + + + + | Red Blood | 4.29 | 3.70 - 5.10 | [facility] | | | Cells | | M/uL | LABORATORY | | + + + + + + | Hemoglobin | 14.1 | 11.3 - 15.5 | [facility] | | | | | g/dL | LABORATORY | | + + + + + + | Hematocrit | 41.9 | 34.0 - 46.0 % | [facility] | | | | | | LABORATORY | | + + + + + + | MCV | 97.7 | 80.0 - 100.0 fl | [facility] | | | | | | LABORATORY | | + + + + + + | MCH | 32.9 | 27.0 - 34.0 pg | [facility] | | | | | | LABORATORY | | + + + + + + | MCHC | 33.7 | 32.0 - 35.5 | [facility] | | | | | g/dL | LABORATORY | | + + + + + + | RDW-SD | 51.8 | 37 - 53 fl | [facility] | | | | | | LABORATORY | | + + + + + + | Platelet | 243 | 150 - 400 K/uL | [facility] | | | Count | | | LABORATORY | | + + + + + + | MPV | 9.8Comment: NO NORMAL | fl | ISAIAS | | | | RANGE ESTABLISHEDTesting | | LABORATORY | | | | performed at [facility] [place];[address] | | | | | | [address];[place] | | | | | | [address] | | | | + + + + + + + + | Specimen | + + | Blood | + + + + + + + | Performing | Address | City/State/Zipcode | Phone Number | | Organization | | | | + + + + + | [facility] | [address] | [place] [address] | [phone] | + + + + + Protime INR (11/26/2019 7:07 AM PDT) + + + + + + | Component | Value | Ref Range | Performed | Pathologist | | | | | At | Signature | + + + + + + | INR | 1.0Comment: REFERENCE | | [facility] | | | | RANGE:0.9 - 1.2 | | LABORATORY | | | | NON-ANTICOAGULATED2.0 | | | | | | - 3.0 ALL OTHER | | | | | | THERAPEUTIC | | | | | | INDICATIONS2.5 - 3.5 | | | | | | MECHANICAL HEART VALVES, | | | | | | RECURRENT OR SYSTEMIC | | | | | | EMBOLISMTesting | | | | | | performed at [facility] [place];[address] | | | | | | [address];[place], [place] | | | | | | [address] | | | | + + + + + + + + | Specimen | + + | Blood | + + + + + + + | Performing | Address | City/State/Zipcode | Phone Number | | Organization | | | | + + + + + | [facility] | [address] | [place] [address] | [phone] | + + + + + documented in this encounter Visit Diagnoses + + | Diagnosis | + + | Incidental pulmonary nodule, greater than or equal to 8mm Solitary pulmonary nodule | + + | Postprocedural pneumothorax Iatrogenic pneumothorax | + + | Essential hypertension Unspecified essential hypertension | + + | Chronic obstructive pulmonary disease, unspecified COPD type (HCC) | + + documented in this encounter Admitting Diagnoses + + | Diagnosis | + + | Incidental pulmonary nodule, greater than or equal to 8mm Solitary pulmonary nodule | + + documented in this encounter Administered Medications + +--------+ +------+------+------+ | Medication Order | MAR | Action | Dose | Rate | Site | | | Action | Date | | | | + +--------+ +------+------+------+ | amLODIPine (NORVASC) tablet 5 | Given | 11/27/19 | 5 mg | | | | mg 5 mg, Oral, DAILY, First dose | | 20 9:53 | | | | | on Lissa 11/27/19 at 0900 | | AM PDT | | | | + +--------+ +------+------+------+ +---+---+ | | | +---+---+ + +-------+ +-------+---+---+ | atorvaSTATin (LIPITOR) tablet | Given | 11/26/19 | 20 mg | | | | 20 mg 20 mg, Oral, NIGHTLY, | | 20 9:57 | | | | | First dose on Sun11/26/19 at 2100 | | PM PDT | | | | + +-------+ +-------+---+---+ +---+---+ | | | +---+---+ + +-------+ +-------+---+---+ | DULoxetine (CYMBALTA) DR | Given | 11/27/19 | 40 mg | | | | capsule 40 mg 40 mg, Oral, | | 20 9:53 | | | | | DAILY, First dose on Sun11/26/19 | | AM PDT | | | | | at 1530, Do not open capsule., | | | | | | + +-------+ +-------+---+---+ +-------+ +-------+---+---+ | Given | 11/26/19 | 40 mg | | | | | 20 3:25 | | | | | | PM PDT | | | | +-------+ +-------+---+---+ + +---+ | | | + +---+ | enoxaparin (LOVENOX) 40 mg/0.4 | | | mL injection 40 mg 40 mg, | | | Subcutaneous, EVERY 24 HOURS | | | (Daily), First dose on Lissa | | | 11/27/19 at 1500 | | + +---+ | | | + +---+ + +-------+ +--------+---+---+ | fentaNYL (PF) injection 25 mcg | Given | 11/26/19 | 25 mcg | | | | 25 mcg, Intravenous, PRN, Pain, | | 20 9:27 | | | | | administer q 2 mins to maintain | | AM PDT | | | | | moderate sedation, Starting Wed | | | | | | | 11/26/19 at 0737 | | | | | | + +-------+ +--------+---+---+ +---+---+ | | | +---+---+ + +-------+ +--------+---+---+ | fentaNYL (PF) injection | Given | 11/26/19 | 50 mcg | | | | Intravenous, PRN, Starting Wed | | 20 8:26 | | | | | 11/26/19 at 0826 | | AM PDT | | | | + +-------+ +--------+---+---+ +---+---+ | | | +---+---+ + +-------+ +--------+---+---+ | fentaNYL (PF) injection | Given | 11/26/19 | 50 mcg | | | | Intravenous, PRN, Starting Wed | | 20 9:09 | | | | | 11/26/19 at 0857 | | AM PDT | | | | + +-------+ +--------+---+---+ +-------+ +--------+---+---+ | Given | 11/26/19 | 50 mcg | | | | | 20 8:57 | | | | | | AM PDT | | | | +-------+ +--------+---+---+ +---+---+ | | | +---+---+ + +-------+ +--------+---+---+ | fentaNYL (PF) injection | Given | 11/26/19 | 50 mcg | | | | Intravenous, PRN, Starting Wed | | 20 2:37 | | | | | 11/26/19 at 1422 | | PM PDT | | | | + +-------+ +--------+---+---+ +-------+ +--------+---+---+ | Given | 11/26/19 | 50 mcg | | | | | 20 2:22 | | | | | | PM PDT | | | | +-------+ +--------+---+---+ + +---+ | | | + +---+ | hydrALAZINE (APRESOLINE) | | | injection 10 mg 10 mg, | | | Intravenous, EVERY 4 HOURS PRN, | | | SBP>160, Starting 11/26/19 at | | | 1424 | | + +---+ | | | + +---+ + +-------+ +--------+---+---+ | HYDROmorphone (DILAUDID) | Given | 11/26/19 | 0.5 mg | | | | injection 0.5-1 mg 0.5-1 mg, | | 20 3:50 | | | | | Intravenous, EVERY 3 HOURS PRN, | | PM PDT | | | | | Severe Pain, Pain, Starting Wed | | | | | | | 11/26/19 at 1534 | | | | | | + +-------+ +--------+---+---+ +---+---+ | | | +---+---+ + +-------+ +-------+---+---+ | lisinopril (PRINIVIL, ZESTRIL) | Given | 11/27/19 | 20 mg | | | | tablet 20 mg 20 mg, Oral, DAILY, | | 20 9:55 | | | | | First dose on Lissa 11/27/19 at | | AM PDT | | | | | 0900 | | | | | | + +-------+ +-------+---+---+ +---+---+ | | | +---+---+ + +-------+ +------+---+---+ | melatonin tablet 3 mg 3 mg, | Given | 11/26/19 | 3 mg | | | | Oral, NIGHTLY PRN, Insomnia, | | 20 9:57 | | | | | Starting 11/26/19 at 1421 | | PM PDT | | | | + +-------+ +------+---+---+ +---+---+ | | | +---+---+ + +-------+ +--------+---+---+ | methocarbamol (ROBAXIN) tablet | Given | 11/26/19 | 750 mg | | | | 750 mg 750 mg, Oral, EVERY 8 | | 20 3:29 | | | | | HOURS PRN, Muscle spasms, | | PM PDT | | | | | Starting 11/26/19 at 1424 | | | | | | + +-------+ +--------+---+---+ +---+---+ | | | +---+---+ + +-------+ +-------+---+---+ | metoprolol succinate | Given | 11/27/19 | 50 mg | | | | (TOPROL-XL) ER tablet 50 mg 50 | | 20 9:55 | | | | | mg, Oral, DAILY, First dose on | | AM PDT | | | | | Lissa 11/27/19 at 0900, Tablet may | | | | | | | be cut where scored but do not | | | | | | | crush., | | | | | | + +-------+ +-------+---+---+ +---+---+ | | | +---+---+ + +-------+ +------+---+---+ | midazolam (VERSED) 1 mg/mL | Given | 11/26/19 | 1 mg | | | | injection Intravenous, PRN, | | 20 8:27 | | | | | Starting 11/26/19 at 0827 | | AM PDT | | | | + +-------+ +------+---+---+ +---+---+ | | | +---+---+ + +-------+ +------+---+---+ | midazolam (VERSED) 1 mg/mL | Given | 11/26/19 | 1 mg | | | | injection Intravenous, PRN, | | 20 2:37 | | | | | Starting 11/26/19 at 1422 | | PM PDT | | | | + +-------+ +------+---+---+ +-------+ +------+---+---+ | Given | 11/26/19 | 1 mg | | | | | 20 2:22 | | | | | | PM PDT | | | | +-------+ +------+---+---+ +---+---+ | | | +---+---+ + +-------+ +------+---+---+ | oxyCODONE (ROXICODONE) tablet | Given | 11/27/19 | 5 mg | | | | 5-15 mg 5-15 mg, Oral, EVERY 3 | | 20 5:18 | | | | | HOURS PRN, Pain, Starting Wed | | PM PDT | | | | | 11/26/19 at 1421, If ineffective | | | | | | | or not tolerated, contact | | | | | | | prescriber, | | | | | | + +-------+ +------+---+---+ +-------+ +------+---+---+ | Given | 11/27/19 | 5 mg | | | | | 20 2:07 | | | | | | PM PDT | | | | +-------+ +------+---+---+ | Given | 11/27/19 | 5 mg | | | | | 20 10:09 | | | | | | AM PDT | | | | +-------+ +------+---+---+ +---+---+ | | | +---+---+ + +-------+ +-------+---+---+ | pantoprazole (PROTONIX) DR | Given | 11/27/19 | 40 mg | | | | tablet 40 mg 40 mg, Oral, DAILY | | 20 6:37 | | | | | BEFORE BREAKFAST, First dose on | | AM PDT | | | | | Lissa 11/27/19 at 0730, Indication: | | | | | | | GERD | | | | | | + +-------+ +-------+---+---+ +---+---+ | | | +---+---+ + +---------+ +---+ +---+ | sodium chloride 0.9% (NS) | New Bag | 11/27/19 | | 50 mL/hr | | | infusion at 50 mL/hr, | | 20 10:48 | | | | | Intravenous, CONTINUOUS, Starting | | AM PDT | | | | | 11/26/19 at 0930, OK to use | | | | | | | implantable port., Post-op/Phase | | | | | | | II | | | | | | + +---------+ +---+ +---+ +---------+ +---+ +---+ | New Bag | 11/26/19 | | 50 mL/hr | | | | 20 3:25 | | | | | | PM PDT | | | | +---------+ +---+ +---+ +---+---+ | | | +---+---+ + +-------+ +---------+---+---+ | tiotropium (SPIRIVA RESPIMAT) | Given | 11/27/19 | 2 puffs | | | | 2.5 mcg/puff inhaler 2 puff 2 | | 20 9:55 | | | | | puff, Inhalation, RT DAILY, First | | AM PDT | | | | | dose on [facility] 11/27/19 at 0900 | | | | | | + +-------+ +---------+---+---+ +---+---+ | | | +---+---+ documented in this encounter
--- OUTSIDE RECORDS SUMMARY | ~2020-03-27 | XMS | Encounter Summary ---
Demographics + + + | Address | [address] | | | [place] [address] | + + + | Home Phone | | + + + | Preferred Language | Unknown | + + + | Marital Status | Single | + + + | Mormon Affiliation | Unknown | + + + | Race | Unknown | + + + | Ethnic Group | Unknown | + + + Author + + + | Author | [facility] | | | and [place] | + + + | Organization | [facility] | | | and [...] Team Providers + +------+ + | Care Amusement Equipment Operator Name | Role | Phone | + +------+ + | Johnny Anguiano MD | PCP | | + +------+ + Reason for Visit + + + | Reason | Comments | + + + | Medication Refill | | + + + Encounter Details +--------+--------+ + + + | Date | Type | Department | Care Team | Description | +--------+--------+ + + + | 12/23/ | Refill | [facility] | [place], | Medication Refill | | 2019 | | PULMONOLOGY [address] | Kayy Boyd, | | | | | JASON GALLARDO | MD [address] | | | | | [facility] [place] | [place], | | | | | [address] | [place] [address] | | | | | [phone] | [phone] | | | | | | | | +--------+--------+ + + + Social History + +-------+ [...] | | | | | | [place] [address] | | | | | | [phone] | | | | | | | | +--------+---------+ + + + documented as of this encounter Visit Diagnoses + + | Diagnosis | + + | Chronic obstructive pulmonary disease, unspecified COPD type (HCC) | + + documented in this encounter"
--- OUTSIDE RECORDS SUMMARY | ~2020-03-27 | XMS | Encounter Summary ---
Demographics + + + | Address | [address] | | | [place] [address] | + + + | Home Phone | | + + + | Preferred Language | Unknown | + + + | Marital Status | Single | + + + | Congregation Affiliation | Unknown | + + + | Race | Unknown | + + + | Ethnic Group | Unknown | + + + Author + + + | Author | [facility] | | | and [place] | + + + | Organization | [facility] | | | and [...] Team Providers + +------+ + | Care Mechatronics Technician Name | Role | Phone | + [...] + + | 02/15/ | Virtual | [facility] | Ana Becerra DO | Coronary artery | | 2019 | Office | [facility] [place] | [address] | disease involving | | | Visit | [address] | [place], [place] | cheesh-na coronary | | | | [place], [place] | [address] | artery of cheesh-na | | | | [address] | | heart without angina | | | | [phone] | | pectoris; | | | | [...] PM PDT Clinical discussion length: 11-20 min ([id number]) Patient has not been seen in office within the past 7 days, and outcome of this call is not to recommend soonest available office visit. Participants: Patient Participant verbally confirmed the choice to initiate care by, and consents to receive care by Telephone. Participant is currently at home [facility] Cardiology Cardiology Follow Note Reason for Consultation: CAD History Obtained From: patient HISTORY OF PRESENT ILLNESS: Cardiac Problem List CAD history of stent in 2007 [place] History of brain aneurysm s/p craniotomy [...] GUIDED BIOPSY LUNG OR MEDIASTINUM - Location: [facility] [place] CT TRACHEOSTOMY CLOSURE VAGINA SURGERY MEDICATIONS Home [...] Father COPD Father - Father had several VA/valve replacement- CAD started in his 50s SOCIAL [...] file Gets together: Not on file Attends [employer] service: Not on file Active member of [...] 1. CAD history of stent in 2007 [facility] 2. History of brain aneurysm s/p craniotomy in 2000 3. HTN 4. Fibromyalgia 5. RA 6. COPD 7. Lung cancer 8. History of tracheostomy due to severe tooth infection 9. Tobacco habituation -The patient is a 64-year-old female who presents to the cardiology office for follow up. She reports that she had stents placed in [facility] in 2007. She had a recent echocar [...] | 06/10/ | Office | Pulmonology | [facility], | | | 2019 | Visit | | Kayy Boyd, | | | | | | MD [address] | | | | | | [place], | | | | | | [place] [address] | | | | | | [phone] | | | | | | | | +--------+---------+ + + + documented as of this encounter Visit Diagnoses + + | Diagnosis | + + | Coronary artery disease involving cheesh-na coronary artery of cheesh-na heart without | | angina pectoris | + + | Hypertension, unspecified type | + + | Tobacco abuse Tobacco use disorder | + + documented in this encounter
--- OUTSIDE RECORDS SUMMARY | ~2020-03-27 | XMS | Encounter Summary ---
Demographics + + + | Address | [address] | | | [place] [address] | + + + | Home Phone | | + + + | Preferred Language | Unknown | + + + | Marital Status | Single | + + + | Mormonism Affiliation | Unknown | + + + | Race | Unknown | + + + | Ethnic Group | Unknown | + + + Author + + + | Author | [facility] | | | and [place] | + + + | Organization | [facility] | | | and [place] [...] Team Providers + +------+ + | Care Animal Caretaker Supervisor Name | Role | Phone | + [...] + + + | Closed | | | Diagnoses | Bassam | [facility] | | | | | Incidental | Kayy [facility] | | | | | pulmonary | MD Deb | [address] | | | | | nodule, | [address] | | | | | greater than | [address] | [place] | | | | | or equal to | [address] | [address] | | | | | 8mm | [place], [place] | Phone: | | | | | Procedures | [address] | [phone] | | | | | CT Chest wo | Phone: | Fax: | | | | | Contrast | [phone] | [phone] | | | | | | Fax: | | | | | | | [phone] | | +--------+--------+ + + + + [...] | | | | | (shortness | [address] | MD Deb | | | | | of breath) | Gaye Overton | [address] | | | | | RIGGS (dyspnea | [place] | [address] | | | | | on | [place] | [place], [place] | | | | | exertion) | [address] | [address] Phone: | | | | | | Phone: | [phone] | | | | | | [phone] | Fax: | | | | | | Fax: | [phone] | | | | | | [phone] | | +--------+--------+ + + + + Encounter Details +--------+---------+ + + + | Date | Type | Department | Care Team | Description | +--------+---------+ + + + | 11/12/ | Office | [facility] | Bassam, | Chronic obstructive | | 2019 | Visit | PULMONOLOGY [address] | Kayy Boyd, | pulmonary disease, | | | | [address] | [address] | unspecified COPD | | | | [place], [place] | [address], | type (HCC) (Primary | | | | [address] | [place] [address] | Dx); Personal | | | | [phone] | [phone] | history of tobacco | | | | | | use, presenting | | | | | | hazards to health; | | | | | | Chronic allergic | | | | | | rhinitis; Hiatal | | | | | | hernia; Incidental | | | | | | pulmonary nodule, | | | | | | greater than or | | | | | | equal to 8mm | +--------+---------+ + + + Social History + +-------+ [...] + + + | Blood Pressure | 126/75 | 11/12/2019 11:06 AM | | | | | PST | | + + + + + | Pulse | 65 | 11/12/2019 11:06 AM | | | | | PST | | + + + + + | Temperature | 36.9 C (98.4 F) | 11/12/2019 11:06 AM | | | | | PST | | + + + + + | Respiratory Rate | - | - | | + + + + + | Oxygen Saturation | 96% | 11/12/2019 11:06 AM | | | | | PST | | + + + + + | Inhaled Oxygen | - | - | | | Concentration | | | | + + + + + | Weight | 63 kg (139 lb) | 11/12/2019 11:06 AM | | | | | PST | | + + + + + | Height | - | - | | + + + + + | Body Mass Index | - | - | | + + + + + documented in this encounter Patient Instructions Patient Instructions Kayy Banegas MD - 11/12/2019 11:00 AM PST1. May start using Flonase or Rhinocort daily (spray into each nostril) for your nasal drainage. 2. May take an oral antihistamine like Loratadine 10 mg or Cetirizine 10 mg daily for sympt oms of nasal allergies. documented in this encounter Progress Notes Kayy Banegas MD - 11/12/2019 11:00 AM PST Subjective Patient ID: Tammi Laura is a 64 y.o. female with CAD post PCI, HPL, history of tracheost tico due to a severe tooth infection, history of RA (untreated currently but used to be on Or encia), active smoker, suspected COPD here to establish [...] cholecystectomy and possibly a hiatal hernia repair. SOCIAL HISTORY She is an active smoker, 1/2 to 1 pack a day for 40 years. 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 She used to live in [place]. She [...] All other systems reviewed and are negative. History reviewed. No pertinent past medical history. History reviewed. No pertinent surgical history. Objective BP 126/75 | Pulse 65 | Temp 36.9 C (98.4 F) (Oral) | Wt 63 kg (139 lb) | SpO2 96% Physical Exam Vital signs reviewed. Oxygen saturation noted at 96% on ambient air GENERAL: pleasant, cooperative, oriented, not in distress HEENT: pink conjunctiva, anicteric sclerae, moist oral mucosae and without any lesions, nor mal appearing nasal mucosae; no JVD; MALAMPATTI 2; no thyromegaly; no cervicolymphadenopathi es; post nasal drainage present CVS: PMI non displaced, NRRR, S1 and S2, no murmurs/gallops/rubs CHEST: Examination of the chest was unremarkable. There were no bony deformities, no asymme try, and no other abnormalities. LUNGS: Normal effort, Equal in expansion, resonant to percussion, prolonged expiratory phas e, no wheezes/rales/rhonchi ABDOMEN: Flat abdomen, NABS, non-tender on palpation, Traube's space intact, liver span nor mal, no masses palpated EXTREMITIES: good distal pulses, no cyanosis, no edema, no clubbing, no nail abnormalities NEURO: awake and oriented, gait normal, no focal neurologic deficits LABORATORY AND IMAGING Pulmonary Function Test: None done FEV1 FVC FEV1/FVC TLC RV/TLC DLCO No imaging to review. Assessment /Plan 1. Chronic obstructive pulmonary disease, unspecified COPD type (HCC) I suspect that Ms Laura is short of breath because of undiagnosed and untreated COPD. I alec overton requested for a baseline PFT from [facility], and a CXR today. I have started her on S piriva daily and we have given instructions on how to use her new inhaler. Continue albutero l use as needed. I have strongly encouraged her to stop smoking -pls see below. - Pulmonary function test; Future - XR Chest PA and Lateral; Future - tiotropium (SPIRIVA HANDIHALER) 18 mcg inhalation capsule; Inhale contents of one capsule once daily (do not swallow capsules) Dispense: 30 capsule; Refill: 0 2. Personal history of tobacco use, presenting hazards to health I have suggested to start using the 21 mg nicotine patch, and as she cuts down on her consu mption, may decrease dose to 14 mg, and when only a few sticks a day, may further go down to 7 mg a day. She qualifies for CT lung screening due to long history of smoking and increase d risk for lung cancer. This was ordered as well. - CT Chest Lung Cancer Screening; Future 3. Chronic allergic rhinitis Start oral antihistamine and Flonase -instructions given. This may help reduce early AM sin o nasal drainage and cough. 4. Hiatal hernia May consider increasing Omeprazole dose to BID -have advised her to contact her PCP before doing this. Risk stratification requested for possible surgery -respiratory failure risk is at least a moderate due to active smoking and COPD. Continue with efforts at smoking cessation, and jacqueline ally should be smoke free prior to surgery. Continue present inhaler regimen. There is no ab solute contraindication for contemplated abdominal surgery. ADDENDUM: R LUNG OPACITY NOTED ON PLAIN IMAGING, SUSPECT MALIGNANT PROCESS. I WILL ORDER CT CHEST IN [facility]' STAT. WILL D/C LDCT. Thank you for allowing us to participate in this patient's care. A return visit has been re quested/scheduled in 3 weeks with Lorenza, and in 3 months with . The patient was instructed to call our clinic for any questions, and for any concerns regarding worsening dyspnea, cou gh or change in sputum production. We will see the patient sooner than the recommended follo w up date, if with any worsening of symptoms. Kayy Banegas MD Pulmonary and Critical Care Medicine [facility] [address] , [place] [address] documente d in this encounter Miscellaneous Notes Addendum Note - Kayy Banegas MD - 11/12/2019 11:00 AM PST Addended by: KAYY BURNS on: 11/12/2019 03:17 PM Modules accepted: Orders documen felicia in [...] | | | | | | [place] [id number] | | | | | | [phone] | | | | | | | | +--------+---------+ + + + + +---------+--------+ + + | Name | Type | Priori | Associated Diagnoses | Order Schedule | | | | ty | | | + +---------+--------+ + + | CT Chest wo Contrast | Imaging | STAT | Incidental | Expected: | | | | | pulmonary nodule, | 11/12/2019, Expires: | | | | | greater than or | 11/12/2020 | | | | | equal to 8mm | | + +---------+--------+ + + documented as of this encounter Results XR Chest PA and Lateral (11/12/2019 12:17 PM PST) + + | Specimen | + + | | + + + + + | Impressions | Performed At | + + + | Rounded masslike density in the right perihilar region further | [facility] | | evaluation with CT scan recommended Signed by: Chevy | | | Roe Link Sign Date/Time: [...] + | Antoine, Rad Results In - 11/12/2019 1:32 PM PST | | CHEST [...] | | | | Signed by: Fariba Reece Dwane | | Sign Date/Time: 11/12/2019 1:29 PM [...] (HCC) - Primary | + + | Personal history of tobacco use, presenting hazards to health | + + | Chronic allergic rhinitis Allergic rhinitis, cause unspecified | + + | Hiatal hernia Diaphragmatic hernia without mention of obstruction or gangrene | + + | Incidental pulmonary nodule, greater than or equal to 8mm Solitary pulmonary nodule | + + documented in this encounter"
--- OUTSIDE RECORDS SUMMARY | ~2020-03-27 | XMS | Encounter Summary ---
Demographics + + + | Address | [address] | | | [place] [address] | + + + | Home Phone | | + + + | Preferred Language | Unknown | + + + | Marital Status | Single | + + + | Lutheran Affiliation | Unknown | + + + | Race | Unknown | + + + | Ethnic Group | Unknown | + + + Author + + + | Author | [facility] | | | and [place] | + + + | Organization | [facility] | | | and [place] [...] Team Providers + +------+ + | Care Oil Well Perforator Operator Name | Role | Phone | + +------+ + | Johnny Anguiano MD | PCP | | + +------+ + Encounter Details +--------+ + + + + | Date | Type | Department | Care Team | Description | +--------+ + + + + | 11/16/ | Telephone | [facility] | Alexandra Varela, | | | 2019 | | [facility] | Technologist | | | | | [address] | | | | | | [place], [place] | | | | | | [address] | | | | | | [phone] | | | +--------+ + + + [...] | | | | | | [place] [address] | | | | | | [phone] | | | | | | | | +--------+---------+ + + + documented as of this encounter Visit Diagnoses Not on filedocumented in this encounter"
--- OUTSIDE RECORDS SUMMARY | ~2020-03-27 | XMS | Encounter Summary ---
Demographics + + + | Address | [address] | | | [place] [address] | + + + | Home Phone | | + + + | Preferred Language | Unknown | + + + | Marital Status | Single | + + + | Sikhism Affiliation | Unknown | + + + | Race | Unknown | + + + | Ethnic Group | Unknown | + + + Author + + + | Author | [facility] | | | and [place] | + + + | Organization | [facility] | | | and [...] Team Providers + +------+ + | Care Armature Bander Name | Role | Phone | + [...] | | | | Incidental | Kayy [facility] | | | | | pulmonary | MD Deb | [address] | | | | | nodule, | [address] | | | | | greater than | [address] | [place] | | | | | or equal to | [address] | [address] | | | | | 8mm | [place], [place] | Phone: | | | | | Procedures | [address] | [phone] | | | | | CT Chest wo | Phone: | Fax: | | | | | Contrast | [phone] | [phone] | | | | | | Fax: | | | | | | | [phone] | | +--------+--------+ + + + + [...] | | | | | (shortness | [address] | MD Deb | | | | | of breath) | Gaye Overton | [address] | | | | | RIGGS (dyspnea | [place] | [address] | | | | | on | [place] | [place], [place] | | | | | exertion) | [address] | [address] Phone: | | | | | | Phone: | [phone] | | | | | | [phone] | Fax: | | | | | | Fax: | [phone] | | | | | | [phone] | | +--------+--------+ + + + + Encounter Details +--------+---------+ + + + | Date | Type | Department | Care Team | Description | +--------+---------+ + + + | 11/12/ | Office | [facility] | Bassam, | Chronic obstructive | | 2019 | Visit | PULMONOLOGY [address] | Kayy Boyd, | pulmonary disease, | | | | [address] | [address] | unspecified COPD | | | | [place], [place] | [address], | type (HCC) (Primary | | | | [address] | [place] [address] | Dx); Personal | | | | [phone] | [phone] | history of tobacco | | | [...] 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 She used to live in [place]. She [...] overton requested for a baseline PFT from [facility], and a CXR today. I have [...] PROCESS. I WILL ORDER CT CHEST IN [facility]' STAT. WILL D/C LDCT. Thank you for [...] Banegas MD Pulmonary and Critical Care Medicine [facility] [address] , [place] [address] documente d in this encounter Miscellaneous Notes [...] | | | | | | [place] [address] | | | | | | [phone] | | | | | | | [...]
--- OUTSIDE RECORDS SUMMARY | ~2020-03-27 | XMS | Encounter Summary ---
Demographics + + + | Address | [address] | | | [place] [address] | + + + | Home Phone | | + + + | Preferred Language | Unknown | + + + | Marital Status | Single | + + + | Hindu Affiliation | Unknown | + + + | Race | Unknown | + + + | Ethnic Group | Unknown | + + + Author + + + | Author | [facility] | | | and [place] | + + + | Organization | [facility] | | | and [place] [...] Team Providers + +------+ + | Care Dye Weigher Name | Role | Phone | + +------+ + | Johnny Anguiano MD | PCP | | + +------+ + Encounter Details +--------+ + + + + | Date | Type | Department | Care Team | Description | +--------+ + + + + | 11/24/ | Telephone | [facility] | Roxanna Collado RN | | | 2019 | | [facility] [address] | | | | | | [address] | | | | | | [place] | | | | | | [address] | | | | | | [phone] | | | +--------+ + + + [...] | | | | | | [place] [address] | | | | | | [phone] | | | | | | | | +--------+---------+ + + + documented as of this encounter Visit Diagnoses Not on filedocumented in this encounter"
--- OUTSIDE RECORDS SUMMARY | ~2020-03-27 | XMS | Encounter Summary ---
Demographics + + + | Address | [address] | | | [place] [address] | + + + | Home Phone | | + + + | Preferred Language | Unknown | + + + | Marital Status | Single | + + + | Caodaism Affiliation | Unknown | + + + | Race | Unknown | + + + | Ethnic Group | Unknown | + + + Author + + + | Author | [facility] | | | and [place] | + + + | Organization | [facility] | | | and [...] Team Providers + +------+ + | Care Automatic Trimming Sewer Name | Role | Phone | + [...] + + | 12/03/ | Telephone | [facility] | Linda Wray | DME (N oxygen ) | | 2020 | | [address] | T, RN | | | | | [place], [place] | | | | | | [address] | | | | | | [phone] | | | +--------+ + + + [...] or oxygen DOS 11/27/19, faxed back to [facility] for processing. documented in this encounter Plan [...] | | | | | | [place] [address] | | | | | | [phone] | | | | | | | | +--------+---------+ + + + documented as of this encounter Visit Diagnoses Not on filedocumented in this encounter"
--- OUTSIDE RECORDS SUMMARY | ~2020-03-27 | XMS | Encounter Summary ---
Demographics + + + | Address | [address] | | | [place] [address] | + + + | Home Phone | | + + + | Preferred Language | Unknown | + + + | Marital Status | Single | + + + | Alevism Affiliation | Unknown | + + + | Race | Unknown | + + + | Ethnic Group | Unknown | + + + Author + + + | Author | [facility] | | | and [place] | + + + | Organization | [facility] | | | and [place] [...] Team Providers + +------+ + | Care Lens Shaper Grinder Name | Role | Phone | + [...] | | | | | 8mm | [place], [place] | [address] | | | | | Procedures | [address] | Phone: | | | | | PET CT Skull | Phone: | [phone] | | | | | Base To Mid | [phone] | Fax: | | | | | Thigh | Fax: | [phone] | | | | | | [phone] | | +--------+--------+ + + + + Reason for Visit Diagnostic/Screening (Emergency) +--------+--------+ + + + + [...] | | | nodule, | [address] | [address] | | | | | greater than | [address] | [address] | | | | | or equal to | [address] | [place], [place] | | | | | 8mm | [place], [place] | [address] | | | | | Procedures | [address] | Phone: | | | | | PET CT Skull | Phone: | [phone] | | | | | Base To Mid | [phone] | Fax: | | | | | Thigh | Fax: | [phone] | | | | | | [phone] | | +--------+--------+ + + + + Encounter Details +--------+ + + + + | Date | Type | Department | Care Team | Description | +--------+ + + + + | 11/17/ | Hospital | [facility] | Bassam, | Incidental pulmonary | | 2020 | Encounter | [facility] | Kayy Boyd, | nodule, greater | | | | MEDICINE 945 | [address] | than or equal to 8mm | | | | [address] | [address] [place], | | | | | [place] | [place] [address] | | | | | [address] | [phone] | | | | | [phone] | | | +--------+ + + + [...] | | | | | | [place] [address] | | | | | | [phone] | | | | | | | | +--------+---------+ + + + documented as of this encounter Procedures + +--------+ + + + | Procedure Name | Priori | Date/Time | Associated Diagnosis | Comments | | | ty | | | | + +--------+ + + + | PET CT SKULL BASE TO | STAT | 11/18/2019 | Incidental | Results for this | | MID THIGH | | 3:16 PM | pulmonary nodule, | procedure are in the | | | | PST | greater than or | results section. | | | | | equal to 8mm | | + +--------+ + + + | POC GLUCOSE (NON | Routin | 11/18/2019 | | Results for this | | ORD) | e | 1:26 PM | | procedure are in the | | | | PST | | results section. | + +--------+ + + + documented in this encounter Results PET CT Skull Base To Mid Thigh (11/18/2019 3:16 PM PST) + + | Specimen | + + | | + + + + + | Impressions | Performed At | + + + | Summary of Target Lesions: 1. Lobulated spiculated mass in the | [facility] | | posterolateral right lower lobe 80 measuring 2.3 x 1.9 cm, SUV | | | 11.5. 2. Posterior right upper lobe nodule 52 measuring 4 mm, SUV | | | 1.0. 3. Anterior right upper lobe nodule 62 measuring 5 mm, SUV | | | [...] posterolateral right lower lobe 4/80 | | | measuring 2.3 x 1.9 cm, SUV 11.5. Smaller pulmonary nodules as | | | follows: 1. Posterior right upper lobe 4/52 measuring 4 mm, SUV 1.0. | | | 2. Posterior left upper lobe near the major fissure 4/57 measuring 3 | | | mm, no uptake. 3. Anterior right upper lobe 4/62 measuring 5 mm, SUV | | | 1.4. 4. Posterolateral right upper lobe 4/68 measuring 4 mm, no | | | uptake. 5. Posterolateral right upper lobe 8 x 6 mm cavitary lucency | | | with a slightly irregular wall 4/66, probably due to bleb, no uptake. | | | 6. Multiloculated bleb posterior left upper lobe 4/62 measuring 11 x | | | 8 [...] posterolateral right lower lobe 80 | | measuring 2.3 x 1.9 cm, SUV 11.5. | | Smaller pulmonary nodules as follows: | | 1. Posterior right upper lobe 4/52 measuring 4 mm, SUV 1.0. | | 2. Posterior left upper lobe near the major fissure /57 measuring 3 | | mm, no uptake. | | 3. Anterior right upper lobe /62 measuring 5 mm, SUV 1.4. | | 4. Posterolateral right upper lobe /68 measuring 4 mm, no uptake. | | 5. Posterolateral right upper lobe 8 x 6 mm cavitary lucency with a | | slightly irregular wall 66, probably due to bleb, no uptake. | | 6. Multiloculated bleb posterior left upper lobe /62 measuring 11 x 8 | | mm, no uptake. | | | | Mediastinum: No significant pericardial, great vessel, or esophageal | | abnormality. No mediastinal mass. | | Lymph Nodes: Right precarinal lymph node measuring 12 x 6 mm, SUV | [...] the posterolateral right lower lobe | | 4/80 measuring 2.3 x 1.9 cm, SUV 11.5. [...] | | | + +---------+ + + POC Glucose (11/18/2019 1:26 PM PST) + + + + + + | Component | Value | Ref Range | Performed | Pathologist | | | | | At | Signature | + + + + + + | Glucose, | 86Comment: Testing | 65 - 99 mg/dL | [facility] | | | POC | performed at [facility];[address] | | [address]AT[address] | | | | [address];[place], [place] | | | | | | [address] | | | | + + + + + + + + | Specimen | + + | | + + + + + + + | Performing | Address | City/State/Zipcode | Phone Number | | Organization | | | | + + + + + | [facility] | [address] | [place] [address] | [phone] | + + + + + documented in this encounter Visit Diagnoses + + | Diagnosis | + + | Incidental pulmonary nodule, greater than or equal to 8mm Solitary pulmonary nodule | + + documented in this encounter Administered Medications + +--------+ + +------+------+ | Medication Order | MAR | Action | Dose | Rate | Site | | | Action | Date | | | | + +--------+ + +------+------+ | fluorine-18 FDG injection 12 | Given | 11/18/19 | 13.9 | | | | millicurie 12 millicurie, | | 20 1:30 | millicur | | | | Intravenous, ONCE, 11/18/19 at | | PM PST | ies | | | | 1345, For 1 dose | | | | | | + +--------+ + +------+------+ +---+---+ | | | +---+---+ documented in this encounter"
--- OUTSIDE RECORDS SUMMARY | ~2020-03-27 | XMS | Encounter Summary ---
Demographics + + + | Address | [address] | | | [place] [address] | + + + | Home Phone | | + + + | Preferred Language | Unknown | + + + | Marital Status | Single | + + + | Mormon Affiliation | Unknown | + + + | Race | Unknown | + + + | Ethnic Group | Unknown | + + + Author + + + | Author | [facility] | | | and [place] | + + + | Organization | [facility] | | | and [...] Team Providers + +------+ + | Care Star Route Mail Driver Name | Role | Phone | + [...] + + | 12/22/ | Telephone | [facility] | Clayton Howard DO | Referral | | 2020 | | NEUROSURGERY [address] | [address] | | | | | [address] | [address] | | | | | [place], [place] | [place] [address] | | | | | [address] | [phone] | | | | | [phone] | | | +--------+ + + + [...] - Myron Jeff - 12/23/2019 9:46 AM Nicolle, is calling regarding Referr al and would like a call back. Additional Call Details: Calling to schedule from Referral. Can be reached at Home Number listed in Chart. If this is a symptom based call, was patient offered triage? Not Applicable If this is a symptom based call and you were unable to immediately transfer the call to a tameka tang work order sorting clerk was caller made aware that if at any time she feels it is an emergency they sh ould call 911 or go to the nearest emergency room? not applicable documented in this encounter Plan of Treatment +--------+---------+ + + + | Date | Type | Specialty | Care Team | Description | +--------+---------+ + + + | 06/10/ | Office | Pulmonology | [facility], | | | 2019 | Visit | | Kayy Boyd, | | | | | | MD [address] | | | | | | [address] [place], | | | | | | [place] [address] | | | | | | [phone] | | | | | | | | +--------+---------+ + + + documented as of this encounter Visit Diagnoses Not on filedocumented in this encounter"
--- OUTSIDE RECORDS SUMMARY | ~2020-03-27 | XMS | Clinical Summary ---
Demographics + + + | Address | [address] | | | [place] [address] | + + + | Home Phone | | + + + | Preferred Language | Unknown | + + + | Marital Status | Single | + + + | Gnosticism Affiliation | Unknown | + + + | Race | Unknown | + + + | Ethnic Group | Unknown | + + + Author + + + | Author | [facility] | | | and [place] | + + + | Organization | [facility] | | | and [...] Team Providers + +------+ + | Care Collection Manager Name | Role | Phone | [...] | | | | | | type ([facility]) | | | | | [...] + + | Coronary artery disease involving [place] coronary artery of | 02/16/2020 | | sk[place] heart without angina pectoris | | + [...] | | | Visit | | | [place] coronary | | | | | | artery of [place] | | | | | | heart [...] | | 2019 | on | | Optical Scientist | overnight oximetry | | | | [...] whether | | | | | | [place] or | | | | | | [...] | | | | | | [place] [address] | | | | | | [phone] | | | | | | | [...] whether | | | | | | [place] or | | | | | | [...] | [employer] | MODA | [id number] | 08/05/ | [phone] | | Medica | | MEDICAID HMO | HEALTH | | 2019-P | 1 | | id | | | MDCD | | resent | | | | | | [place]MO [place] | | | | | | + +--------+ +--------+ +---------+--------+ | [employer] | MODA | [id number] | | [phone] | | Medica | | MEDICAID HMO [...] | 1955 | [phone] | [place] [address] | | | birgit | | | 0 (Home) | | + +--------+ +--------+ + + | Tammi Laura | Person | Self | [birth year] | [address] | | | al/Fam | | 1955 | [phone] | [place] [address] | | | birgit | | | 0 (Home) | | + +--------+ +--------+ + + Advance Directives + + + + + | Type | Date Recorded | Patient | Explanation | | | | Exercise Manager | | + + + + + | Power of | | | | | Mounting Machine Operator | | | | + + + [...]
--- OUTSIDE RECORDS SUMMARY | ~2020-03-27 | XMS | Encounter Summary ---
Demographics + + + | Address | [address] | | | [place] [address] | + + + | Home Phone | | + + + | Preferred Language | Unknown | + + + | Marital Status | Single | + + + | Buddhism Affiliation | Unknown | + + + | Race | Unknown | + + + | Ethnic Group | Unknown | + + + Author + + + | Author | [facility] | | | and [place] | + + + | Organization | [facility] | | | and [place] | [...] Team Providers + +------+ + | Care Linux Kernel Engineer Name | Role | Phone | + +------+ + | Ruben An | PCP | | + +------+ + Encounter Details +--------+ + + + + | Date | Type | Department | Care Team | Description | +--------+ + + + + | 11/12/ | Hospital | [facility] | Bassam, | Chronic obstructive | | 2020 | Encounter | [facility] | Kayy Boyd, | pulmonary disease, | | | | [address] | [address] | unspecified COPD | | | | [address] | [place], | type (HCC) | | | | [address] | [place] [address] | | | | | [phone] | [phone] | | | | | | | [...] | | | | | | type ([facility]) | | | | | | + [...] | | | | | | [place] [address] | | | | | | [phone] | | | | | | | [...]
--- OUTSIDE RECORDS SUMMARY | ~2020-03-27 | XMS | Encounter Summary ---
Demographics + + + | Address | [address] | | | [place] [address] | + + + | Home Phone | | + + + | Preferred Language | Unknown | + + + | Marital Status | Single | + + + | Jewish Affiliation | Unknown | + + + | Race | Unknown | + + + | Ethnic Group | Unknown | + + + Author + + + | Author | [facility] | | | and [place] | + + + | Organization | [facility] | | | and [place] [...] Team Providers + +------+ + | Care Rotary Drum Dyer Name | Role | Phone | + +------+ + | Johnny Anguiano MD | PCP | | + +------+ + Reason for Visit +---------+--------+ + | Reason | Onset | Comments | | | Date | | +---------+--------+ + | Imaging | 02/09/ | | | | 2020 | | +---------+--------+ + Encounter Details +--------+ + + + + | Date | Type | Department | Care Team | Description | +--------+ + + + + | 02/09/ | Telephone | [facility] | Clayton Howard DO | Imaging | | 2019 | | NEUROSURGERY [address] | [address] | | | | | [address] | [address] | | | | | [place], [place] | [place] [address] | | | | | [address] | [phone] | | | | | [phone] | | | +--------+ + + + [...] this encounter Miscellaneous Notes Telephone Encounter - Christen Root RN - 02/11/2020 10:07 AM PDTSpoke with Ema dolan, provider at [facility]. She states patient is positive for lung cancer. Patient had a scan completed in 11/13/19, patient has 2 new nodules one on the right forehead and one on the right side nasal canal. Ema concerned may be new cancer and would like to order a head CT since patient unable to have MRI. Ema wanted to know if Dr. Howard orders them with or without contrast. Informed her his not says with and without. Ema will order the updated imaging and will make sure Dr. Howard and the oncologist gets updated imaging. Elec tronically signed by Christen Root RN at 02/11/2020 10:14 AM PDTTelephone Encounter - Pura Duvall - 02/11/2020 9:03 AM Martir, is calling again for Imaging and would like a call back. Additional Call Details: Requesting call back regarding Imaging that needs to be done for this patient. She is needing to know if imaging needs to be done with our without contrast. Please contact back at [phone] elephone Encounter - Myron Garcia - 02/10/2020 1:05 PM Martir Brothers, is calling regarding Imaging and would like a call back. Additional Call Details: Ema Brothers, a Provider from [facility], is needing a c all back in regards to this mutual paitent and Ema Brothers wanting to order Imaging Orde rs for this Oncology patient. Ema can be reached at [phone] If this is a symptom based call, was patient offered triage? Not Applicable If this is a symptom based call and you were unable to immediately transfer the call to a tameka tang sludge control operator was caller made aware that if at [...] [place], | | | | | | [place] [address] | | | | | | [phone] | | | | | | | | +--------+---------+ + + + documented as of this encounter Visit Diagnoses Not on filedocumented in this encounter"
--- OUTSIDE RECORDS SUMMARY | ~2020-03-27 | XMS | Encounter Summary ---
Demographics + + + | Address | [address] | | | [place] [address] | + + + | Home Phone | | + + + | Preferred Language | Unknown | + + + | Marital Status | Single | + + + | Uatsdin Affiliation | Unknown | + + + | Race | Unknown | + + + | Ethnic Group | Unknown | + + + Author + + + | Author | [facility] | | | and [place] | + + + | Organization | [facility] | | | and [place] [...] Team Providers + +------+ + | Care Pacs Specialist Name | Role | Phone | + [...] | | wo Contrast | B | [address] | | | | | | [place], | Phone: | | | | | | [place] [address] | [phone] | | | | | | Phone: | Fax: | | | | | | [phone] | [phone] | | | | | | Fax: | | | | | | | [phone] | | + +--------+ + + + [...] | | bronchus or | [place], | [address] | | | | | lung (HCC) | [place] [address] | Phone: | | | | | | | [phone] | | | | | | | Fax: | | | | | | | [phone] | + +--------+ + + + + Encounter Details +--------+ + + + + | Date | Type | Department | Care Team | Description | +--------+ + + + + | 01/04/ | Virtual | [facility] | Clayton Howard DO | Frontal skull lesion | | 2020 | Office | NEUROSURGERY [address] | [address] | (Primary Dx) | | | Visit | [address] | [address] | | | | | [place] | [facility] [address] | | | | | [address] | [phone] | | | | | | | [...] 01/05/2020 3:00 PM PDT Neurosurgery Clinic Note [facility] [place] Provider: Clayton Howard DO Date : 01/05/2020 3:21 PM Referring Provider: Titi [place], * You have chosen to receive care through the use of telemedicine. Telemedicine enables [facility] care providers at different locations [...] 64 y.o. [facility] of newly diagnosed lung cancer with [...] GUIDED BIOPSY LUNG OR MEDIASTINUM - Location: [facility] [place] TRACHEOSTOMY CLOSURE VAGINA SURGERY No family [...] file Gets together: Not on file Attends episcopal service: Not on file Active member of [...] Placement Result Date: 11/26/[address]-guided 10 Swiss right chest tube placement. Signed by: Fariba [...] months with and w ithout contrast at [facility] to see if this lesion is enlarged [...] me at any time. Service was provided [id number] with the patient via interactive videoconferencing Total time (in minutes) 20 Clayton Howard D.O Board Certified Neurosurgeon / Chief of Neurosurgery [facility] / [facility] Office Parts of this document have been created with voice recognition software. Although I have p roofread the note, electrical continuity tester errors may still exist. documented in this [...] [place], | | | | | | [place] [address] | | | | | | [phone] | | | | | | | [...]
--- OUTSIDE RECORDS SUMMARY | ~2020-03-27 | XMS | Encounter Summary ---
Demographics + + + | Address | [address] | | | [place] [address] | + + + | Home Phone | | + + + | Preferred Language | Unknown | + + + | Marital Status | Single | + + + | Restoration Affiliation | Unknown | + + + | Race | Unknown | + + + | Ethnic Group | Unknown | + + + Author + + + | Author | [facility] | | | and [place] | + + + | Organization | [facility] | | | and [...] Team Providers + +------+ + | Care Health Care Facilities Inspector Name | Role | Phone | + [...] + + + | Authorized | | | Diagnoses | Hernan, | [facility] | | | | | | DO Ana [facility] | | | | | Atherosclero | [address] | | | | | sis of | [address] | [address] | | | | | coronary | [address] | [place], [place] | | | | | artery, | [place], [place] | [address] | | | | | angina | [address] | Phone: | | | | | presence | Phone: | [phone] | | | | | unspecified, | [phone] | Fax: | | | | | unspecified | Fax: | [phone] | | | | | vessel or | [phone] | | | | | | lesion type, | | | | | | | unspecified | | | | | | | whether | | | | | | | [place] or | | | | | | | transplanted | | | | | | | heart | | | | | | | Procedures | | | | | | | ECHO | | | | | | | Complete | | | + +--------+ + + + + Diagnostic/Screening (Routine) + +--------+ + + + + | Status | Reason | Specialty | Diagnoses / | Referred By | Referred To | | | | | Procedures | Contact | Contact | + +--------+ + + + + | Authorized | | | Diagnoses | Hernan, | [facility] | | | | | | DO Ana | [facility] | | | | | Atherosclero | [address] | | | | | sis of | [address] | [address] | | | | | coronary | [address] | [place], [place] | | | | | artery, | [place], [place] | [address] | | | | | angina | [address] | Phone: | | | | | presence | Phone: | [phone] | | | | | unspecified, | [phone] | Fax: | | | | | unspecified | Fax: | [phone] | | | | | vessel or | [phone] | | | | | | lesion type, | | | | | | | unspecified | | | | | | | whether | | | | | | | [place] or | | | | | | | transplanted | | | | | | | heart | | | | | | | Procedures | | | | | | | NM Nuclear | | | | | | | Stress Test | | | | | | | (Vasodilator | | | | | | | ) | | | + +--------+ + + + + Reason for Visit + + + | Reason | Comments | + + + | New Patient | NEW PATIENT | + + + Evaluate & Treat (Routine) + +--------+ + + + + | Status | Reason | Specialty | Diagnoses / | Referred By | Referred To | | | | | Procedures | Contact | Contact | + +--------+ + + + + | Authorized | | Cardiology | Diagnoses | Matilde, | Hernan, | | | | | | Clayton Hartman, | DO Ana | | | | | Atherosclero | [address] | [address] | | | | | tic heart | [address] | [address] | | | | | disease of | [place], | [place], [place] | | | | | [place] | [place] | [address] Phone: | | | | | coronary | [address] | [phone] | | | | | artery | Phone: | Fax: | | | | | without | [phone] | [phone] | | | | | angina | Fax: | | | | | | pectoris | [phone] | | | | | | Old | | | | | | | myocardial | | | | | | | infarction | | | | | | | Shortness of | | | | | | | breath | | | | | | | Syncope and | | | | | | | collapse | | | | | | | Ventricular | | | | | | | premature | | | | | | | depolarizati | | | | | | | on Atrial | | | | | | | premature | | | | | | | depolarizati | | | | | | | on | | | | | | | Procedures | | | | | | | CONSULT | | | + +--------+ + + + + Encounter Details +--------+---------+ + + + | Date | Type | Department | Care Team | Description | +--------+---------+ + + + | 01/21/ | Office | [facility] | Ana Becerra DO | Atherosclerosis of | | 2019 | Visit | CARDIOLOGY [place] | [address] | coronary artery, | | | | [address] | [address] [place] | angina presence | | | | [address] | [id number] | unspecified, | | | | [place], [place] | | unspecified vessel | | | | [address] | | or lesion type, | | | | [phone] | | unspecified whether | | | | | | [place] or | | | | | | transplanted heart | | | | | | (Primary Dx) | +--------+---------+ + + + Social History [...] Weight | 58.5 kg (129 lb) | 01/22/2020 9:18 AM | | | | | PDT | | + + + + + | Height | 162.6 cm (5' 4") | 01/22/2020 9:18 AM | | | | | PDT | | + + + + + | Body Mass Index | 22.14 | 01/22/2020 9:18 AM | | | | | PDT | | + + + + + documented in this encounter Progress Notes Ana Becerra DO - 01/22/2020 9:20 AM PDT [facility] Cardiology Cardiology Consult Note Reason for Consultation: CAD Requesting Physician: Clayton Clayton History Obtained From: patient HISTORY OF PRESENT ILLNESS: Cardiac Problem List CAD history of stent in 2007 [facility] History of brain aneurysm s/p craniotomy in [...] stents at that time. She has not had her stent cards. She denies any issues with ch est pain since 2007. She has not had any repeat angiograms. She was recently being worked up for cholecystitis and hiatal hernia and was planning on undergoing surgery for these proc edures. She was referred to Pulmonary and Cardiology for preoperative clearance. During he r pulmonary evaluation, she was diagnosed with lung cancer. There are new plans for surgica l resection of the lung cancer, but she is undergoing treatments with radiation. She follo ws with Dr. Banegas. She reports that recently she has not been very active at all lately, especially with the COVID-19 lock down. The most activity that she does are her ADLs. I d o not believe that she does up to 4 METs of activity. She denies any chest pains or shortne ss of breath recently. She does have shortness of breath previously, but this has been impr rudy after initiation of Spiriva. She denies any lower extremity swelling, orthopnea, PND. She gets occasional palpitations, which she reports are chronic, but denies any episodes o f syncope or presyncope. She is a current smoker and is working on quitting. She does have nicotine patches at home, but has not committed to quitting yet. Review of Systems Constitutional: Negative for fatigue. [...] GUIDED BIOPSY LUNG OR MEDIASTINUM - [place] [facility] [place]AC[place] VAGINA SURGERY MEDICATIONS Home Medications Outpatient Encounter Medications as of 01/22/2020 Medication Sig Dispense Refill ACETAMINOPHEN EXTRA STRENGTH 500 MG tablet albuterol 90 mcg/puff inhaler Inhale 2 puffs into the lungs every 4 hours as needed. amLODIPine (NORVASC) 5 mg tablet Take 5 mg by mouth Daily. atorvaSTATin (LIPITOR) 20 mg tablet Take 20 mg by mouth nightly. [DISCONTINUED] docusate sodium (COLACE) 100 mg capsule Take 1-2 capsules by mouth Twice daily as needed for Constipation. (Patient not taking: Reported on 01/22/2020) 60 capsule 0 DULoxetine (IRENKA) [address] capsule Daily. lisinopril-hydrochlorothiazide (PRINZIDE,ZESTORETIC) 20-12.5 MG per tablet Daily. methocarbamol (ROBAXIN) 750 mg tablet every 8 hours as needed. metoprolol succinate (TOPROL-XL) 50 mg 24 hr tablet Daily. omeprazole (PRILOSEC) 20 mg capsule Take 20 mg by mouth 2 times daily. [DISCONTINUED] oxyCODONE (ROXICODONE) 5 mg tablet Take 1 tablet by mouth every 4 hours as needed for Pain. (Patient not taking: Reported on 01/22/2020) 40 tablet 0 [DISCONTINUED] senna (SENOKOT) 8.6 mg tablet Take 2 tablets by mouth nightly as needed for Constipation. (Patient not taking: Reported on 01/22/2020) 14 tablet tiotropium (SPIRIVA HANDIHALER) 18 mcg inhalation capsule inhale contents of 1 capsule by mouth once daily (DO NOT SWALLOW) 30 capsule 3 No facility-administered encounter medications on file as of 01/22/2020. Allergies No Known Allergies FAMILY HISTORY Family History Problem Relation Age of Onset Heart attack Father High cholesterol Father Hypertension Father COPD Father - Father had several MN/valve replacement- CAD started in his 50s SOCIAL [...] file Gets together: Not on file Attends sikh service: Not on file Active member of [...] Not on file PHYSICAL EXAM Vital Signs: BP 100/70 | Pulse 74 | Ht 1.626 m (5' 4") | Wt 58.5 kg (129 lb) | SpO2 96% | BMI 22.14 kg/m Physical Exam GENERAL: Well developed, well nourished, [...] TRIG, HDL, LDL, TSH EKG: Last Echo: Last stress test: Last cath: Carotid US: AAA screening: Lower extremity US: OTHERS: ASSESSMENT & PLAN 1. CAD history of stent in 2007 [facility] 2. History of brain aneurysm s/p craniotomy in 2000 3. HTN 4. Fibromyalgia 5. RA 6. COPD 7. Lung cancer 8. History of tracheostomy due to severe tooth infection 9. Tobacco habituation -The patient is a 64-year-old female who presents to the cardiology office due to a history of Gerard artery disease. She reports that she had stents placed in [facility] in 2007. She was recently diagnosed with a lung cancer on pulmonary work-up prior to an elective ga llbladder surgery. She has undergone radiation therapy for this. From a cardiac standpoint , she is not able to do 4 METS of activity. Would recommend a cardiac stress test prior to consideration of elective surgery. -Continue aspirin 81 mg by mouth daily Continue amlodipine 5 mg by mouth daily Continue atorvastatin 20 mg by mouth daily Continue metoprolol succinate 50 mg by mouth daily Continue lisinopril/hydrochlorothiazide 20/12.5 mg by mouth daily Obtain a complete echocardiogram Obtain a vasodilator nuclear stress test Follow-up in 3-4 weeks Thank you for allowing me to participate in the care of this patient. Primary Care Physician: MD Ana Snow DO 01/22/2020 documented in this enco unter Plan of Treatment +--------+---------+ + + + | Date | Type | Specialty | Care Team | Description | +--------+---------+ + + + | 06/10/ | Office | Pulmonology | [facility], | | | 2019 | Visit | | Kayy Boyd, | | | | | | MD [address] | | | | | | [address], | | | | | | [place] [address] | | | | | | [phone] | | | | | | | | +--------+---------+ + + + + + +--------+ + + | Name | Type | Priori | Associated Diagnoses | Order Schedule | | | | ty | | | + + +--------+ + + | NM Nuclear Stress | Cardiac | Routin | Atherosclerosis of | Expected: | | Test (Vasodilator) | Nuclear | e | coronary artery, | 01/29/2020, Expires: | | | Medicine | | angina presence | 01/21/2021 | | | | | unspecified, | | | | | | unspecified vessel | | | | | | or lesion type, | | | | | | unspecified whether | | | | | | [place] or | | | | | | transplanted heart | | + + +--------+ + + | ECHO Complete | Echocardiog | Routin | Atherosclerosis of | Expected: | | | vijaya | e | coronary artery, | 01/29/2020, Expires: | | | | | angina presence | 01/21/2021 | | | | | unspecified, | | | | | | unspecified vessel | | | | | | or lesion type, | | | | | | unspecified whether | | | | | | [place] or | | | | | | transplanted heart | | + + +--------+ + + [...] whether | | | | | | [place] or | | | | | | transplanted heart | | + +--------+ + + + documented in this encounter Results ECG 12 lead (01/22/2020 9:23 AM PDT) [...] by | | | | | | ANA BECERRA MD ([id number]) | | | | [...] + | Diagnosis | + + | Atherosclerosis of coronary artery, angina presence unspecified, unspecified vessel or | | lesion type, unspecified whether [place] or transplanted heart - Primary | + + documented in this encounter
--- OUTSIDE RECORDS SUMMARY | ~2020-03-27 | XMS | Encounter Summary ---
Demographics + + + | Address | [address] | | | [place] [address] | + + + | Home Phone | | + + + | Preferred Language | Unknown | + + + | Marital Status | Single | + + + | Bahai Affiliation | Unknown | + + + | Race | Unknown | + + + | Ethnic Group | Unknown | + + + Author + + + | Author | [facility] | | | and [place] | + + + | Organization | [facility] | | | and [place] [...] Team Providers + +------+ + | Care Extraction Supervisor Name | Role | Phone | + +------+ + | Johnny Anguiano MD | PCP | | + +------+ + Reason for Visit +--------+ + | Reason | Comments | +--------+ + | Other | Faxed rx for overnight oximetry to In Home | +--------+ + Encounter Details +--------+ + + + + | Date | Type | Department | Care Team | Description | +--------+ + + + + | 02/11/ | Documentati | [facility] | Evert Devries, | Other (Faxed rx for | | 2019 | on | PULMONOLOGY [address] | Dairy Farmworker | overnight oximetry | | | | [address] | | to In Home ) | | | | [place], [place] | | | | | | [address] | | | | | | [phone] | | | +--------+ + + + [...] documented as of this encounter Progress Notes Evert Devries Dairy Farmworker - 02/12/2020 3:59 PM PDTFaxed rx for overnight oximet ry to In Home 4: 00 PM PDTdocumented in this encounter Plan of Treatment +--------+---------+ [...] | | | | | | [place] [address] | | | | | | [phone] | | | | | | | | +--------+---------+ + + + documented as of this encounter Visit Diagnoses Not on filedocumented in this encounter"
--- OUTSIDE RECORDS SUMMARY | ~2020-03-27 | XMS | Encounter Summary ---
Demographics + + + | Address | [address] | | | [place] [address] | + + + | Home Phone | | + + + | Preferred Language | Unknown | + + + | Marital Status | Single | + + + | Adventist Affiliation | Unknown | + + + | Race | Unknown | + + + | Ethnic Group | Unknown | + + + Author + + + | Author | [facility] | | | and [place] | + + + | Organization | [facility] | | | and [place] [...] Team Providers + +------+ + | Care Pusher Operator Name | Role | Phone | + +------+ + | Ruben An | PCP | | + +------+ + Reason for Visit + +--------+ + | Reason | Onset | Comments | | | Date | | + +--------+ + | Results, Pathology | 12/01/ | | | | 2020 | | + +--------+ + Encounter Details +--------+ + + + + | Date | Type | Department | Care Team | Description | +--------+ + + + + | 12/01/ | Telephone | [facility] | Bassam, | Results, Pathology | | 2019 | | PULMONOLOGY [address] | Kayy Boyd, | | | | | [address] | [address] | | | | | [place], [place] | [address] [place], | | | | | [address] | [place] [address] | | | | | [phone] | [phone] | | | | | | | [...] Telephone Encounter - Kayy Banegas MD - 12/02/2019 11:37 AM PDTI have expla ined findings with her again. Had a discussion about staging and treatment. I have explained the nature of the illness. I have reiterated importance of getting PFT done, and seeing her heart doctor as well so that we can find out if she will qualify for definitive surgery for stage I or II disease. I have also referred her to Dr Vegas and she says that she has an appointment next week to see him. --- Patient initiated the call/electronic message. The patient agreed to the service. All of the above advise were discussed with the patient. Total time spent: 15 mins Kayy Banegas MD Pulmonary and Critical Care Medicine [facility] [address], [place] [address] elephone Encounter - Evert Devries Carpet Installation Specialist - 12/02/2019 10:26 AM PDTPatient called an d stated that when Dr. Banegas called her about her biopsy results on that she was half asleep. Patient would like Dr. Banegas to call her back documented in this encounter Plan of Treatment +--------+---------+ + + + | Date | Type | Specialty | Care Team | Description | +--------+---------+ + + + | 06/10/ | Office | Pulmonology | Bassam, | | 2019 | Visit | | Kayy Boyd, | | | | | | [address] | | | | | | [place], | | | | | | [place] [address] | | | | | | [phone] | | | | | | | | +--------+---------+ + + + documented as of this encounter Visit Diagnoses + + | Diagnosis | + + | Adenocarcinoma, lung, right (HCC) - Primary | + + documented in this encounter"
--- OUTSIDE RECORDS SUMMARY | ~2020-03-27 | XMS | Encounter Summary ---
Demographics + + + | Address | [address] | | | [place] [address] | + + + | Home Phone | | + + + | Preferred Language | Unknown | + + + | Marital Status | Single | + + + | Protestant Affiliation | Unknown | + + + | Race | Unknown | + + + | Ethnic Group | Unknown | + + + Author + + + | Author | [facility] | | | and [place] | + + + | Organization | [facility] | | | and [...] Team Providers + +------+ + | Care Yarding Supervisor Name | Role | Phone | [...] | | | | DO Ana | [facility] | | | | | Atherosclero | [address] | | | | | sis of | [address] | [address] | | | | | coronary | [address] [address] | [place], [place] | | | | | artery, | [place], [place] | [address] | | | | | angina | [address] | Phone: | | | | | presence | Phone: | [phone] | | | | | unspecified, | [phone] | Fax: | | | | | unspecified | Fax: | [phone] | | | | | vessel or | [phone] | | | | | | lesion type, | | | | | | | unspecified | | | | | | | whether | | | | | | | [place] or | | | | | | [...] | | | | | artery, | [place], [place] | [address] | | | | | angina | [address] | Phone: | | | | | presence | Phone: | [phone] | | | | | unspecified, | [phone] | Fax: | | | | | unspecified | Fax: | [phone] | | | | | vessel or | [phone] | | | | | | lesion type, | | | | | | | unspecified | | | | | | | whether | | | | | | | [place] or | | | | | | [...] | | | | | Atherosclero | [address] | [address] | | | | | tic heart | [address] | [address] | | | | | disease of | [place], | [place], [place] | | | | | [place] | [place] | [address] Phone: | | | | | coronary | [address] | [phone] | | | | | artery | Phone: | Fax: | | | | | without | [phone] | [phone] | | | | | angina | Fax: | | | | | | pectoris | [phone] | | | | | | Old [...] + + | 01/21/ | Office | [facility] | Ana Becerra DO | Atherosclerosis of | | 2019 | Visit | CARDIOLOGY [place] | [address] | coronary artery, | | | | [address] | [place], [place] | angina presence | | | | [address] | [id number] | unspecified, | | | | [place], [place] | | unspecified vessel | | | | [address] | | or lesion type, | | | | [phone] | | unspecified whether | | | | | | [place] or | | | | | | [...] Becerra DO - 01/22/2020 9:20 AM PDT [facility] Cardiology Cardiology Consult Note Reason for Consultation: [...] GUIDED BIOPSY LUNG OR MEDIASTINUM - Location: [facility] CT TRACHEOSTOMY CLOSURE VAGINA SURGERY MEDICATIONS Home [...] Father COPD Father - Father had several AR/valve replacement- CAD started in his 50s SOCIAL [...] file Gets together: Not on file Attends scientologist service: Not on file Active member of [...] 1. CAD history of stent in 2007 [facility] 2. History of brain aneurysm s/p craniotomy in 2000 3. HTN 4. Fibromyalgia 5. RA 6. COPD 7. Lung cancer 8. History of tracheostomy due to severe tooth infection 9. Tobacco habituation -The patient is a 64-year-old female who presents to the cardiology office due to a history of Gerard artery disease. She reports that she had stents placed in [facility] in 2007. She was recently diagnosed with [...] | 06/10/ | Office | Pulmonology | [facility], | | | 2019 | Visit | | Kayy Boyd, | | | | | | MD [address] | | | | | | [place], | | | | | | [place] [address] | | | | | | [phone] | | | | | | | [...] whether | | | | | | [place] or | | | | | | [...] whether | | | | | | [place] or | | | | | | [...] whether | | | | | | [place] or | | | | | | [...] or | | lesion type, unspecified whether [place] or transplanted heart - Primary | + + documented in this encounter
--- OUTSIDE RECORDS SUMMARY | ~2020-03-27 | XMS | Encounter Summary ---
Demographics + + + | Address | [address] | | | [place] [address] | + + + | Home Phone | | + + + | Preferred Language | Unknown | + + + | Marital Status | Single | + + + | Restorationism Affiliation | Unknown | + + + | Race | Unknown | + + + | Ethnic Group | Unknown | + + + Author + + + | Author | [facility] | | | and [place] | + + + | Organization | [facility] | | | and [place] [...] Team Providers + +------+ + | Care Vendor Quality Supervisor Name | Role | Phone | [...] + + | 12/01/ | Telephone | [facility] | Bassam, | Results, Pathology | | 2019 | | PULMONOLOGY [address] | Kayy Boyd, | | | | | [address] | [address] | | | | | [place], [place] | [address] [place], | | | | | [address] | [place] [address] | | | | | [phone] | [phone] | | | | | | | [...] Banegas MD Pulmonary and Critical Care Medicine [facility] [address], [place] [address] elephone Encounter - Evert Devries Client Project Coordinator - 12/02/2019 10:26 AM PDTPatient called an [...] [place], | | | | | | [place] [address] | | | | | | [phone] | | | | | | | | +--------+---------+ + + + documented as of this encounter Visit Diagnoses + + | Diagnosis | + + | Adenocarcinoma, lung, right (HCC) - Primary | + + documented in this encounter"
--- OUTSIDE RECORDS SUMMARY | ~2020-03-27 | XMS | Encounter Summary ---
Demographics + + + | Address | [address] | | | [place] [address] | + + + | Home Phone | | + + + | Preferred Language | Unknown | + + + | Marital Status | Single | + + + | Anabaptism Affiliation | Unknown | + + + | Race | Unknown | + + + | Ethnic Group | Unknown | + + + Author + + + | Author | [facility] | | | and [place] | + + + | Organization | [facility] | [...] Team Providers + +------+ + | Care Forensic Technician Name | Role | Phone | + +------+ + | Johnny Anguiano MD | PCP | | + +------+ + Encounter Details +--------+ + + + + | Date | Type | Department | Care Team | Description | +--------+ + + + + | 11/16/ | Telephone | [facility] | Alexandra Varela, | | | 2019 | | [facility] MRI | Technologist | | | | | [address] | | | | | | [place], [place] | | | | | | [address] | | | | | | [phone] | | | +--------+ + + + [...] | | | | | | [place] [address] | | | | | | [phone] | | | | | | | | +--------+---------+ + + + documented as of this encounter Visit Diagnoses Not on filedocumented in this encounter"
--- OUTSIDE RECORDS SUMMARY | ~2020-03-27 | XMS | Encounter Summary ---
Demographics + + + | Address | [address] | | | [place] [address] | + + + | Home Phone | | + + + | Preferred Language | Unknown | + + + | Marital Status | Single | + + + | Baptism Affiliation | Unknown | + + + | Race | Unknown | + + + | Ethnic Group | Unknown | + + + Author + + + | Author | [facility] | | | and [place] | + + + | Organization | [facility] | | | and [place] | [...] Team Providers + +------+ + | Care Mh Teacher Name | Role | Phone | [...] + + | 02/11/ | Documentati | [facility] | Evert Devries, | Other (Faxed rx for | | 2019 | on | PULMONOLOGY [address] | [address]unch | overnight oximetry | | | | [address] | | to In Home ) | | | | [place], [place] | | | | | | [address] | | | | | | [phone] | | | +--------+ + + + [...] of this encounter Progress Notes Evert Devries Molder Punch - 02/12/2020 3:59 PM PDTFaxed rx for [...] | | | | | | [place] [address] | | | | | | [phone] | | | | | | | | +--------+---------+ + + + documented as of this encounter Visit Diagnoses Not on filedocumented in this encounter"
--- OUTSIDE RECORDS SUMMARY | ~2020-03-27 | XMS | Encounter Summary ---
Demographics + + + | Address | [address] | | | [place] [address] | + + + | Home Phone | | + + + | Preferred Language | Unknown | + + + | Marital Status | Single | + + + | Yarsani Affiliation | Unknown | + + + | Race | Unknown | + + + | Ethnic Group | Unknown | + + + Author + + + | Author | [facility] | | | and [place] | + + + | Organization | [facility] | | | and [place] [...] Team Providers + +------+ + | Care Experimental Electronics Developer Name | Role | Phone | + [...] + + | 12/02/ | Telephone | [facility] | Linda Wray | DME (CMN oxygen) | | 2019 | | [address] | T, RN | | | | | [place], [place] | | | | | | [address] | | | | | | [phone] | | | +--------+ + + + [...] 12/03/2019 3:46 PM PDTReceived a CMN from [facility] for DOS 11/27/19. Sent to the [...] | | | | | | [place] [address] | | | | | | [phone] | | | | | | | | +--------+---------+ + + + documented as of this encounter Visit Diagnoses Not on filedocumented in this encounter"
--- OUTSIDE RECORDS SUMMARY | ~2020-03-27 | XMS | Encounter Summary ---
Demographics + + + | Address | [address] | | | [place] [address] | + + + | Home Phone | | + + + | Preferred Language | Unknown | + + + | Marital Status | Single | + + + | Advent Affiliation | Unknown | + + + | Race | Unknown | + + + | Ethnic Group | Unknown | + + + Author + + + | Author | [facility] | | | and [place] | + + + | Organization | [facility] [...] Team Providers + +------+ + | Care Appraiser Auditor Name | Role | Phone | + [...] | | | | | 8mm | [place], [place] | [address] | | | | | Procedures | [address] | Phone: | | | | | PET CT Skull | Phone: | [phone] | | | | | Base To Mid | [phone] | Fax: | | | | | Thigh | Fax: | [phone] | | | | | | [phone] | | +--------+--------+ + + + + [...] or equal to | [address] | [place], [place] | | | | | 8mm | [place] | [address] | | | | | Procedures | [address] | Phone: | | | | | PET CT Skull | Phone: | [phone] | | | | | Base To Mid | [phone] | Fax: | | | | | Thigh | Fax: | [phone] | | | | | | [phone] | | +--------+--------+ + + + + Encounter Details +--------+ + + + + | Date | Type | Department | Care Team | Description | +--------+ + + + + | 11/17/ | Hospital | [facility] | Bassam, | Incidental pulmonary | | 2020 | Encounter | [facility] | Kayy Boyd, | nodule, greater | | | | MEDICINE 945 | [address] | than or equal to 8mm | | | | [address] | [place], | | | | | [place] | [place] [address] | | | | | [address] | [phone] | | | | | [phone] | | | +--------+ + + + [...] | | | | | | [place] [address] | | | | | | [phone] | | | | | | | [...] | | | POC | performed at [facility];[id number] | | LABORATORY | | | | [address];[place], [place] | | | | | | [address] | | | | + + + + + + + + | Specimen | + + | | + + + + + + + | Performing | Address | City/State/Zipcode | Phone Number | | Organization | | | | + + + + + | [facility] | [address] | [place] [address] | [phone] | + + + + + documented [...]
--- OUTSIDE RECORDS SUMMARY | ~2020-03-27 | XMS | Encounter Summary ---
Demographics + + + | Address | [address] | | | [place] [address] | + + + | Home Phone | | + + + | Preferred Language | Unknown | + + + | Marital Status | Single | + + + | Mormon Affiliation | Unknown | + + + | Race | Unknown | + + + | Ethnic Group | Unknown | + + + Author + + + | Author | [facility] | | | and [place] | + + + | Organization | [facility] | | | and [...] Team Providers + +------+ + | Care Data Integration Architect Name | Role | Phone | + [...] + + | 02/09/ | Telephone | [facility] | Clayton Howard DO | Imaging | | 2019 | | NEUROSURGERY [address] | [address] | | | | | [address] | [address] | | | | | [place], [place] | [place] [address] | | | | | [address] | [phone] | | | | | [phone] | | | +--------+ + + + [...] AM PDTSpoke with Ema dolan, provider at [facility]. She states patient is positive for lung [...] our without contrast. Please contact back at [phone] elephone Encounter - Myron Garica - 02/10/2020 1:05 PM Martir Brothers, is calling regarding Imaging and would like a call back. Additional Call Details: Ema Brothers, a Provider from [facility], is needing a c all back in regards to this mutual paitent and Ema Brothers wanting to order Imaging Orde rs for this Oncology patient. Ema can be reached at [phone] If this is a symptom based call, was patient offered triage? Not Applicable If this is a symptom based call and you were unable to immediately transfer the call to a tameka tang ballast inspector was caller made aware that if at [...] [place], | | | | | | [place] [address] | | | | | | [phone] | | | | | | | | +--------+---------+ + + + documented as of this encounter Visit Diagnoses Not on filedocumented in this encounter"
--- OUTSIDE RECORDS SUMMARY | ~2020-03-27 | XMS | Encounter Summary ---
Demographics + + + | Address | [address] | | | [place] [address] | + + + | Home Phone | | + + + | Preferred Language | Unknown | + + + | Marital Status | Single | + + + | Anabaptism Affiliation | Unknown | + + + | Race | Unknown | + + + | Ethnic Group | Unknown | + + + Author + + + | Author | [facility] | | | and [place] | + + + | Organization | [facility] | | | and [place] [...] Team Providers + +------+ + | Care Building Drafter Name | Role | Phone | + +------+ + | Ruben An | PCP | | + +------+ + Encounter Details +--------+ + + + + | Date | Type | Department | Care Team | Description | +--------+ + + + + | 11/14/ | Documentati | [facility] | Brigitte Márquez RN | | | 2020 | on | PULMONOLOGY [address] | | | | | | [address] | | | | | | [place] | | | | | | [address] | | | | | | [phone] | | | +--------+ + + + [...] - 11/14/2019 11:47 AM PSTF[facility]ed [facility]. Received report for this scan. documented in this encounter Plan of Treatment +--------+---------+ + + + | Date | Type | Specialty | Care Team | Description | +--------+---------+ + + + | 06/10/ | Office | Pulmonology | [facility], | | 2019 | Visit | | Kayy Boyd, | | | | | | MD [address] | | | | | | [place], | | | | | | [place] [address] | | | | | | [phone] | | | | | | | | +--------+---------+ + + + documented as of this encounter Visit Diagnoses Not on filedocumented in this encounter"
--- OUTSIDE RECORDS SUMMARY | ~2020-03-27 | XMS | Encounter Summary ---
Demographics + + + | Address | [address] | | | [place] [address] | + + + | Home Phone [...] | Organization | [facility] [...] Team Providers + +------+ + | Care Starting Gate Driver Name | Role | Phone | + +------+ + | Ruben An | PCP | | + +------+ + Encounter Details +--------+ + + + + | Date | Type | Department | Care Team | Description | +--------+ + + + + | 11/16/ | Telephone | [facility] | Alexandra Varela, | | | 2019 | | [facility] MRI | Technologist | | | | | [address] | | | | | | [place] | | | | | | [address] | | | | | | [phone] | | | +--------+ + + + [...] this encounter Miscellaneous Notes Telephone Encounter - Kaden Heaton MD - 11/17/2019 11:12 AM PSTOK to schedule Prone, RLL elep klaudia Encounter - Kaden Heaton MD - 11/17/2019 9:54 AM PSTWill re-evaluate after C T chest has been obtained 9: 54 AM PSTTelephone Encounter - Alexandra Varela Technologist - 11/17/2019 9:24 AM PSTRADI OLOGY BIOPSY REFERRAL Diagnosis: lung nodule right sided Biopsy Requested (be as specific as possible): CT guided lung biopsy right side Referring Physician: Kayy Banegas Office contact: [phone] Patient Phone: Hm: [phone] Imaging: prev CT chest 11/13 on Pacs from [facility], PET scheduled for 11/17 here. Patient Dx: 1. Chronic obstructive pulmonary disease, unspecified COPD type (HCC) I suspect that Ms Laura is short of breath because of undiagnosed and untreated COPD. I h ave requested for a baseline PFT from [facility], and a CXR today. I [...] - CT Chest Lung Cancer Screening; Future Patient BMI: none Blood thinners: none Any Red Flags?: To be performed by: Nelson sánchez in this encounter Plan of Treatment +--------+---------+ + + + | Date | Type | Specialty | Care Team | Description | +--------+---------+ + + + | 06/10/ | Office | Pulmonology | [facility], | | 2019 | Visit | | Kayy Boyd, | | | | | | MD [address] | | | | | | [place], | | | | | | [place] [address] | | | | | | [phone] | | | | | | | | +--------+---------+ + + + documented as of this encounter Visit Diagnoses Not on filedocumented in this encounter"
--- OUTSIDE RECORDS SUMMARY | ~2020-03-27 | XMS | Encounter Summary ---
Demographics + + + | Address | [address] | | | [place] [address] | + + + | Home Phone | | + + + | Preferred Language | Unknown | + + + | Marital Status | Single | + + + | Judaism Affiliation | Unknown | + + + | Race | Unknown | + + + | Ethnic Group | Unknown | + + + Author + + + | Author | [facility] | | | and [place] | + + + | Organization | [facility] | | | and [...] Team Providers + +------+ + | Care Innersole Fitter Name | Role | Phone | + +------+ + | Ruben An | PCP | | + +------+ + Encounter Details +--------+ + + + + | Date | Type | Department | Care Team | Description | +--------+ + + + + | 11/25/ | Hospital | [facility] | Georgiana Rivera, | | | 2019 | Encounter | [facility] | [address] | | | | | [address] | [place], | | | | | [facility] | [place] [address] | | | | | [address] | [phone] | | | | | [phone] | | | +--------+ + + + [...] [place], | | | | | | [place] [address] | | | | | | [phone] | | | | | | | [...]
--- OUTSIDE RECORDS SUMMARY | ~2020-03-27 | XMS | Encounter Summary ---
Demographics + + + | Address | [address] | | | [place] [address] | + + + | Home Phone | | + + + | Preferred Language | Unknown | + + + | Marital Status | Single | + + + | Synagogue Affiliation | Unknown | + + + | Race | Unknown | + + + | Ethnic Group | Unknown | + + + Author + + + | Author | [facility] | | | and [place] | + + + | Organization | [facility] | | | and [...] Team Providers + +------+ + | Care Records Management Analyst Name | Role | Phone | [...] + + | 12/23/ | Refill | [facility] | Bassam, | Medication Refill | | 2019 | | PULMONOLOGY [address] | Kayy Boyd, | | | | | [address] | MD [address] | | | | | [facility] [place] | [address] [place], | | | | | [address] | [place] [address] | | | | | [phone] | [phone] | | | | | | | [...] | | | | | | [place] [address] | | | | | | [phone] | | | | | | | | +--------+---------+ + + + documented as of this encounter Visit Diagnoses + + | Diagnosis | + + | Chronic obstructive pulmonary disease, unspecified COPD type (HCC) | + + documented in this encounter"
--- OUTSIDE RECORDS SUMMARY | ~2020-03-27 | XMS | Encounter Summary ---
Demographics + + + | Address | [address] | | | [place] [address] | + + + | Home Phone | | + + + | Preferred Language | Unknown | + + + | Marital Status | Single | + + + | Muslim Affiliation | Unknown | + + + | Race | Unknown | + + + | Ethnic Group | Unknown | + + + Author + + + | Author | [facility] | | | and Zhaoana | + + + | Organization | [facility] | | | and [...] Team Providers + +------+ + | Care Agriculture Science Teacher Name | Role | Phone | [...] | Radiology | Diagnoses | Bassam, | [facility] [address] | | | | | Incidental | Kayy | [address] | | | | | pulmonary | MD Deb | [place] | | | | | nodule, | 1100 | [address] | | | | | greater than | JASON ARROYO | Phone: | | | | | or equal to | ДМИТРИЙ E | [phone] | | | | | 8mm | [place], [place] | Fax: | | | | | Procedures | [address] | [phone] | | | | | CT Guided | Phone: | | | | | | Biopsy Lung | [phone] | | | | | | Or | Fax: | | | | | | Mediastinum | [phone] | | +--------+--------+ + + + + [...] + + | 11/25/ | Hospital | [facility] | Bassam, | Incidental pulmonary | | 2020 - | Encounter | [facility] | Kayy Deb, | nodule, greater | | | | CARE FLOOR [address] | MD [address] | than or equal to | | 11/26/ | | [address] | [place], | 8mm; Postprocedural | | 2019 | | [place], [place] | [place] [address] | pneumothorax; | | | | [address] | [phone] | Essential | | | | [phone] | | hypertension; | | | | | Dax Chisholm | Chronic obstructive | | | | | MD Sonali [address] | pulmonary disease, | | | | | JASON GALLARDO | unspecified COPD | | | | | [place] [address] | type (HCC) | | | | | [phone] | | | | | | | | | | | | Severo Erickson, | | | | | | [address] [facility] | | | | | | [place] [address] | | | | | | [phone] | | | | | | | | | | | | Dax Smith MD | | | | | | [address] | | | | | | [place] [address] | | | | | | [phone] | | | | | | | | | | | | 2, [facility] Nurse | | | | | | Radiologist, [facility] | | +--------+ + + + [...] s/p PCI in 2007 at hospital in [facility], 2 stents placed - home meds [...] with pt on 11/27/19 Family Contact:Chente Mann [phone], updated on 11/27/19 Something about patient:pt lives with son, pt from , she has 3 kids, she i s retired, 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 If there are any questions regarding this patients care please feel free to call me on my cell at , [facility] medicine Discharge Exam and Data: [...] if you have any of the following: Xjkckjk131.4F (38F)or higher, or as directed by your healthcare provider Trouble breathing Sharp chest pain that may spread to your shoulder or back Bluish color of the skin Weakness, dizziness, or fainting A feeling of anxiety or restlessness Fast pulse Date Last Reviewed: 06/17/201619990582-7945 [employer]. [address] [place] [address], [place] [address]. All righ ts reserved. This information is [...] and lucila meet skin Date Last Reviewed: 10/18/201619995880-3984 [employer]. [address] [place] [address], [place] [address]. All righ ts reserved. This information is [...] was done prior to pt. Going to [place] [id number]. Pt. C/o of severe right chest pain [...] note might be different [facility]: Hospitalist Admission History & Physical Date [...] file Gets together: Not on file Attends roman catholic service: Not on file Active member of [...] 1955 Requesting Provider: He Banegas* Consulting Provider: Dxa Chisholm MD Reason for Referral: Biopsy request [...] Lexis Shaver RN - 11/27/2019 3:35 PM [id number]: spoke with Lita RAJAN- pt has not [...] - 11/26/2019 5:34 PM PDTPt transferred to [facility], report received from Yaima RAJAN . Pt [...] OP Diagnosis: ptx Post OP Diagnosis: same Kidney Puller: Dax Chisholm MD MD Anesthesia Type: moderate [...] R lung nodule Post OP Diagnosis: Same Kidney Puller: Dax Chisholm MD MD Anesthesia Type: Moderate [...] [place], | | | | | | [place] [address] | | | | | | [phone] | | | | | | | [...] | | | | | performed at [facility];[address] | | | | | | [address] [place] | | | | | | [address] | | | | + + + + + + + + | Specimen | + + | Blood | + + + + + + + | Performing | Address | City/State/Zipcode | Phone Number | | Organization | | | | + + + + + | [facility] | [address] [facility] | [place] [address] | [phone] | + + + + + CBC [...] LABORATORY | | | | performed at [facility], [address] | | | | | | [address] [facility], | | | | | | [place] [address] | | | | + + + + + + + + | Specimen | + + | Blood | + + + + + + + | Performing | Address | City/State/Zipcode | Phone Number | | Organization | | | | + + + + + | [facility] | [address] | [place] [address] | [phone] | + + + + + CT Guided Chest Tube Placement (11/26/2019 3:11 PM PDT) + + | Specimen | + + | | + + + + + | Impressions | Performed At | + + + | Uncomplicated CT-guided 10 Cymraes right chest tube placement. | [facility] [...] | IMPRESSION: | | Uncomplicated CT-guided 10 Cymraes right chest tube placement. | | | [...] | | | | | | MDRD WAMS traceable | | | | | | equation.Testing | | | | | | performed at [facility];[address] | | | | | | [facility];[place], [place] | | | | | | [address] | | | | + + + + + + + + | Specimen | + + | Blood | + + + + + + + | Performing | Address | City/State/Zipcode | Phone Number | | Organization | | | | + + + + + | [facility] | [address] | [place] [address] | [phone] | + + + + + XR [...] + + + | THIS IS | [place] PATHOLOGY | | AN ADDENDUM REPORT SPECIMEN(S): A RIGHT LOWER LOBE LUNG BIOPSY | [facility] | | SPECIMEN SOURCE:A. RIGHT LOWER LOBE [...] As part of | | | the Journal Entry Audit Clerk Program, this case was reviewed by another | | | member of [facility]. (AMB) MICROSCOPIC EXAMINATION:Histologic | | | [...] interpretation was | | | performed by [facility], [facility], [address] | | | [place], [place] (Exercise Planner: Diego Mejia M.D.; | | | CLIA#: [id number]).The technical component was performed by [facility] | | | [facility], [address] [place] [address] (Exercise Planner: | | | Gayatri Hatch MD; CLIA# [id number]). REASON FOR ADDENDUM:To add results | | [...] | with OptiView detection was performed at [facility], [facility] | | | [place], [place]. The Dako 22C3 pharmDx clone is [...] performance | | | characteristics determined by [facility], but this does not | | | represent FDA-approved application of this assay. [facility] | | | is certified under the [...] | | | immunohistochemistry platforms. PLOSONE 12(8): i4263967. | | | https://doi.org/10.1371/journal.pone.4922311 The technical component | | | and professional interpretation were performed by [facility], | | | [address] [address] (Exercise Planner: | | | Rg Garcia D.O.; CLIA#:[id number]). REASON FOR ADDENDUM:To add | | | [...] test was completed at | | | [facility] [address] / [address] / | | | [phone] / CLIA#[id number] / Exercise Planner(s): Manda Bonilla | | | Fariba (Accession/CaseNo: [id number])The performance | | | characteristics of this test have been determined by [facility] | | | Laboratories. This test has not been approved by the FDA. The FDA has | | | determined such clearance or approval is not necessary. This | | | laboratory is CLIA certified to perform high complexity clinical | | | testing.Images that may be included within this report are | | | registration representative of the patient but not all testing in its entirety and | | | should not be used to render a result.The CPT codes provided with our | | | test descriptions are based on MolDX and AMA guidelines and are for | | | informational purposes only. Correct CPT coding is the sole | | | responsibility of the billing republican.Please direct any questions | | | regarding [...] test | | | was completed at [facility] [place], [address] [place] [address] | | | / [address] / [phone] / CLIA#[id number] / Exercise Planner(s): Manda | | | Fariba Bonilla (Accession/CaseNo: [id number])The | | | performance characteristics of this test have been determined by | | | [facility]. This test has not been approved by the FDA. | | | The FDA has determined such clearance or approval is notnecessary. | | | This laboratory is CLIA certified to perform high complexity clinical | | | testing.Images that may be included within this report are | | | registration representative of the patient but not all testing in its entirety and | | | should not be used to render a result. The CPT codes provided with our | | | test descriptions are based on MolDX and AMA guidelines and are for | | | informational purposes only. Correct CPT coding is the sole | | | responsibility of the billing republican.Please direct any questions | | | regarding coding to the payer being billed. Right Lower Lobe Lung | | | (A2), ALK Lung FISH Analysis Results: QNS Interpretation:After | | | pathologist review of an HE stained slide from block #[id number], | | | there appears to be a limited amount of cells remaining in the block. | | | This test assay cannot be performed on the givenblock due to quantity | | | not sufficient. Please submit another block, if available. The | | | Technical Component Processing, Analysis and Professional Component of | | | this test was completed at [facility] [place], [address] [place] [address] | | | [place] / [address] / [phone] / [place] #[id number] / Medical | | | Director(s): Manda Bonilla M.D. (Accession / Case No: [id number] / | | | [id number]). [facility] FISH test uses either FDA | | [...] is the sole responsibility of the billing republican. Please direct any | | | questions regarding coding to the payer being billed. Right Lower Lobe | | | Lung (A2), ROS1 FISH Analysis Results: QNS Interpretation:After | | | pathologist review of an HE stained slide from block #[id number], | | | there appears to be no tumor tissue remaining in the block.This test | | | assay cannot be performed on the given block due to quantity not | | | sufficient. Please submit another block, if available. The Technical | | | Component Processing and Analysis of this test was completed at | | | [facility] [place], [address] [place] [address] / [address] / | | | [phone] / [facility] #[id number] / Exercise Planner(s):Manda Bonilla | | | Shaji. The Professional Component of this test was completed at | | | [facility] [place], [address] [place] [address] | | | / [address] / [phone] / Exercise Planner(s): Amalia Shane MD. | | | Accession / CaseNo: [id number] / [id number]). [employer] [facility] [facility] | | | FISH test uses either FDA cleared and/or analyte specific reagent | | | (ASR) probes. This test was developed and itsperformance | | | characteristics determined by [facility] [facility] in [place], | | | [place]. It has not been cleared or approved [...] | | included within this report are registration representative of the patient but not | | | all testing in its entirety and should not be used to render a result. | | | The CPT codes provided with our test descriptions are based on AMA | | | guidelines and are for informational purposes only. Correct CPT coding | | | is thesole responsibility of the billing republican. Please direct any | | | questions [...] | | the marked target area. Reference: Supirya Rogers. | | | Personalized therapy for lung cancer: striking a moving target. JCI | | | Insight. 2018;3(15). PMID:46914220. Reference Ranges:ALK Lung: The | | | [...] Probe set: ALK LungScoring method: ManualCPT Code: 16902# of | | | Units: 1 All controls were within expected ranges.The Technical | | | Component Processing and Analysis of this test was completed at | | | [facility] [place], [address] [place], [place] [address], [place] / [address] / | | | [phone] / CLIA #[id number] / Exercise Planner(s):Manda Bonilla | | | Fariba (Accession / Case No: [id number] / [id number]). The Professional | | | Component of this test was completed at [facility] [place], [address] | | [facility], [address],[place], [place] / [address] / | | | [phone] / CLIA# [id number] / Exercise Planner(s): Fernando Frost | | | MD Abhijit. [employer] FISH test uses either FDA cleared | [...] | | | responsibility of the billing republican. Please direct any questions | | | [...] target. JCI | | | Insight. 2018;3(15). PMID:[id number]. Reference Ranges: ROS1: The sample | | [...] Scored: 50 Probe | | | set: VPP7Wirter method: ManualCPT Code: 96031# of Units: 1 | | | All controls were within expected ranges. The Technical Component | | | Processing and Analysis of this test was completed at [facility] | | | [address] / [address] / [phone] / CLIA | | | #[id number] / Exercise Planner(s):Manda Bonilla M.D. (Accession / | | | Case No: [id number] / [id number]). The Professional Component of this | | | test was completed at [facility] [address] | | | [facility] [address],[place], [place] / [address] / [phone] / CLIA# | | | [id number] / Exercise Planner(s): Fernando Lacey MD. [facility] | | | Laboratories FISH test uses either FDA cleared and/or analyte specific | | | reagent (ASR)probes. This test was developed and its performance | | | characteristics determined by [facility] in [place], | | | [place]. It has not [...] | be included within this report are registration representative of thepatient but | | | not all testing in its entirety and should not be used to render a | | | result. The CPT codes provided with our test descriptions are based on | | | AMA guidelines and are for informational purposesonly. Correct CPT | | | coding is the sole responsibility of the billing republican. Please direct | | | any questions [...] region of BRAF exon 15 by high-sensitivity [place] sequencing which | | | improves the [...] clinicopathological relevance. Histopathology.2018;72(1):6-31. PMID: | | | 36859934.2. Jadiel L, Clifford-Elroy A, Sj F, et al. Molecular | | | testing for BRAF mutations to inform melanoma treatment decisions: a | | | move toward precision medicine. Mod Pathol. 2018;31(1):24-38. | | | PMID:84209229.3. Kevin H, Miguel T, Jayy ML, Tim JW. The | | | interaction between BRAF mutation and microsatellite instability (MSI) | | | status in determining survival outcomes after adjuvant 5FU based | | | chemotherapyin stage III colon cancer. J Surg Oncol. | | | 2018;118(8):4214-9484. PMID: 28233017.4. Brandon DEWEY, Jules LA, | | | Al-Destiny SILVESTRE, et al. Non-V600 BRAF Mutations Define a Clinically | | | Distinct Molecular Subtype of Metastatic Colorectal Cancer. J Clin | | | Oncol. 2017;35(23):5792-6520. PMID:88986478. 5. Feng Franco, | | | [place]. New perspectives for targeting LISSA | | | kinase in human cancer. Liyah Rev Cancer. 2017;17(11):676-691. PMID: | | | 48466104.6. Ratna G, Bonita C, Naveed K, et al. Beyond the | | | BRAF(V)(600E) hotspot: biology and clinical implications of rare BRAF | | | gene mutations in melanoma patients. Br J Dermatol. | | | 2017;177(4):936-944.PMID: 58564940.7. Yo SG, Monse ML. BRAF | | | mutation testing in colorectal cancer. Arch Pathol Lab Med. | | | 2009;134(8):1225-8. PMID: 25321419.8. Marcelino RJ. Hairy cell | | | leukemia: present and future directions. Leuk Lymphoma. | | | 2019;60(12):4744-2680. PMID: 86739612. Test/Panel: BRAF Mutation | | | AnalysisMolDX CPT: 65473EIJ CPT: 37208 The Technical Component | | | Processing, Analysis and Professional Component of this test was | | | completed at [facility] [place], [address] [place] [address], [place] / | | | [address] / [phone] / CLIA #[id number] / Exercise Planner(s): Manda | | | Fariba Bonilla (Accession / Case No: [id number] / [id number]). The | | | performance characteristics of this test have been determined by | | | [employer] [facility] [facility]. This test hasnot been approved by the FDA. | | | The FDA has determined such clearance or approval is not necessary. | | | This laboratory is CLIA certified to perform high complexity clinical | | | testing. Images that may beincluded within this report are | | | registration representative of the patient but not all testing in its entirety and | | | should not be used to render a result. The CPT codes provided with our | | | test descriptions are basedon MolDX and AMA guidelines and are for | | | informational purposes only. Correct CPT coding is the sole | | | responsibility of the billing republican. Please direct any questions | | | [...] with the exception of | | | [id number], which is associated with increased sensitivity to [...] | | sequencing method with Locked NucleicAcid (METERS SUPERINTENDENT) for T790M. The | | | sensitivity [...] al. Epidermal growth factor receptor mutations in ppx-spppp-ouau lung | | | cancer: implications for treatment and tumor biology. J Clin Oncol. | | | 2005; 23:3227-34.2. Karmen TJ, et al. Activating mutations in the | | | epidermal growth factor receptor underlying responsiveness of | | | wgo-nwylj-tfiy lung cancer to gefitinib. N Engl J [...] | | | gefitinib therapy. Science. 2004; 304:5071-8163. 5. Thaddeus JORDAN, et al. | | | Differential responses to erlotinib in epidermal growth factor | | | receptor (EGFR)-mutated lung cancers with acquired resistance to | | | gefitinib carrying the L747S and T790M secondarymutations. J Clin | | | Oncol. 2008; 26:1182-4.6. Roni Goldberg, Arianna F, Karson B, et al. Phase 2 | | | Study of the HSP-90 Inhibitor SRC142 in Previously Treated and | | | Molecularly Defined Patients with Advanced Non-Small Cell Lung Cancer. | | | J Thorac Oncol.2018;13(4):576-584. Test/Panel: EGFR Mutation | | | AnalysisMolDX CPT: 36144MTO CPT: 35400 The Technical Component | | | Processing, Analysis and Professional Component of this test was | | | completed at [facility] [place], [address] [place] [address], [place] / | | | [address] / [phone] / CLIA #[id number] /Exercise Planner(s): Manda | | | Fariba Bonilla (Accession / Case No: [id number] / [id number]). The | | | performance characteristics of this test have been determined by | | | [employer]. This test has not been approved by the FDA. | | | The FDA has determined such clearance or approval is not necessary. | | | This laboratory is CLIA certified to perform high complexity clinical | | | testing. Images that may beincluded within this report are | | | registration representative of the patient but not all testing in its entirety and | | | should not be used to render a result. The CPT codes provided with our | | | test descriptions are basedon MolDX and AMA guidelines and are for | | | informational purposes only. Correct CPT coding is the sole | | | responsibility of the billing republican. Please direct any questions | | | regarding coding to the payer beingbilled.To document review of | | | material for external testing. ADDENDUM COMMENT:At the request of | | | Roberto, archived blocks and slides for case [id number] are retrieved | | | on Tammi Laura, and reviewed by a pathologist to assess | | | adequacy for BRAF and EGFR testing. Block A1 was sent to [facility]. | | | AMB:lap Professional interpretation was performed by [facility] | | | [facility]ostics[address], | | | [place] [address] (Exercise Planner: Diego Mejia M.D.; CLIA#: | | | [id number]). Diagnostician: Ariel Grace MD, | | | [...] LABORATORY | | | | performed at [facility];[address] | | | | | | [address];[place] | | | | | | [address] | | | | + + + + + + + + | Specimen | + + | Blood | + + + + + + + | Performing | Address | City/State/Zipcode | Phone Number | | Organization | | | | + + + + + | [facility] | [address] | [place] [address] | [phone] | + + + + + Protime [...] | | | | | performed at [facility];[address] | | | | | | [address] [place], [place] | | | | | | [address] | | | | + + + + + + + + | Specimen | + + | Blood | + + + + + + + | Performing | Address | City/State/Zipcode | Phone Number | | Organization | | | | + + + + + | [facility] | [address] | [place] [address] | [phone] | + + + + + documented [...] | | | | | dose on [facility] 11/27/19 at 0900 | | | | | | + +-------+ +---------+---+---+ +---+---+ | | | +---+---+ documented in this encounter
--- OUTSIDE RECORDS SUMMARY | ~2020-03-27 | XMS | Encounter Summary ---
Demographics + + + | Address | [address] | | | [place] [address] | + + + | Home Phone | | + + + | Preferred Language | Unknown | + + + | Marital Status | Single | + + + | Faith Affiliation | Unknown | + + + | Race | Unknown | + + + | Ethnic Group | Unknown | + + + Author + + + | Author | [facility] | | | and Zhaoana | + + + | Organization | [facility] | | | and [place] [...] Team Providers + +------+ + | Care Fork Repairer Name | Role | Phone | + +------+ + | Ruben An | PCP | | + +------+ + Encounter Details +--------+ + + + + | Date | Type | Department | Care Team | Description | +--------+ + + + + | 11/16/ | Telephone | [facility] | Alexandra Varela, | | | 2019 | | [facility] MRI | Technologist | | | | | [address] | | | | | | [place] | | | | | | [address] | | | | | | [phone] | | | +--------+ + + + [...] side Referring Physician: Kayy Banegas Office contact: [phone] Patient Phone: Hm: [phone] Imaging: prev CT chest 11/13 on Pacs from [facility], PET scheduled for 11/17 here. Patient Dx: 1. Chronic obstructive pulmonary disease, unspecified COPD type (HCC) I suspect that Ms Laura is short of breath because of undiagnosed and untreated COPD. I h ave requested for a baseline PFT from [facility], and a CXR today. I [...] | 06/10/ | Office | Pulmonology | [facility], | | 2019 | Visit | | Kayy Boyd, | | | | | | MD [address] | | | | | | [place], | | | | | | [place] [address] | | | | | | [phone] | | | | | | | | +--------+---------+ + + + documented as of this encounter Visit Diagnoses Not on filedocumented in this encounter"
[~2020-03-27 07:36] MED LIST changes: +SPIRIVA RESPIMAT4 G1 INH; +VENTOLIN HFA18 GM INH
[2020-03-27] MEDS ORDERED: DULOXETINE HCL60 MG PO (13:41)
[2020-03-27] MEDS ORDERED: METHOCARBAMOL750 MG PO (13:46)
--- NOTE | 2020-03-29 09:08 | EKG ---
[facility] [address] [facility] [place] [address] Signed Sinus tachycardia with frequent premature ventricular complexes Possible Left atrial enlargement Septal infarct (cited on or before 22-MAY-2019) Marked ST abnormality, possible inferior subendocardial injury Abnormal ECG When compared with ECG of 22-MAY-2019 08:52, Significant changes have occurred Confirmed by SANTOS MONREAL MD ([id number]) on 03/29/2020 9:08:04 AM Electronically Signed By: SANTOS MONREAL MD 03/29/20 0908 PATIENT NAME: DARELL MATIAS Electrocardiogram DATE OF : 59 PHYSICIAN: SANTOS MONREAL MD REPORT #: [id number] REPORT IS CONFIDENTIAL AND NOT TO BE RELEASED WITHOUT AUTHORIZATION
--- NOTE | 2020-03-31 18:10 | PATH ---
[facility] [address] [place], [place] [address] Signed ORDERING PHYSICIAN: Vitaliy YBARRA, John Landa PATIENT NAME: DARELL MATIAS GENDER: F : 1955 SPECIMEN(S): No Source Given MOLECULAR PATHOLOGY RESULTS: SARS-CoV-2 Not Detected ADDITIONAL NOTES.: Positive results are indicative of the presence of SARS-CoV-2 RNA. The test will detect both and live SARS-CoV-2. Positive results do not rule out bacterial infection or co-infection with other viruses. Negative results do not rule-out SARS-CoV-2 infection and should not be used as the sole basis for patient management decisions. Negative results must be combined with other clinical observations, patient history, and epidemiological information. Inconclusive results indicate the minimum number of SARS-CoV-2 molecular targets required to reliably interpret the test was not met. Invalid results are possibly due to inhibiting or interfering substances in the collected sample. In both scenarios, please recollect if clinically indicated. The [employer] COVID-19 combo test kit is authorized to aid in the diagnosis of SARS-CoV2 infection. The test has not been validated for screening asymptomatic individuals. The test has not been FDA approved; it has been authorized by the FDA under an Emergency Use Authorization (EUA). This test is only authorized for the duration of the declaration that circumstances exist justifying the authorization of emergency use of in vitro diagnostic tests for detection and/or diagnosis of COVID-19 under Section 564(b)(1) of the Act, 21 U.S. C. 360bbb-3(b)(1), unless the authorization is terminated or revoked sooner. PERFORMING LABORATORY.: [facility], [address] [place] [id number] (Level Vial Inspector: Klaudia Saleh MD, PhD.; CLIA#: [id number]).1 PATIENT NAME: DARELL MATIAS PATHOLOGY DATE OF : [birth year] REPORT #: [id number] PHYSICIAN: SUKHDEEP PATHOLOGY PCP: HAYDEN SHELTON PA-C REPORT IS CONFIDENTIAL AND NOT TO BE RELEASED WITHOUT AUTHORIZATION [address] [place] [address] Signed Diagnostician: Lois Little Pathologist Electronically Signed 03/31/2020 Copies: ~ PATIENT NAME: DARELL MATIAS PATHOLOGY DATE OF : [birth year] REPORT #: [id number] PHYSICIAN: SUKHDEEP PATHOLOGY PCP: HAYDEN SHELTON PA-C REPORT IS CONFIDENTIAL AND NOT TO BE RELEASED WITHOUT AUTHORIZATION
[2020-04-01] MEDS ORDERED: AMOX TR-K CLV1 EAC1 PO (10:17)
[2020-04-01] MEDS ORDERED: DEXAMETHASONE4 MG PO (10:22)
[2020-04-01] MEDS ORDERED: OXYCODONE HCL5 MG PO (10:30)
== END 2020-04-01 13:20 | disposition home or self-care (01) | DRG 189 ==
LOC: ED 07:36 → CCU 12:41 → MS 03-30 00:15
PROVIDERS: ADMIT Internal Medicine; ATTEND Internal Medicine
PROC: 5A09357 Assistance with Respiratory Ventilation, Less than 24 Consecutive Hours, Continuous Positive Airway Pressure (ICD-10-PCS; principal; 2020-03-27)
DX: J96.21 Acute and chronic respiratory failure with hypoxia (principal); J18.9 Pneumonia, unspecified organism; G93.41 Metabolic encephalopathy; E87.1 Hypo-osmolality and hyponatremia; J44.0 Chronic obstructive pulmonary disease with (acute) lower respiratory infection; C34.31 Malignant neoplasm of lower lobe, right bronchus or lung; C79.31 Secondary malignant neoplasm of brain; Z20.828 Contact with and (suspected) exposure to other viral communicable diseases; J96.22 Acute and chronic respiratory failure with hypercapnia; F17.200 Nicotine dependence, unspecified, uncomplicated; E87.6 Hypokalemia; K21.9 Gastro-esophageal reflux disease without esophagitis; G89.4 Chronic pain syndrome; I10 Essential (primary) hypertension; E78.5 Hyperlipidemia, unspecified; T50.2X5A Adverse effect of carbonic-anhydrase inhibitors, benzothiadiazides and other diuretics, initial encounter; Z79.899 Other long term (current) drug therapy; Z99.81 Dependence on supplemental oxygen
CPT/HCPCS: 36600; 70450; 70460; 70470; 71045; 71260; 75572; 80048; 80053; 81001; 82803; 83036; 83605; 83735; 84484; 85025; 85379; 87040; 87070; 87205; 93005; 93010; 94640; 94660; 94667; 94668; 94760; 97110; 97163; 97166; 97535; 99285-25; 99406; C9113; C9803; J0456; J1100; J1650; J1815; J1885; J2270; J2543; J3475; J3480; J7060; J7121; J8540; Q9967; U0002